=== PATIENT | male | born 1930 | race Caucasian/White ===

== ENCOUNTER 2016-10-23 09:09 | Emergency (ER) | payer MEDICARE, BC ==
[~2016-10-23] VITALS: Ht 180.3 cm; Wt 79.0 kg
[2016-10-23 09:13] VITALS: BP 137/80; PULSE 81; RESP 16; TEMP 97.9; O2SAT 90
[2016-10-23] MEDS ORDERED: ASPI325T PO (09:25)
[2016-10-23] MEDS ORDERED: CLON0.1T PO (09:25)
[2016-10-23] MEDS ORDERED: METO50TA11 PO (09:25)
[2016-10-23] MEDS ORDERED: DORZ2SOL LEFT EYE (09:25)
[2016-10-23] MEDS ORDERED: BRIM0.155 EACH EYE (09:25)
[2016-10-23] MEDS ORDERED: OMEP40CA2 PO (09:25)
[2016-10-23] MEDS ORDERED: DILT0.05 PO (09:25)
[2016-10-23] MEDS ORDERED: LUMI0.01 LEFT EYE (09:25)
[2016-10-23] MEDS ORDERED: SULF10SU3 LEFT EYE (09:25)
[2016-10-23] MEDS ORDERED: LOSA100T2 PO (09:25)
[2016-10-23] MEDS ORDERED: FEXO15TA PO (09:25)
[2016-10-23] MEDS ORDERED: ALFU10TA2 PO (09:25)
[2016-10-23] MEDS ORDERED: ZITHTAB PO (10:00)
[2016-10-23] MEDS ORDERED: CHERSYP2 PO ×2 (10:00→10:06)
--- NOTE | 2016-10-23 10:00 | PD ---
HPI Chief Complaint: ENT Complaint Time Seen by Provider: 09:54 Travel History International Travel<30 days: No Contact w/Intl Traveler<30days: No Traveled to known affect area: No History of Present Illness HPI Patient presents with complaints of sore throat since last night. Denies nausea vomiting diarrhea or fever. No new rashes. No sick contacts. No tobacco exposure. No history of lung disease. PFSH Past Medical History Atrial Fibrillation: Yes High Cholesterol: Yes GERD: Yes Glaucoma: Yes Hypertension: Yes Medical other: Yes (CATARACTS) Past Surgical History Cardiac Surgery: Yes (PACEMAKER, AV NODE ABLATION) Eye Surgery: Yes (CATARACT, GLAUCOMA) Neurologic Surgery: Yes (BRAIN) Other Surgery: Yes (TORN SPLEEN) Social History Alcohol Use: Yes (SOCIALLY) Tobacco Use: No Substance Use: No Allergies-Medications (Allergen,Severity, Reaction): Coded Allergies: No Known Allergies (Unverified , 10/23/16) Reported Meds & Prescriptions Reported Meds & Active Scripts Active Reported Pamela Allergy (Fexofenadine HCl) 180 Mg Tab 180 Mg PO DAILY Aspirin 325 Mg Tab 325 Mg PO DAILY Blephamide Opth Drops (Prednisolone/Sulfacetamide) 10-0.2 % Susp 2 Drop LEFT EYE Q4H [place] Opth Drops (Bimatoprost) 0.01% Soln 1 Drop LEFT EYE HS Brimonidine Opth Drops (Brimonidine Tartrate) 0.15% Soln 1 Drop EACH EYE TID Dorzolamide Opth Drops (Dorzolamide HCl) 2% Soln 1 Drop LEFT EYE TID Alfuzosin ER 24 HR 10 Mg Tab 10 Mg PO DAILY Omeprazole 40 Mg Cap 40 Mg PO DAILY Losartan-Hydrochlorothiazide 100-25 Mg Tab 1 Tab PO DAILY Clonidine (Clonidine HCl) 0.1 Mg Tab 0.1 Mg PO HS Metoprolol Succinate ER 24 HR (Metoprolol Succinate) 50 Mg Tab 50 Mg PO BID Diltiazem ER 24 HR 180 Mg Lorelei 180 Mg PO DAILY Review of Systems General / Constitutional: No: Fever Eyes: No: Visual changes HENT: Positive: Sore Throat, No: Headaches Cardiovascular: No: Chest Pain or Discomfort Respiratory: No: Shortness of Breath Gastrointestinal: No: Abdominal Pain Genitourinary: No: Dysuria Musculoskeletal: No: Pain Skin: No Rash Neurologic: No: Weakness Psychiatric: No: Depression Endocrine: No: Polydipsia Hematologic/Lymphatic: No: Easy Bruising Physical Exam Narrative GENERAL: Well-nourished, well-developed patient. SKIN: Warm and dry. HEAD: Normocephalic. EYES: No scleral icterus. No injection or drainage. NECK: Supple, trachea midline. No JVD or lymphadenopathy. Throat erythematous without adenopathy or exudate CARDIOVASCULAR: Regular rate and rhythm without murmurs, gallops, or rubs. RESPIRATORY: Breath sounds equal bilaterally. No accessory muscle use. GASTROINTESTINAL: Abdomen soft, non-tender, nondistended. MUSCULOSKELETAL: No cyanosis, or edema. BACK: Nontender without obvious deformity. No CVA tenderness. Data Data Last Documented VS Vital Signs Date Time Temp Pulse Resp B/P Pulse Ox O2 Delivery O2 Flow Rate FiO2 10/23/16 09:13 97.9 81 16 137/80 90 MDM Medical Decision Making Medical Screen Exam Complete: Yes Emergency Medical Condition: Yes Differential Diagnosis Pharyngitis, laryngitis, strep throat Narrative Course Assessment assessment and plan discussed with patient bedside Diagnosis Primary Impression: Pharyngitis Qualified Code: J02.9 - Pharyngitis, unspecified etiology Patient Instructions: General Instructions Additional Instructions: Encouraged rest fluids and Motrin, follow-up with PCP symptoms do not improve Med/Other Pt SpecificInfo: Prescription(s) given Scripts Guaifenesin-Codeine Liq (Cheratussin AC Liq)100-10 Mg/5 Ml Syrp5-10 Ml PO Q4H PRN (COUGH AND COLD SYMPTOMS) #120 ML Ref 0 Do not exceed 6 doses/24 hrs. Prov:Margarito Manning MD 10/23/16 Azithromycin (Zithromax Z-Mukund)250 Mg Ebnt454 Mg PO DIRECTED #1 DSPK Ref 0 500 MG (2 tabs) day 1, then 1 tab days 2-5. Prov:Margarito Manning MD 10/23/16 Disposition: 01 DISCHARGE HOME Condition: Good Margarito Manning MD Oct 23, 2016 10:00
== END 2016-10-23 10:27 | disposition home or self-care (01) ==
LOC: PHED 09:09
DX: J02.9 Acute pharyngitis, unspecified (principal); I48.91 Unspecified atrial fibrillation; E78.00 Pure hypercholesterolemia, unspecified; K21.9 Gastro-esophageal reflux disease without esophagitis; I10 Essential (primary) hypertension
CPT/HCPCS: 99282

== ENCOUNTER → 2017-10-12 | Outpatient (CLI) | payer MEDICARE, BC ==
[~2017-10-12] MED LIST: ALFU10TA2 PO; ASPI-183 PO; BRIM0.155 EACH EYE; CHERSYP2 PO; CLON0.1T PO; DILT0.05 PO; DORZ2SOL LEFT EYE; FEXO15TA PO; LOSA100T2 PO; LUMI0.01 LEFT EYE; METO1TAB9 PO; OMEP40CA2 PO; SULF10SU3 LEFT EYE; ZITHTAB PO
--- NOTE | 2017-10-12 15:32 | RADRPT ---
EXAM DATE/TIME: 10/12/2017 13:34 [place] COMPARISON: No previous studies available for comparison. INDICATIONS : Short of breath. RADIATION DOSE: 12.94 CTDIvol (mGy) MEDICAL HISTORY : Chronic obstructive pulmonary disease. SURGICAL HISTORY : Pacemaker. ENCOUNTER: Initial ACUITY: 2 months PAIN SCALE: 3/10 LOCATION: Bilateral chest TECHNIQUE: Volumetric scanning of the chest was performed. Using automated exposure control and adjustment of t he mA and/or kV according to patient size, radiation dose was kept as low as reasonably achievable to obtain optimal diagnostic quality images. DICOM format image data is available electronically for r eview and comparison. Follow-up recommendations for detected pulmonary nodules are based at a minimum on nodule size and pa tient risk factors according to Fleischner Society Guidelines. FINDINGS: LUNGS: Marked emphysematous changes are present with hyperinflation. There is other consolidation. Trace pleural effusions are evident MEDIASTINUM: Moderate coronary calcifications are noted. The heart is enlarged with trace pericardial effusion. Defibrillator is evident . AXILLAE: Within normal limits. No lymphadenopathy. MUSCULOSKELETAL: Changes thoracic spine MISCELLANEOUS: The visualized upper abdominal organs demonstrate no acute abnormality. CONCLUSION: Marked emphysematous changes without hyperinflation. Compensated cardiomegaly with moderate coronary calcifications. Trace pleural effusions. Kiel Govea MD FACR on October 12, 2017 at 15:22 Board Certified Radiologist. This report was verified electronically.
== END ==
LOC: HRSP 11:41
DX: J44.9 Chronic obstructive pulmonary disease, unspecified (principal); R06.00 Dyspnea, unspecified; I10 Essential (primary) hypertension
CPT/HCPCS: 71250; 94060; 94726; 94729

== ENCOUNTER 2017-11-17 12:33 | Emergency (ER) | payer MEDICARE, BC ==
[~2017-11-17] VITALS: Ht 180.3 cm; Wt 80.5 kg
[2017-11-17 12:40] VITALS: BP 125/62; PULSE 81; RESP 18; TEMP 97.6; O2SAT 93
[2017-11-17] MEDS ORDERED: SODIUM CHLOR 0.9% 1000 ML INJ 1,000 ML IV SCH (12:57)
--- NOTE | 2017-11-17 12:59 | PD ---
HPI Chief Complaint: GI Complaint Time Seen by Provider: 12:49 Travel History International Travel<30 days: No Contact w/Intl Traveler<30days: No Traveled to known affect area: No History of Present Illness HPI 87-year-old male complains of nausea and vomiting since yesterday evening about 9 PM. At least 15 episodes of vomiting occurred overnight. No blood. Positive flatus. Positive bowel movements. No diarrhea or fever. No similar prior episodes. Food yesterday was [place], eggs and hash browns. Pt reports hash browns may have been spoiled. PFSH Past Medical History Atrial Fibrillation: Yes Cardiovascular Problems: Yes (Pacer) High Cholesterol: Yes GERD: Yes Glaucoma: Yes Hypertension: Yes Respiratory: Yes (COPD) Influenza Vaccination: Yes ?: Not Past Surgical History Cardiac Surgery: Yes (PACEMAKER, AV NODE ABLATION) Eye Surgery: Yes (CATARACT, GLAUCOMA) Neurologic Surgery: Yes (BRAIN) Other Surgery: Yes (TORN SPLEEN) Social History Alcohol Use: Yes (2 DRINKS PER NIGHT) Tobacco Use: No Substance Use: No Allergies-Medications (Allergen,Severity, Reaction): Coded Allergies: No Known Allergies (Unverified Adverse Reaction, Unknown, 11/17/17) Reported Meds & Prescriptions Reported Meds & Active Scripts Active Reported Duoneb (Ipratropium-Albuterol Neb) 0.5-2.5 Mg/3 Ml Neb 1 Nebule INH DAILY Ipratropium Neb (Ipratropium [place]) 0.5 Mg/2.5 Ml Amp 0.5 Mg NEB TID Pamela Allergy (Fexofenadine HCl) 180 Mg Tab 180 Mg PO DAILY Latanoprost Opth Drops (Latanoprost) 0.005% Drops 1 Drop EACH EYE HS Refrigerate until opened. Verapamil ER 24 HR (Verapamil HCl) 240 Mg Tab 240 Mg PO DAILY Aspirin 325 Mg Tab 325 Mg PO DAILY Blephamide Opth Drops (Prednisolone/Sulfacetamide) 10-0.2 % Susp 2 Drop LEFT EYE Q4H Brimonidine Opth Drops (Brimonidine Tartrate) 0.15% Soln 1 Drop EACH EYE TID Dorzolamide Opth Drops (Dorzolamide HCl) 2% Soln 1 Drop LEFT EYE TID Alfuzosin ER 24 HR 10 Mg Tab 10 Mg PO DAILY Omeprazole 40 Mg Cap 40 Mg PO DAILY Losartan-Hydrochlorothiazide 100-25 Mg Tab 1 Tab PO DAILY Clonidine (Clonidine HCl) 0.1 Mg Tab 0.2 Mg PO HS Metoprolol Succinate ER 24 HR (Metoprolol Succinate) 50 Mg Tab 50 Mg PO BID Review of Systems Except as stated in HPI: all other systems reviewed are Neg General / Constitutional: No: Fever Eyes: No: Photophobia HENT: No: Vertigo Physical Exam Narrative GENERAL: 87 yo M, WNWD, NAD Vital Signs Date Time Temp Pulse Resp B/P (MAP) Pulse Ox O2 Delivery O2 Flow Rate FiO2 11/17/17 12:52 16 11/17/17 12:40 97.6 81 18 125/62 (83) 93 SKIN: Warm and dry. HEAD: Atraumatic. Normocephalic. EYES: Pupils equal and round. No scleral icterus. No injection or drainage. ENT: No nasal bleeding or discharge. Mucous membranes pink and moist. NECK: Trachea midline. No JVD. CARDIOVASCULAR: Regular rate and rhythm. RESPIRATORY: No accessory muscle use. Clear to auscultation. Breath sounds equal bilaterally. GASTROINTESTINAL: Abdomen soft, non-tender, nondistended. Hepatic and splenic margins not palpable. MUSCULOSKELETAL: Extremities without clubbing, cyanosis, or edema. No obvious deformities. NEUROLOGICAL: Awake and alert. No obvious cranial nerve deficits. Motor grossly within normal limits. Five out of 5 muscle strength in the arms and legs. Normal speech. PSYCHIATRIC: Appropriate mood and affect; insight and judgment normal. Data Data Last Documented VS Vital Signs Date Time Temp Pulse Resp B/P (MAP) Pulse Ox O2 Delivery O2 Flow Rate FiO2 11/17/17 13:52 11/17/17 13:45 70 16 91 11/17/17 12:40 97.6 Orders Orders Basic Metabolic Panel (Bmp) (11/17/17 12:57) Complete Blood Count With Diff (11/17/17 12:57) Iv Access Insert/Monitor (11/17/17 12:57) Ecg Monitoring (11/17/17 12:57) Oximetry (11/17/17 12:57) Ondansetron Inj (Zofran Inj) (11/17/17 13:00) Sodium Chlor 0.9% 1000 Ml Inj (Ns 1000 M (11/17/17 12:57) Sodium Chloride 0.9% Flush (Ns Flush) (11/17/17 13:00) Oral Rehydration (11/17/17 13:49) Ed Discharge Order (11/17/17 13:50) Labs Laboratory Tests Test 11/17/17 13:05 White Blood Count 6.5 TH/MM3 Red Blood Count 4.47 MIL/MM3 Hemoglobin 15.1 GM/DL Hematocrit 45.6 % Mean Corpuscular Volume 102.0 FL Mean Corpuscular Hemoglobin 33.7 PG Mean Corpuscular Hemoglobin Concent 33.1 % Red Cell Distribution Width 12.1 % Platelet Count 171 TH/MM3 Mean Platelet Volume 6.7 FL Neutrophils (%) (Auto) 91.6 % Lymphocytes (%) (Auto) 3.1 % Monocytes (%) (Auto) 4.3 % Eosinophils (%) (Auto) 0.7 % Basophils (%) (Auto) 0.3 % Neutrophils # (Auto) 6.0 TH/MM3 Lymphocytes # (Auto) 0.2 TH/MM3 Monocytes # (Auto) 0.3 TH/MM3 Eosinophils # (Auto) 0.0 TH/MM3 Basophils # (Auto) 0.0 TH/MM3 CBC Comment DIFF FINAL Differential Comment Blood Urea Nitrogen 22 MG/DL Creatinine 1.20 MG/DL Random Glucose 168 MG/DL Calcium Level 9.2 MG/DL Sodium Level 129 MEQ/L Potassium Level 3.9 MEQ/L Chloride Level 92 MEQ/L Carbon Dioxide Level 28.9 MEQ/L Anion Gap 8 MEQ/L Estimat Glomerular Filtration Rate 57 ML/MIN MDM Medical Decision Making Medical Screen Exam Complete: Yes Emergency Medical Condition: Yes Medical Record Reviewed: Yes Differential Diagnosis Constipation, Gastritis, Acute Cholecystitis, Biliary Colic, Pancreatitis, PANTOJA , Hepatitis, Bowel Obstruction, Cystitis, Mesenteric Ischemia, AAA, Appendicitis , Renal Stone/Hydronephrosis, GERD, perforated viscous Narrative Course CBC & BMP Diagram 11/17/17 13:05 Calcium Level 9.2 1L NS given along with zofran Time of reassessment: 1400 hrs.: Patient reports feeling much better. Patient tolerated about 10 ounces of Gatorade. He received Zofran and normal saline. The patient's ready for discharge. Diagnosis Primary Impression: Nausea & vomiting Qualified Codes: R11.2 - Nausea with vomiting, unspecified Additional Impressions: Hyponatremia Dehydration Referrals: Primary Care Physician Med/Other Pt SpecificInfo: Prescription(s) given Disposition: 01 DISCHARGE HOME Condition: Stable Bony Taylor MD Nov 17, 2017 12:59
[2017-11-17] MEDS ORDERED: SODIUM CHLORIDE 0.9% FLUSH 10 ML FLUSH IV FLUSH PRN (13:00)
[2017-11-17] MEDS ORDERED: ONDANSETRON HCL 4 MG/2 ML VIAL IVP ONE (13:00)
[2017-11-17 13:19] LABS: BASOPHIL % 0.3 % (0.0-2.0); EOSINOPHIL % 0.7 % (0.0-4.0); HEMATOCRIT 45.6 % (39.0-51.0); HEMOGLOBIN 15.1 GM/DL (13.0-17.0); LYMPH % 3.1 % (9.0-44.0); LYMPHOCYTE # 0.2 TH/MM3 (1.0-4.8); MEAN CORPUSCULAR HEMOGLOBIN 33.7 PG (27.0-34.0); MEAN CORPUSCULAR HGB CONC 33.1 % (32.0-36.0); MEAN PLATELET VOLUME 6.7 FL (7.0-11.0); MONO % 4.3 % (0.0-8.0); MONOCYTE # 0.3 TH/MM3 (0-0.9); NEUT % 91.6 % (16.0-70.0); PLATELET COUNT 171 TH/MM3 (150-450); RED BLOOD COUNT 4.47 MIL/MM3 (4.50-5.90); RED CELL DISTRIBUTION WIDTH 12.1 % (11.6-17.2); WHITE BLOOD COUNT 6.5 TH/MM3 (4.0-11.0)
[2017-11-17] MEDS ORDERED: VERA1TAB17 PO (13:28)
[2017-11-17] MEDS ORDERED: LATA0.002 EACH EYE (13:28)
[2017-11-17] MEDS ORDERED: FEXO15TA PO (13:28)
[2017-11-17] MEDS ORDERED: IPRA0.02 NEB (13:28)
[2017-11-17 13:29] LABS: CALCIUM 9.2 MG/DL (8.5-10.1)
[2017-11-17 13:30] LABS: BICARBONATE 28.9 MEQ/L (21.0-32.0)
[2017-11-17] MEDS ORDERED: IPRASOL INH (13:30)
[2017-11-17 13:33] LABS: CREATININE 1.2 MG/DL (0.60-1.30)
[2017-11-17 13:45] VITALS: BP 98/51; PULSE 70; RESP 16; O2SAT 91
[2017-11-17] MEDS ORDERED: ZOFR4TAB3 SL (14:07)
== END 2017-11-17 14:19 | disposition home or self-care (01) ==
LOC: PHED 12:33
DX: R11.2 Nausea with vomiting, unspecified (principal); E87.1 Hypo-osmolality and hyponatremia; E86.0 Dehydration; I48.91 Unspecified atrial fibrillation; E78.00 Pure hypercholesterolemia, unspecified; K21.9 Gastro-esophageal reflux disease without esophagitis; I10 Essential (primary) hypertension; J44.9 Chronic obstructive pulmonary disease, unspecified
CPT/HCPCS: 80048; 85025; 96361; 96374; 99284; J2405; J7030

== ENCOUNTER 2018-06-19 08:58 | Inpatient (IN) ==
[2018-06-19] MEDS ORDERED: MethylPREDNISolone Sod Succinate Inj 125 MG/2 ML Vial IV.PUSH ONE (09:02)
[2018-06-19 09:22] LABS: Baso % (Auto) 0.4 % (0.0-2.0); Eos % (Auto) 0.7 % (0.0-4.0); Hematocrit 41.1 % (39.0-51.0); Lymph # (Auto) 0.3 th/mm3 (1.0-4.8); Lymph % (Auto) 4.2 % (9.0-44.0); Mean Corpuscular Hemoglobin 35.8 pg (27.0-34.0); Mean Corpuscular Volume 105.2 fL (80.0-100.0); Mean Platelet Volume 7.3 fL (7.0-11.0); Mono # (Auto) 0.6 th/mm3 (0.0-0.9); Mono % (Auto) 9.3 % (0.0-8.0); Neut % (Auto) 85.4 % (16.0-70.0); Platelet Count 181 th/mm3 (150-450); Red Blood Count 3.91 mil/mm3 (4.50-5.90); Red Cell Distribution Width 12.1 % (11.6-17.2); White Blood Count 6.9 th/mm3 (4.0-11.0)
[2018-06-19] MEDS ORDERED: Azithromycin Inj 500 MG in Sodium Chlor 0.9% Inj 250 ML IV.SIG ONE (09:25)
--- NOTE | 2018-06-19 09:29 | ED ---
HPI General Chief Complaint: Respiratory Symptoms Stated Complaint: breathing problems Time Seen by Provider: 06/19/18 09:01 Source: patient Mode of arrival: EMS Limitations: no limitations History of Present Illness HPI Narrative: Patient is an 87-year-old male with history of COPD, presents the emergency room complaints of shortness of breath. Patient reports that he is not oxygen dependent and quit smoking about 40 years ago. Patient reports that about 3-4 days ago, he began to feel short of breath. Patient reports that along with his shortness of breath, he has had a nonproductive cough. Patient reports that shortness of breath is exacerbated by ambulation, nothing makes it better. Patient has also noticed increased wheezing, he did try taking a nebulizer treatment but has not noticed any difference or improvement with the symptoms. Patient reports that at baseline, he is very active and golfs every day, patient has not been able to golf for the past 3-4 days. Patient denies any fevers, reports that he has been getting night sweats. Denies any sick contacts at home. Patient did receive 3 nebulizer treatments prior to arrival to the ER. EMS noted that patient was hypoxic with a pulse ox of 87% on room air. Onset (ago): day(s) (3-4 days) Duration: constant Severity: severe Relieving factors: nothing Exacerbating factors: exertion Description of mucous: Reports clear and watery Able to tolerate fluids by mouth: Yes Associated symptoms: Reports myalgias, cough and shortness of breath Treatments prior to arrival: Reports other (nebulizer treatments) Related Data Home Medications Medication Instructions Recorded Confirmed acetaminophen [Tylenol] 500 mg PO BID 06/19/18 06/19/18 alfuzosin 10 mg PO HS 06/19/18 06/19/18 aspirin 325 mg PO DAILY 06/19/18 06/19/18 brimonidine 1 drp LEFT EYE BID 06/19/18 06/19/18 clonidine HCl 0.2 mg PO HS 06/19/18 06/19/18 dorzolamide 1 drp LEFT EYE BID 06/19/18 06/19/18 fexofenadine [Pamela Allergy] 180 mg PO DAILY 06/19/18 06/19/18 fluticasone 2 spray INTRANASAL DAILY PRN 06/19/18 06/19/18 ipratropium-albuterol 3 ml INHALATION Q8H 06/19/18 06/19/18 latanoprost 1 drp LEFT EYE QPM 06/19/18 06/19/18 losartan-hydrochlorothiazide 1 tab PO DAILY 06/19/18 06/19/18 metoprolol succinate 50 mg PO BID 06/19/18 06/19/18 omeprazole 40 mg PO HS 06/19/18 06/19/18 prednisolone acetate 1 drp RIGHT EYE BID 06/19/18 06/19/18 tiotropium-olodaterol [Stiolto 2 puff INHALATION DAILY 06/19/18 06/19/18 Respimat] verapamil 240 mg PO DAILY 06/19/18 06/19/18 Allergies Allergy/AdvReac Type Severity Reaction Status Date / Time No Known Allergies Allergy Verified 06/19/18 09:04 Review of Systems ROS: all other systems reviewed are negative [facility] Medical History Medical History Atrial fibrillation (Acute) BPH (benign prostatic hyperplasia) (Acute) COPD (chronic obstructive pulmonary disease) (Acute) High cholesterol (Acute) Hypertension (Acute) Intracranial hemorrhage (Acute) Vertigo (Acute) Social History Social History Substance History: Active Abuse Smoking Status: Former smoker How Often Do You Have a Drink Containing Alcohol: 4 or more times a week Recent Travel in [facility] within the Last 8 Weeks: No Recent Out of Country Travel within the Last 8 Weeks: No Substance Abuse Detail Alcohol: Substance Use Status: Active Route Used Substance Abuse: By Mouth Substance Frequency: 2 mixed drinks/day Immunization History Tetanus Immunization: <5 Years Exam Narrative Exam Narrative: GENERAL: Moderate distress SKIN: Focused skin assessment warm/dry. HEAD: Atraumatic. Normocephalic. EYES: Pupils equal and round. No scleral icterus. No injection or drainage. ENT: No nasal bleeding or discharge. Mucous membranes pink and moist. NECK: Trachea midline. No JVD. CARDIOVASCULAR: Tachycardic. No murmur appreciated. RESPIRATORY: Positive accessory muscle use - intercostal retractions evident. Scattered wheezing. Breath sounds equal bilaterally. GASTROINTESTINAL: Abdomen soft, non-tender, nondistended. Hepatic and splenic margins not palpable. MUSCULOSKELETAL: No obvious deformities. No clubbing. No cyanosis. No edema. NEUROLOGICAL: Awake and alert. No obvious cranial nerve deficits. Motor grossly within normal limits. Normal speech. PSYCHIATRIC: Appropriate mood and affect; insight and judgment normal. Course Initial Documented Vital Signs Temperature 99.3 F 06/19/18 09:00 Pulse Rate 75 06/19/18 09:00 Respiratory Rate 26 H 06/19/18 09:00 Blood Pressure 154/78 H 06/19/18 09:00 Pulse Oximetry 86 L 06/19/18 09:00 Last Documented Vital Signs Temperature 99.3 F 06/19/18 09:00 Pulse Rate 71 06/19/18 09:55 Respiratory Rate 22 06/19/18 09:55 Blood Pressure 107/44 L 06/19/18 09:55 Pulse Oximetry 89 L 06/19/18 09:55 Critical Care Time Critical Care Time: Yes Total Critical Care Time: 30 Attestation: Aggregate critical care time was 30 minutes. Time to perform other separately billable procedures was not included in the critical care time. My time did not include minutes spent treating any other patients simultaneously or on activities that did not directly contribute to the patient's treatment. The services I provided to this patient were to treat and/or prevent clinically significant deterioration that could result in: , decompensation, deterioration I provided critical care services requiring my management, as noted below: Chart data review, documentation time, medication orders and management, vital sign assessments/reviewing monitor data, ordering and reviewing lab tests, ordering and interpreting/reviewing x-rays and diagnostic studies, care of the patient and discussion of the patient with the admitting physicians. Medical Decision Making MDM Narrative Medical decision making narrative: During the course of the patients emergency department visit, the patients history, examination, and differential diagnosis were reviewed with the patient. The patient was placed on a radiation monitor with oximetry and frequent blood pressure monitoring. The patient had an IV access obtained and blood work sent for analysis. The patient was initially provided IV steroids as well as duonebs, oxygen was placed as patient was hypoxic with a pulse ox of 84-87% on room air. I did initiate a sepsis workup - patient has been pancultured The patients laboratory studies were reviewed and remarkable for: WBC 6.9, hemoglobin 14.0, hematocrit 41.1, platelets 181 Sodium 135, potassium 3.4, chloride 98, BUN 32, creatinine 1.60, lactic acid 2.9 Glucose 155 ABG on 4 L of oxygen shows that his oxygen sats are 89% X-ray of the lung shows patchy infiltrates throughout the right lung. Patient with pneumonia, he has been pancultured and been given azithromycin as well as Rocephin for treatment of community acquired pneumonia. Patient is hypoxic, he will require admission to the hospital. case reviewed with Dr. Russell who accepts pt to service Medical Screen Exam Complete: Yes Emergency Medical Condition: Yes Differential Diagnosis Differential Diagnosis: Sepsis, pneumonia, COPD exacerbation, PE Medical Records Medical records reviewed: Yes I reviewed the patient's medical records. Lab Data Result diagrams: 06/19/18 09:00 06/19/18 09:00 Lab Results 06/19/18 06/19/18 06/19/18 Range/Units 09:00 09:00 09:00 CBC w Diff Auto diff final WBC 6.9 (4.0-11.0) th/mm3 RBC 3.91 L (4.50-5.90) mil/mm3 Hgb 14.0 (13.0-17.0) gm/dL Hct 41.1 (39.0-51.0) % MCV 105.2 H (80.0-100.0) fL MCH 35.8 H (27.0-34.0) pg MCHC 34.0 (32.0-36.0) % RDW 12.1 (11.6-17.2) % Plt Count 181 (150-450) th/mm3 MPV 7.3 (7.0-11.0) fL Neut % (Auto) 85.4 H (16.0-70.0) % Lymph % (Auto) 4.2 L (9.0-44.0) % [place] % (Auto) 9.3 H (0.0-8.0) % Eos % (Auto) 0.7 (0.0-4.0) % Baso % (Auto) 0.4 (0.0-2.0) % Neut # (Auto) 6.0 (1.8-7.7) th/mm3 Lymph # (Auto) 0.3 L (1.0-4.8) th/mm3 [place] # (Auto) 0.6 (0.0-0.9) th/mm3 Eos # (Auto) 0.0 (0.0-0.4) th/mm3 Baso # (Auto) 0.0 (0.0-0.2) th/mm3 WBC Differential . Differential Comment . PT 12.3 H (9.8-11.6) sec INR 1.2 Ratio APTT 32.1 H (23.4-31.7) sec Puncture Site Patient Temperature O2 Saturation (90-100) % ABG pH (7.380-7.420) ABG pCO2 (38-42) mmHg ABG pO2 (61-120) mmHg ABG HCO3 (22-26) mmol/L ABG O2 Content (12.0-20.0) Vol % ABG Base Excess (-2-2) mmol/L ABG Methemoglobin (0-2) % Cl Test Hemoglobin (12.0-16.0) G/DL Carboxyhemoglobin (0-4) % O2 Delivery Device Liter Flow L/M Critical Value Sodium 135 L (136-145) meq/L Potassium 3.4 L (3.5-5.1) meq/L Chloride 98 (98-107) meq/L Carbon Dioxide 22.5 (21.0-32.0) meq/L Anion Gap 15 (5-15) meq/L BUN 32 H (7-18) mg/dL Creatinine 1.60 H (0.60-1.30) mg/dL Estimated GFR 41 L (>89) mL/min Random Glucose 155 H (74-106) mg/dL Lactic Acid (0.4-2.0) mmol/L Calcium 8.4 L (8.5-10.1) mg/dL Magnesium 1.8 (1.5-2.5) mg/dL Total Bilirubin 2.4 H (0.2-1.0) mg/dL AST 16 (15-37) U/L ALT 17 (12-78) U/L Alkaline Phosphatase 87 (45-117) U/L Total Creatine Kinase 69 (39-308) U/L Troponin I 0.02 (0.02-0.05) ng/mL Total Protein 6.9 (6.4-8.2) g/dL Albumin 3.1 L (3.4-5.0) g/dL 06/19/18 06/19/18 Range/Units 09:00 09:25 CBC w Diff WBC (4.0-11.0) th/mm3 RBC (4.50-5.90) mil/mm3 Hgb (13.0-17.0) gm/dL Hct (39.0-51.0) % MCV (80.0-100.0) fL MCH (27.0-34.0) pg MCHC (32.0-36.0) % RDW (11.6-17.2) % Plt Count (150-450) th/mm3 MPV (7.0-11.0) fL Neut % (Auto) (16.0-70.0) % Lymph % (Auto) (9.0-44.0) % [place] % (Auto) (0.0-8.0) % Eos % (Auto) (0.0-4.0) % Baso % (Auto) (0.0-2.0) % Neut # (Auto) (1.8-7.7) th/mm3 Lymph # (Auto) (1.0-4.8) th/mm3 [place] # (Auto) (0.0-0.9) th/mm3 Eos # (Auto) (0.0-0.4) th/mm3 Baso # (Auto) (0.0-0.2) th/mm3 WBC Differential Differential Comment PT (9.8-11.6) sec INR Ratio APTT (23.4-31.7) sec Puncture Site Right radial Patient Temperature 98.6 O2 Saturation 89 L* (90-100) % ABG pH 7.44 H (7.380-7.420) ABG pCO2 34 L (38-42) mmHg ABG pO2 67 (61-120) mmHg ABG HCO3 23 (22-26) mmol/L ABG O2 Content 16.5 (12.0-20.0) Vol % ABG Base Excess -1.1 (-2-2) mmol/L ABG Methemoglobin 1.5 (0-2) % Cl Test Present Hemoglobin 13.2 (12.0-16.0) G/DL Carboxyhemoglobin 2.7 (0-4) % O2 Delivery Device Nasal cannula Liter Flow 4.00 L/M Critical Value Yes Sodium (136-145) meq/L Potassium (3.5-5.1) meq/L Chloride (98-107) meq/L Carbon Dioxide (21.0-32.0) meq/L Anion Gap (5-15) meq/L BUN (7-18) mg/dL Creatinine (0.60-1.30) mg/dL Estimated GFR (>89) mL/min Random Glucose (74-106) mg/dL Lactic Acid 2.9 H (0.4-2.0) mmol/L Calcium (8.5-10.1) mg/dL Magnesium (1.5-2.5) mg/dL Total Bilirubin (0.2-1.0) mg/dL AST (15-37) U/L ALT (12-78) U/L Alkaline Phosphatase (45-117) U/L Total Creatine Kinase (39-308) U/L Troponin I (0.02-0.05) ng/mL Total Protein (6.4-8.2) g/dL Albumin (3.4-5.0) g/dL Imaging Data Radiologist's impression: Chest X-Ray 06/19/18 09:02 CONCLUSION: Patchy infiltrates throughout the right lung. Medical treatment and follow-up to resolution using serial radiographs. ECG Data EKG Prior to Arrival: No Attestation: I personally reviewed and interpreted this ECG as follows: Interpretation: EKG at 0918: Ventricular paced at 69bpm Discharge Plan Discharge Disposition Patient Disposition: 30 Still Patient Discharge Condition Condition: Serious Discharge Details Diagnosis: Hypoxia, Pneumonia, Hypokalemia, COPD exacerbation Physicians Team ED Provider: Dory Almendarez Primary Care Provider: Raffy Cooley Rxs /Orders / Referrals /Forms Prescriptions: No Action latanoprost 0.005 % Drops 1 drp LEFT EYE QPM RF: 0 ipratropium-albuterol 0.5 mg-3 mg(2.5 mg base)/3 mL Solution For Nebulization 3 ml INHALATION Q8H RF: 0 aspirin 325 mg Tablet 325 mg PO DAILY RF: 0 metoprolol succinate 50 mg Tablet Extended Release 24 Hr 50 mg PO BID RF: 0 fexofenadine [Pamela Allergy] 180 mg Tablet 180 mg PO DAILY RF: 0 omeprazole 40 mg Capsule,Delayed Release(Dr/Ec) 40 mg PO HS RF: 0 prednisolone acetate 0.12 % Drops,Suspension 1 drp RIGHT EYE BID RF: 0 losartan-hydrochlorothiazide 100-25 mg Tablet 1 tab PO DAILY RF: 0 clonidine HCl 0.2 mg Tablet 0.2 mg PO HS RF: 0 brimonidine 0.2 % Drops 1 drp LEFT EYE BID RF: 0 fluticasone 50 mcg/actuation [place],Suspension 2 spray INTRANASAL DAILY PRN (Reason: Allergic Symptoms) RF: 0 verapamil 240 mg Capsule,Ext Rel. Pellets 24 Hr 240 mg PO DAILY RF: 0 dorzolamide 2 % Drops 1 drp LEFT EYE BID RF: 0 alfuzosin 10 mg Tablet Extended Release 24 Hr 10 mg PO HS RF: 0 acetaminophen [Tylenol] 325 mg Capsule 500 mg PO BID RF: 0 tiotropium-olodaterol [Stiolto Respimat] 2.5-2.5 mcg/actuation Mist 2 puff INHALATION DAILY RF: 0 Status ED Status: With Doctor
[2018-06-19 09:32] LABS: ABG Base Excess -1.1 mmol/L (-2-2); ABG PCO2 34 mmHg (38-42); ABG PO2 67 mmHg (61-120)
[2018-06-19 09:33] LABS: Activated Partial Thrombo Time 32.1 sec (23.4-31.7); INR 1.2 Ratio; Prothrombin Time 12.3 sec (9.8-11.6)
--- NOTE | 2018-06-19 09:41 | XR ---
EXAM DATE: 06/19/2018 9:37 AM EST AGE/SEX: 87 years / Male INDICATIONS: Short of breath. CLINICAL DATA: This is the patient's initial encounter. Patient reports that signs and symptoms have been present for 4 - 6 days and indicates a pain score of 0/10. MEDICAL/SURGICAL HISTORY: Chronic obstructive pulmonary disease. Pacemaker. COMPARISON: No prior exams available for comparison. FINDINGS: A single AP view of the chest demonstrates patchy opacities throughout the right upper lobe, right mi ddle lobe and right lower lobe. Left lung relatively clear although there is some subsegmental atelec tasis left lung base. Heart enlarged. Left-sided pacemaker with 2 intact leads.. The cardiomediastin al contours are unremarkable. Osseous structures are intact. CONCLUSION: Patchy infiltrates throughout the right lung. Medical treatment and follow-up to resolution using ser ial radiographs. Electronically signed by: Eugene Valiente MD 06/19/2018 9:39 AM EST
[2018-06-19 09:54] LABS: Chloride 98 meq/L (98-107); Potassium 3.4 meq/L (3.5-5.1); Sodium 135 meq/L (136-145)
[2018-06-19 09:55] LABS: Albumin 3.1 g/dL (3.4-5.0); Anion Gap 15 meq/L (5-15); Blood Urea Nitrogen 32 mg/dL (7-18); Calcium 8.4 mg/dL (8.5-10.1); Carbon Dioxide 22.5 meq/L (21.0-32.0); Glucose,Random 155 mg/dL (74-106); Magnesium 1.8 mg/dL (1.5-2.5)
[2018-06-19 09:58] LABS: Alanine Aminotransferase 17 U/L (12-78); Aspartate Aminotransferase 16 U/L (15-37); Glomerular Filtration Rate 41 mL/min (>89)
[2018-06-19 09:59] LABS: Total Protein 6.9 g/dL (6.4-8.2)
[2018-06-19 10:01] LABS: Alkaline Phosphatase 87 U/L (45-117)
[2018-06-19 10:03] LABS: Creatine Kinase 69 U/L (39-308)
[2018-06-19 10:04] LABS: Troponin I 0.02 ng/mL (0.02-0.05)
[2018-06-19] MEDS: Sod Chloride 0.9% Inj 1,000 ML IV.SIG SCH ×2 (10:38→12:46)
[2018-06-19] MEDS ORDERED: Acetaminophen 325 MG Tablet PO PRN (10:50)
[2018-06-19] MEDS ORDERED: Bisacodyl 10 MG Supp RECTAL PRN (10:50)
[2018-06-19] MEDS ORDERED: Heparin - SQ 10,000 UNITS/ML Vial SQ SCH (11:00)
[2018-06-19] MEDS ORDERED: Haloperidol Inj 5 MG/ML Ampul IV.PUSH PRN (13:14)
[2018-06-19] MEDS ORDERED: LORazepam 1 MG Tablet PO PRN (13:14)
--- NOTE | 2018-06-19 13:15 | P.HP ---
History of Present Illness Primary Care Physician: Raffy Cooley MD Chief Complaint: Shortness of breath History of Present Illness: This is a 87-year-old male with history of COPD, atrial fibrillation, BPH, hyperlipidemia, hypertension, vertigo and remote intracranial hemorrhage. Patient presents to the emergency department complaining of shortness of breath associated with wheezing and nonproductive cough for 3-4 days. He has been using nebulization treatments without improvement of symptoms. Patient also complains of decreased exercise tolerance states he is very active and golfs every day which he has had been able to for the past 4 days. No fever but has been diaphoretic. Chest x-ray independently reviewed by me showed right lung pneumonia with patchy infiltrates. He received IV Rocephin and Zithromax in the emergency department. Patient seen on the floor states he is better thought he would not make it this morning. All other systems reviewed negative Inpatient Certification: I certify that the inpatient services were ordered in accordance with Medicare regulations governing the order. This includes certification that hospital inpatient services are reasonable and necessary and in the case of services not specified as inpatient-only under 42 CFR 419.22(n), that they are appropriately provided as inpatient services in accordance to with the 2-midnight benchmark under 43 CFR 412.3(e) Estimated Total Length of Stay (Days): 2 Plans for Post Hospital Care: Not yet determined Review of Systems All other systems reviewed negative except as stated in HPI PMFSH - History History Provided By: Patient - Medical History Medical History: Medical History (Last Updated 06/19/18 @ 13:50 by Ganesh Russell MD) Pacemaker (Acute) Atrial fibrillation BPH (benign prostatic hyperplasia) COPD (chronic obstructive pulmonary disease) High cholesterol Hypertension Intracranial hemorrhage Vertigo - Family History Family History: Family History (Last Updated 06/19/18 @ 13:51 by Ganesh Russell MD) Other No pertinent family history - Social History I have reviewed the patient's Social History: Yes - Tobacco History Second Hand Smoke Exposure: No Smoking Status: Former smoker - Alcohol History How Often Do You Have a Drink Containing Alcohol: 4 or more times a week - Substance Use History Substance History: No History of Abuse - Substance Use Type Alcohol Status: Active Route Used: By Mouth Frequency: 2 mixed drinks/day - Travel History Recent Travel in the [place] Within the Last 8 Weeks: No Recent Travel Out of the Country Within the Last 8 Weeks: No - Immunization History Tetanus Immunization: <5 Years Medications and Allergies Active Medications: Active Medications Acetaminophen (Tylenol) 650 mg PO Q4H PRN PRN Reason: Temp > 100.4 Albuterol (Duoneb Neb (Sosa)) 1 ampul NEB QID NEB [facility] Last Admin: 06/19/18 12:23 Dose: 1 ampul Albuterol (Albuterol Neb (Prn)) 2.5 mg NEB Q2HR NEB PRN PRN Reason: SHORTNESS OF BREATH Aspirin (Aspirin) 325 mg PO DAILY [facility] Bisacodyl (Dulcolax Supp) 10 mg RECTAL DAILY PRN PRN Reason: SEVERE CONSITIPATION Brimonidine Tartrate (Alphagan 0.2% Opth Drops) 1 drops LEFT EYE BID [facility] Clonidine HCl (Catapres) 0.2 mg PO HS [facility] Dorzolamide HCl (Trusopt 2% Opth Drops) 1 drop LEFT EYE BID [facility] Fluticasone Propionate (Flonase Nasal Eloy) 2 spray EACH NARE DAILY PRN PRN Reason: ALLERGIES Sodium Chloride (Ns Inj) 1,000 mls @ 50 mls/hr IV.CONT .Q20H [facility] Azithromycin 500 mg/ Sodium (Chloride) 250 mls @ 250 mls/hr IV.SIG Q24H [facility] Ceftriaxone Sodium 1,000 mg/ (Sodium Chloride) 100 mls @ 200 mls/hr IV.SIG Q24H [facility] Lactulose (Lactulose Liq) 30 ml PO DAILY PRN PRN Reason: SEVERE CONSITIPATION Latanoprost (Xalatan 0.005% Opth Drops) 1 drop LEFT EYE HS [facility] Loratadine (Claritin) 10 mg PO DAILY [facility] Methylprednisolone Sodium Succinate (Solumedrol Inj) 60 mg IV.PUSH Q6H [facility] Metoprolol Succinate (Toprol Xl) 50 mg PO BID [facility] Ondansetron HCl (Zofran Inj) 4 mg IV.PUSH Q6H PRN PRN Reason: NAUSEA OR VOMITING Pantoprazole Sodium (Protonix) 40 mg PO HS [facility] Patient Own Medication Prednisolone Acetate 0.12% Opth Susp 5 Ml Bottle 1 each RIGHT EYE BID [facility] Senna/Docusate Sodium (Chanelle-Colace) 1 tab PO BID [facility] Sennosides (Senokot) 17.2 mg PO Q12H PRN PRN Reason: Moderate Constipation Sodium Chloride (Ns Flush) 2 ml IV.FLUSH BID [facility] Tamsulosin HCl (Flomax) 0.4 mg PO DAILY [facility] Verapamil HCl (Isoptin Sr) 240 mg PO DAILY [facility] Allergies Allergy/AdvReac Type Severity Reaction Status Date / Time No Known Allergies Allergy Verified 06/19/18 09:04 Home Medications Medication Instructions Recorded Confirmed Type acetaminophen [Tylenol] 500 mg PO BID 06/19/18 06/19/18 History alfuzosin 10 mg PO HS 06/19/18 06/19/18 History aspirin 325 mg PO DAILY 06/19/18 06/19/18 History brimonidine 1 drp LEFT EYE BID 06/19/18 06/19/18 History clonidine HCl 0.2 mg PO HS 06/19/18 06/19/18 History dorzolamide 1 drp LEFT EYE BID 06/19/18 06/19/18 History fexofenadine [Pamela Allergy] 180 mg PO DAILY 06/19/18 06/19/18 History fluticasone 2 spray INTRANASAL DAILY PRN 06/19/18 06/19/18 History ipratropium-albuterol 3 ml INHALATION Q8H 06/19/18 06/19/18 History latanoprost 1 drp LEFT EYE QPM 06/19/18 06/19/18 History losartan-hydrochlorothiazide 1 tab PO DAILY 06/19/18 06/19/18 History metoprolol succinate 50 mg PO BID 06/19/18 06/19/18 History omeprazole 40 mg PO HS 06/19/18 06/19/18 History prednisolone acetate 1 drp RIGHT EYE BID 06/19/18 06/19/18 History tiotropium-olodaterol [Stiolto 2 puff INHALATION DAILY 06/19/18 06/19/18 History Respimat] verapamil 240 mg PO DAILY 06/19/18 06/19/18 History Exam Vital signs: Vital Signs 06/19/18 09:00 06/19/18 09:25 06/19/18 09:36 Temperature 99.3 F Pulse Rate 75 71 76 Respiratory Rate 26 H 22 22 Blood Pressure 154/78 H Pulse Oximetry 92 L 06/19/18 09:55 06/19/18 10:00 06/19/18 11:25 Temperature Pulse Rate 71 75 Respiratory Rate 22 22 Blood Pressure 107/44 L 98/54 L Pulse Oximetry 89 L 93 L 92 L Intake & Output 06/18/18 06/19/18 06/19/18 18:59 06:59 18:59 Intake Total 1350 / 1350 Balance 1350 / 1350 Weight 80.4 kg Intake: IV 1350 / 1350 Azithromycin Inj 500 MG In NS 250 / 250 Inj 250 ML @ 250 mls/hr IV.SIG ONCE ONE Rx#:[id number] NS Inj 1,000 ML @ 2000 mls/hr 1000 / 1000 IV.SIG Q30M [facility] Rx#:[id number] Rocephin Inj 1,000 MG In NS Inj 100 / 100 100 ML @ 200 mls/hr IV.SIG ONCE ONE Rx#:[id number] Other: Date of Last Bowel Movement 06/18/18 Weight On Admission 80.4 kg Narrative: GENERAL: Well-developed, well-nourished on nasal cannula SKIN: Warm and dry. HEAD: Atraumatic. Normocephalic. EYES: Pupils equal and round. No scleral icterus. No injection or drainage. ENT: No nasal bleeding or discharge. Mucous membranes pink and moist. NECK: Trachea midline. No JVD. CARDIOVASCULAR: Regular rate and rhythm. RESPIRATORY: No accessory muscle use. Decreased breath sounds right lung with mild expiratory wheezes GASTROINTESTINAL: Abdomen soft, non-tender, nondistended. MUSCULOSKELETAL: Extremities without clubbing, cyanosis, or edema. No obvious deformities. NEUROLOGICAL: Awake and alert. No obvious cranial nerve deficits. Motor grossly within normal limits. Five out of 5 muscle strength in the arms and legs. Normal speech. PSYCHIATRIC: Appropriate mood and affect; insight and judgment normal. Results - Labs CBC & Chem 7: 06/19/18 09:00 06/19/18 09:00 Labs: Laboratory Results - last 24 hr 06/19/18 06/19/18 06/19/18 09:00 09:00 09:00 CBC w Diff Auto diff final WBC 6.9 RBC 3.91 L Hgb 14.0 Hct 41.1 MCV 105.2 H MCH 35.8 H MCHC 34.0 RDW 12.1 Plt Count 181 MPV 7.3 Neut % (Auto) 85.4 H Lymph % (Auto) 4.2 L [place] % (Auto) 9.3 H Eos % (Auto) 0.7 Baso % (Auto) 0.4 Neut # (Auto) 6.0 Lymph # (Auto) 0.3 L [place] # (Auto) 0.6 Eos # (Auto) 0.0 Baso # (Auto) 0.0 WBC Differential . Differential Comment . PT 12.3 H INR 1.2 APTT 32.1 H Puncture Site Patient Temperature O2 Saturation ABG pH ABG pCO2 ABG pO2 ABG HCO3 ABG O2 Content ABG Base Excess ABG Methemoglobin Cl Test Hemoglobin Carboxyhemoglobin O2 Delivery Device Liter Flow Critical Value Sodium 135 L Potassium 3.4 L Chloride 98 Carbon Dioxide 22.5 Anion Gap 15 BUN 32 H Creatinine 1.60 H Estimated GFR 41 L Random Glucose 155 H Lactic Acid Calcium 8.4 L Magnesium 1.8 Total Bilirubin 2.4 H AST 16 ALT 17 Alkaline Phosphatase 87 Total Creatine Kinase 69 Troponin I 0.02 Total Protein 6.9 Albumin 3.1 L 06/19/18 06/19/18 06/19/18 09:00 09:25 12:19 CBC w Diff WBC RBC Hgb Hct MCV MCH MCHC RDW Plt Count MPV Neut % (Auto) Lymph % (Auto) [place] % (Auto) Eos % (Auto) Baso % (Auto) Neut # (Auto) Lymph # (Auto) [place] # (Auto) Eos # (Auto) Baso # (Auto) WBC Differential Differential Comment PT INR APTT Puncture Site Right radial Patient Temperature 98.6 O2 Saturation 89 L* ABG pH 7.44 H ABG pCO2 34 L ABG pO2 67 ABG HCO3 23 ABG O2 Content 16.5 ABG Base Excess -1.1 ABG Methemoglobin 1.5 Cl Test Present Hemoglobin 13.2 Carboxyhemoglobin 2.7 O2 Delivery Device Nasal cannula Liter Flow 4.00 Critical Value Yes Sodium Potassium Chloride Carbon Dioxide Anion Gap BUN Creatinine Estimated GFR Random Glucose Lactic Acid 2.9 H 1.4 Calcium Magnesium Total Bilirubin AST ALT Alkaline Phosphatase Total Creatine Kinase Troponin I Total Protein Albumin - Imaging Impressions Chest X-Ray 06/19/18 09:02 CONCLUSION: Patchy infiltrates throughout the right lung. Medical treatment and follow-up to resolution using serial radiographs. Caprini VTE Risk Assessment Caprini VTE Risk Assessment: Moderate/High Risk (score >= 2) Caprini Risk Assessment Model: Point Value = 1 Point Value = 2 Point Value = 3 Point Value = 5 Age 41-60 Minor surgery BMI > 25 kg/m2 Swollen legs Varicose veins or History of unexplained or recurrent spontaneous Oral contraceptives or hormone replacement Sepsis (< 1 month) Serious lung disease, including pneumonia (< 1 month) Abnormal pulmonary function Acute myocardial infarction Congestive heart failure (< 1 month) History of inflammatory bowel disease Medical patient at bed rest Age 61-74 Arthroscopic surgery Major open surgery (> 45 min) Laparoscopic surgery (> 45 min) Malignancy Confined to bed (> 72 hours) Immobilizing plaster cast Central venous access Age >= 75 History of VTE Family history of VTE Factor V Leiden Prothrombin [id number] Lupus anticoagulant Anticardiolipin antibodies Elevated serum homocysteine Heparin-induced thrombocytopenia Other congenital or acquired thrombophilia Stroke (< 1 month) Elective arthroplasty Hip, pelvis, or leg fracture Acute spinal cord injury (< 1 month) Prophylaxis Regimen: Total Risk Factor Score Risk Level Prophylaxis Regimen 0-1 Low Early ambulation 2 Moderate Order ONE of the following: *Sequential Compression Device (SCD) *Heparin 5000 units SQ BID 3-4 Higher Order ONE of the following medications: *Heparin 5000 units SQ TID *Enoxaparin/Lovenox 40 mg SQ daily (WT < 150 kg, CrCl > 30 mL/min) *Enoxaparin/Lovenox 30 mg SQ daily (WT < 150 kg, CrCl > 10-29 mL/min) *Enoxaparin/Lovenox 30 mg SQ BID (WT < 150 kg, CrCl > 30 mL/min) AND/OR *Sequential Compression Device (SCD) 5 or more Highest Order ONE of the following medications: *Heparin 5000 units SQ TID (Preferred with Epidurals) *Enoxaparin/Lovenox 40 mg SQ daily (WT < 150 kg, CrCl > 30 mL/min) *Enoxaparin/Lovenox 30 mg SQ daily (WT < 150 kg, CrCl > 10-29 mL/min) *Enoxaparin/Lovenox 30 mg SQ BID (WT < 150 kg, CrCl > 30 mL/min) AND *Sequential Compression Device (SCD) Assessment and Plan - Plan This is a 87-year-old male with history of COPD, atrial fibrillation, BPH, hyperlipidemia, hypertension, vertigo and remote intracranial hemorrhage. Patient presents with shortness of breath associated with wheezing and nonproductive cough for 3-4 days. Chest x-ray showed right lung pneumonia with patchy infiltrates. He received IV Rocephin and Zithromax in the emergency department. COPD exacerbation with hypoxia secondary to community-acquired pneumonia. Sepsis suspect. Continue nebulization, IV steroids, oxygen keep saturation at least 92%, Rocephin and Zithromax. Follow-up blood cultures and obtain sputum studies, Legionella and pneumococcal urinary antigens Acute kidney injury with hypokalemia. Nonoliguric. Patient received 2 L IV fluid in the ED. Check CPK and urinalysis and repeat BMP and magnesium in the morning. Avoid nephrotoxins Elevated bilirubin. Repeat LFTs in the morning Alcohol abuse. Monitor for withdrawal symptoms, cessation counseling provided and start rally pack and ativan prn for anxiety . [facility] protocol DVT prophylaxis with SCD and subcu heparin Discharge Planning: Discharge when clinically improved
[2018-06-19 14:53] LABS: Clarity,Urine Clear (Clear); Color,Urine Yellow (Yellw/Straw); Glucose,Urine (UA) 100 mg/dL (Negative); Leukocyte Esterase,Urine Negative (Negative); Nitrite,Urine Negative (Negative); Specific Gravity,Urine 1.025 (1.002-1.035)
[2018-06-19 14:58] LABS: Bilirubin,Urine Negative (Negative); Ictotest,Urine Negative (Negative)
[2018-06-19] MEDS: Sod Chloride 0.9% Inj 1,000 ML IV.CONT SCH (16:18)
[2018-06-19] MEDS ORDERED: MethylPREDNISolone Sod Succinate Inj 40 MG/ML Vial IV.PUSH SCH (17:00)
--- NOTE | 2018-06-19 20:17 | MB ---
cc: Jewels Gan MD DATE: 06/19/2018 REASON FOR CONSULTATION: Pneumonia, respiratory distress. HISTORY OF PRESENT ILLNESS: This is an 87-year-old white male with a history of COPD and chronic atrial fibrillation, hypertension and hyperlipidemia, who was admitted with shortness of breath that started last night. The patient, however, has been having some cough, chest congestion and wheezing for at least 4-5 days and was using his nebulizer with albuterol solution without much relief. He had coughed up a little bloody sputum yesterday and he called 911 since he was unable to catch his breath early this morning and thus was brought to the emergency room. The patient had a chest x-ray, which showed pneumonia in the right lung field. He was started on IV Rocephin and Zithromax and now on O2 at 3 liters. He is feeling better already, but still coughing up some mucus, but denies any fevers or chills. About 3 days ago, he was feeling sweaty and had some chest tightness. PAST MEDICAL HISTORY: 1. History of COPD with exacerbations. 2. History of permanent pacemaker placement. 3. History of chronic atrial fibrillation. 4. History of prostatic hypertrophy. 5. History of hypertension and hyperlipidemia. PAST SURGICAL HISTORY: Intracranial hemorrhage and dizziness. HABITS: The patient was a prior smoker, 1 pack per day for over 30 years. Alcohol use, moderate. FAMILY HISTORY: Essentially noncontributory. MEDICATIONS: 1. Nebulized albuterol solution q.i.d. 2. Clonidine 0.2 mg at bedtime. 3. Aspirin 1 daily. 4. Protonix 40 mg a day. 5. Tamsulosin 0.4 mg at bedtime. 6. Verapamil 240 mg daily. 7. Metoprolol 50 mg b.i.d. REVIEW OF SYSTEMS: The patient has dizziness, has cough and wheezing. Denies urinary symptoms. Has some joint pains to the extremities and skin lesions. No depression or anxiety and the rest of the system review is negative. PHYSICAL EXAMINATION: GENERAL: This is an averagely built, elderly man who is pale and mildly dyspneic at rest. VITAL SIGNS: Blood pressure 110/60, pulse 72, respirations 20, temperature 97.8. HEENT: Head is normocephalic. Pupils were reactive and equal. Tongue is moist. Throat is clear. Nasal mucosa is injected. NECK: Supple, no bruits. There was mild venous distention. Trachea midline. No thyroid enlargement. CHEST: Distant breath sounds with expiratory wheezes bilaterally, prolonged expirations. There are a few crackles at the right base. CARDIOVASCULAR: Heart sounds are regular, S1 and S2. Heart sounds are irregular. S1 and S2 normal. No murmur. ABDOMEN: Soft, scaphoid, without masses. No organomegaly or tenderness. Bowel sounds are active. EXTREMITIES: Revealed no edema. Peripheral pulses are diminished. Reflexes 1+ with no gross motor deficits. Cranial nerves grossly intact. RECTAL: Deferred. SKIN: No lesions. ASSESSMENT AND PLAN: 1. Right lung pneumonia with hypoxemia. 2. 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 3. Atrial fibrillation. 4. Hypertension. PLAN: The patient has been placed on O2 at 2 liters and nebulized DuoNeb solution q.i.d. and p.r.n. We will continue with antibiotics including Rocephin 1 gram IV daily and Zithromax 500 mg daily. He will be placed on Symbicort 160/4.5 mcg 2 puffs twice a day and we will get a CT chest without contrast. Continue with subcutaneous heparin 5000 units b.i.d. Solu-Medrol taper down to 40 mg IV every 6 hours. I will follow the case with you, . Thank you for this consultation. Jewels Gan MD VJD/devang/kristen , 06:33 PM , 06:47 PM
--- NOTE | 2018-06-19 20:56 | ECG ---
Date Performed: 06/19/2018 Time Performed: 09:18:51 PTAGE: 87 years EKG: ELECTRONIC VENTRICULAR PACEMAKER ABNORMAL RHYTHM ECG NO PREVIOUS TRACING DOCTOR: Phuc Márquez Interpretating Date/Time 06/19/2018 20:54:06
[2018-06-19] MEDS ORDERED: PREDNISOLONE ACETATE 0.12% RIGHT EYE SCH (21:00)
[2018-06-19] MEDS: Brimonidine 0.2% Opth Drops 5 ML Bottle LEFT EYE SCH (21:24)
[2018-06-19] MEDS: Heparin - SQ 10,000 UNITS/ML Vial SQ SCH (21:24)
[2018-06-19] MEDS: Dorzolamide 2% Opth Drops 10 ML Bottle LEFT EYE SCH (21:24)
[2018-06-19] MEDS: Senna/Docusate Sodium 8.6/50 MG Tablet PO SCH (21:24)
[2018-06-19] MEDS: Latanoprost 0.005% Opth Drops 2.5 ML Bottle LEFT EYE SCH (21:24)
--- NOTE | 2018-06-19 22:06 | CT ---
EXAM DATE: 06/19/2018 9:58 PM EST AGE/SEX: 87 years / Male INDICATIONS: Hemoptysis. Cough. Wheezing. Right infiltrates. CLINICAL DATA: This is the patient's initial encounter. Patient reports that signs and symptoms have been present for 1 day and indicates a pain score of 0/10. MEDICAL/SURGICAL HISTORY: Chronic obstructive pulmonary disease. Hypertension. Pacemaker. RADIATION DOSE: 18.55 CTDI (mGy) COMPARISON: [facility], CT THORAX W/O CONTRAST, 10/12/2017. [facility], CHEST 1V SINGLE AP, 06/19/2018. . TECHNIQUE: Multiple contiguous axial images were obtained through the chest without contrast. Image s were obtained in suspended respiration using multiple row detector helical technique. Using automa janet exposure control and adjustment of the mA and/or kV according to patient size, radiation dose was kept as low as reasonably achievable to obtain optimal diagnostic quality images. DICOM format imag e data is available electronically for review and comparison. FINDINGS: Severe centrilobular emphysema again noted within upper lobe predominance. Patchy parenchymal consoli dation present in both lower lobes and also in the right upper lobe. There is a small right pleural e ffusion, slightly larger than before. Previously seen left pleural effusion has resolved. No mediastinal, hilar or axillary lymphadenopathy demonstrated. There is panchamber enlargement of the heart. Coronary artery calcification present. There is a cardi ac pacer. Upper abdomen only partly included on the study. Marked gallbladder wall thickening apparent. CONCLUSION: 1. Mild bibasilar consolidation has developed. There is also acute pneumonia in the right upper lobe , mostly the anterior segment. 2. Small right pleural effusion. 3. Severe emphysema. 4. Panchamber enlargement of the heart. 5. Marked gallbladder wall thickening seen on the lower most axial image, nonspecific. Electronically signed by: Titus Gutierrez MD 06/19/2018 10:04 PM EST
[2018-06-20 05:17] LABS: Baso % (Auto) 0.2 % (0.0-2.0); Eos % (Auto) 0.1 % (0.0-4.0); Hemoglobin 12.9 gm/dL (13.0-17.0); Lymph # (Auto) 0.3 th/mm3 (1.0-4.8); Lymph % (Auto) 4.1 % (9.0-44.0); Mean Corpuscular HGB Conc 33.8 % (32.0-36.0); Mean Corpuscular Hemoglobin 35.7 pg (27.0-34.0); Mean Corpuscular Volume 105.5 fL (80.0-100.0); Mean Platelet Volume 7.2 fL (7.0-11.0); Mono # (Auto) 0.3 th/mm3 (0.0-0.9); Mono % (Auto) 4.9 % (0.0-8.0); Neut # (Auto) 5.8 th/mm3 (1.8-7.7); Neut % (Auto) 90.7 % (16.0-70.0); Platelet Count 173 th/mm3 (150-450); Red Cell Distribution Width 12.2 % (11.6-17.2); White Blood Count 6.4 th/mm3 (4.0-11.0)
[2018-06-20 05:30] LABS: Chloride 103 meq/L (98-107); Potassium 3.9 meq/L (3.5-5.1); Sodium 137 meq/L (136-145)
[2018-06-20 05:36] LABS: Albumin 2.8 g/dL (3.4-5.0); Anion Gap 10 meq/L (5-15); Blood Urea Nitrogen 37 mg/dL (7-18); Calcium 7.8 mg/dL (8.5-10.1); Carbon Dioxide 23.8 meq/L (21.0-32.0); Glucose,Random 209 mg/dL (74-106)
[2018-06-20 05:39] LABS: Alanine Aminotransferase 20 U/L (12-78); Aspartate Aminotransferase 14 U/L (15-37); Glomerular Filtration Rate 48 mL/min (>89)
[2018-06-20 05:41] LABS: Total Protein 6.4 g/dL (6.4-8.2)
[2018-06-20 05:42] LABS: Alkaline Phosphatase 76 U/L (45-117)
[2018-06-20] MEDS: MethylPREDNISolone Sod Succinate Inj 40 MG/ML Vial IV.PUSH SCH ×4 (06:23→20:29)
[2018-06-20] MEDS ORDERED: Verapamil SR 240 MG Tablet PO SCH (09:00)
[2018-06-20] MEDS: Dorzolamide 2% Opth Drops 10 ML Bottle LEFT EYE SCH ×2 (09:02→20:42)
[2018-06-20] MEDS: Brimonidine 0.2% Opth Drops 5 ML Bottle LEFT EYE SCH ×2 (09:02→20:42)
[2018-06-20] MEDS: Senna/Docusate Sodium 8.6/50 MG Tablet PO SCH ×2 (09:03→20:36)
[2018-06-20] MEDS: Loratadine 10 MG Tablet PO SCH (09:03)
[2018-06-20] MEDS: Multivitamin/Minerals Therapeutic Tablet PO SCH (09:03)
[2018-06-20] MEDS: Heparin - SQ 10,000 UNITS/ML Vial SQ SCH ×2 (09:03→20:32)
[2018-06-20] MEDS: Folic Acid 1 MG Tablet PO SCH (09:03)
[2018-06-20] MEDS: Aspirin 325 MG Tablet PO SCH (09:03)
[2018-06-20] MEDS: Sod Chloride 0.9% Inj 1,000 ML IV.CONT SCH (09:04)
[2018-06-20] MEDS: Verapamil SR 240 MG Tablet PO SCH (09:05)
--- NOTE | 2018-06-20 11:22 | P.PN ---
Subjective Interval history: Feels better. has some cough and wheezing. Sputum is clearing. CT chest noted Physical Exam Vital signs: Vital Signs 06/19/18 11:25 06/19/18 12:40 06/19/18 12:41 Temperature 97.9 F Pulse Rate 75 74 Respiratory Rate 22 23 Blood Pressure 98/54 L 113/59 L Pulse Oximetry 92 L 95 06/19/18 13:00 06/19/18 13:16 06/19/18 14:00 Temperature Pulse Rate 70 70 68 Respiratory Rate 24 23 32 H Blood Pressure 104/55 L Pulse Oximetry 95 95 06/19/18 15:00 06/19/18 16:00 06/19/18 16:26 Temperature Pulse Rate 68 72 72 Respiratory Rate 28 H 24 16 Blood Pressure Pulse Oximetry 95 96 06/19/18 20:00 06/19/18 20:50 06/20/18 00:00 Temperature 97.7 F 97.6 F Pulse Rate 70 74 68 Respiratory Rate 34 H 24 23 Blood Pressure 114/63 115/63 Pulse Oximetry 90 L 97 93 L 06/20/18 04:00 06/20/18 05:00 06/20/18 05:02 Temperature 97.5 F L Pulse Rate 68 68 68 Respiratory Rate 31 H 15 25 H Blood Pressure 118/58 L 118/58 L Pulse Oximetry 94 L 91 L 91 L 06/20/18 06:00 06/20/18 07:00 06/20/18 07:19 Temperature Pulse Rate 80 72 72 Respiratory Rate 24 20 22 Blood Pressure Pulse Oximetry 93 L 96 97 06/20/18 08:00 06/20/18 09:00 06/20/18 10:56 Temperature Pulse Rate 68 68 70 Respiratory Rate 34 H 25 H 18 Blood Pressure Pulse Oximetry 96 92 L 94 L Intake & Output 06/19/18 06/20/18 06/20/18 18:59 06:59 18:59 Intake Total 2810 / 2810 1000 / 1000 Output Total 200 / 200 750 / 750 Balance 2610 / 2610 -750 / -750 1000 / 1000 Weight 80.4 kg 85.1 kg Intake: IV 2350 / 2350 1000 / 1000 NS Inj 1,000 ML @ 50 mls/hr IV. 1000 / 1000 CONT .Q20H SHARI Rx#:[id number] Azithromycin Inj 500 MG In NS 250 / 250 Inj 250 ML @ 250 mls/hr IV.SIG ONCE ONE Rx#:[id number] NS Inj 1,000 ML @ 2000 mls/hr 1999 / 1999 IV.SIG Q30M SHARI Rx#:[id number] Rocephin Inj 1,000 MG In NS Inj 100 / 100 100 ML @ 200 mls/hr IV.SIG ONCE ONE Rx#:[id number] Oral 360 / 360 Other 100 / 100 Output: Urine 200 / 200 750 / 750 Other: Date of Last Bowel Movement 06/18/18 06/18/18 Weight On Admission 80.4 kg Narrative: GENERAL: Well-developed, well-nourished elderly W/m in NAD.on nasal cannula SKIN: Warm and dry. HEAD: Atraumatic. Normocephalic. EYES: Pupils equal and round. No scleral icterus. No injection or drainage. ENT: No nasal bleeding or discharge. Mucous membranes pink and moist. NECK: Trachea midline. No JVD. CARDIOVASCULAR: Regular rate and rhythm. RESPIRATORY: No accessory muscle use. Decreased breath sounds right lung with mild expiratory wheezes GASTROINTESTINAL: Abdomen soft, non-tender, nondistended. MUSCULOSKELETAL: Extremities without clubbing, cyanosis, or edema. No obvious deformities. NEUROLOGICAL: Awake and alert. No obvious cranial nerve deficits. Motor grossly within normal limits. Normal speech. PSYCHIATRIC: Appropriate mood and affect. Results - Labs CBC & Chem 7: 06/20/18 04:51 06/20/18 04:51 Laboratory Results - last 24 hr 06/19/18 06/19/18 06/20/18 12:19 13:59 04:51 CBC w Diff Auto diff final WBC 6.4 RBC 3.60 L Hgb 12.9 L Hct 38.0 L MCV 105.5 H MCH 35.7 H MCHC 33.8 RDW 12.2 Plt Count 173 MPV 7.2 Neut % (Auto) 90.7 H Lymph % (Auto) 4.1 L [place] % (Auto) 4.9 Eos % (Auto) 0.1 Baso % (Auto) 0.2 Neut # (Auto) 5.8 Lymph # (Auto) 0.3 L [place] # (Auto) 0.3 Eos # (Auto) 0.0 Baso # (Auto) 0.0 WBC Differential . Differential Comment . Sodium Potassium Chloride Carbon Dioxide Anion Gap BUN Creatinine Estimated GFR Random Glucose Lactic Acid 1.4 Calcium Total Bilirubin AST ALT Alkaline Phosphatase Total Protein Albumin Ur Collection Type Clean catch Urine Color Yellow Urine Clarity Clear Urine pH 6.0 Ur Specific [place] 1.025 Urine Protein 30 H Urine Glucose (UA) 100 H Urine Ketones Trace H Urine Occult Blood Negative Urine Nitrate Negative Urine Bilirubin Negative Urine Ictotest Negative Urine Urobilinogen 4.0 H Ur Leukocyte Esterase Negative Ur Microscopic Review Microscopic reviewed Urine Culture Comments Culture not ind Urine Collection Time 1353 06/20/18 04:51 CBC w Diff WBC RBC Hgb Hct MCV MCH MCHC RDW Plt Count MPV Neut % (Auto) Lymph % (Auto) [place] % (Auto) Eos % (Auto) Baso % (Auto) Neut # (Auto) Lymph # (Auto) [place] # (Auto) Eos # (Auto) Baso # (Auto) WBC Differential Differential Comment Sodium 137 Potassium 3.9 Chloride 103 Carbon Dioxide 23.8 Anion Gap 10 BUN 37 H Creatinine 1.40 H Estimated GFR 48 L Random Glucose 209 H Lactic Acid Calcium 7.8 L Total Bilirubin 0.9 AST 14 L ALT 20 Alkaline Phosphatase 76 Total Protein 6.4 Albumin 2.8 L Ur Collection Type Urine Color Urine Clarity Urine pH Ur Specific [place] Urine Protein Urine Glucose (UA) Urine Ketones Urine Occult Blood Urine Nitrate Urine Bilirubin Urine Ictotest Urine Urobilinogen Ur Leukocyte Esterase Ur Microscopic Review Urine Culture Comments Urine Collection Time Microbiology 06/19/18 09:00 Blood - Peripheral Aerobic Blood Culture - Preliminary No growth in 1 day 06/19/18 09:00 Blood - Peripheral Anaerobic Blood Culture - Preliminary No growth in 1 day 06/19/18 09:10 Blood - Peripheral Aerobic Blood Culture - Preliminary No growth in 1 day 06/19/18 09:10 Blood - Peripheral Anaerobic Blood Culture - Preliminary No growth in 1 day 06/19/18 13:59 Urine - Clean Catch Urine Streptococcus pneumoniae Antigen ( M - Final Presumptive negative for streptococcus pneumoniae antigen, suggesting no current or recent infection. Infection due to Streptococcus pneumoniae cannot be ruled out since the antigen present in the sample may be below the detection limit of the test. 06/19/18 13:59 Urine - Clean Catch Urine Legionella Antigen - Final Presumptive negative for Legionella pneumophila serogroup 1 antigen in urine, suggesting no recent or recurrent infection. Infection due to Legionella cannot be ruled out since other serogroups and species may cause disease, antigen may not be present in urine in early infection, and the level of antigen present in the urine may be below the detection limit of the test. 06/19/18 09:20 Nasal Wash Influenza Types A,B Antigen - Final Negative for FLU A and B antigen Infection due to influenza A or B cannot be ruled out since the antigen present in the sample may be below the detection limit of the test. - Imaging Impressions Chest CT 06/19/18 00:00 CONCLUSION: 1. Mild bibasilar consolidation has developed. There is also acute pneumonia in the right upper lobe, mostly the anterior segment. 2. Small right pleural effusion. 3. Severe emphysema. 4. Panchamber enlargement of the heart. 5. Marked gallbladder wall thickening seen on the lower most axial image, nonspecific. Assessment and Plan - Assessment (1) Hypoxia Code(s): R09.02 - Hypoxemia Status: Acute (2) Pneumonia Code(s): J18.9 - Pneumonia, unspecified organism Status: Acute (3) Hypokalemia Code(s): E87.6 - Hypokalemia Status: Acute (4) COPD exacerbation Code(s): J44.1 - Chronic obstructive pulmonary disease with (acute) exacerbation Status: Acute (5) Pacemaker Code(s): Z95.0 - Presence of cardiac pacemaker Status: Acute (6) History of cardiac pacemaker Code(s): Z95.0 - Presence of cardiac pacemaker Status: Acute - Plan 1. Cont antibiotic Rocephin 1 G IV daily 2. O2 2 L N/C 3. Duoneb nebs qid. 4. Symbicort 160/4.5 mcg , 2 puffs BID 5. Cont Solumedrol 40 mg IV Q6H 6. CBC and BMP.Sputum culture. (2) Pneumonia Qualifiers: Pneumonia type: due to unspecified organism Laterality: right Lung location : middle lobe of lung Qualified Code(s): J18.1 - Lobar pneumonia, unspecified organism
[2018-06-20] MEDS: Azithromycin Inj 500 MG in Sodium Chlor 0.9% Inj 250 ML IV.SIG SCH (12:00)
--- NOTE | 2018-06-20 16:33 | P.PNIM ---
Subjective Interval history: 87-year-old male who is seen and examined today for COPD, pneumonia. Patient laying in bed comfortable. Still requiring oxygen to maintain O2 saturations. Patient states that still having significant shortness of breath. Vital signs are stable. Patient remains afebrile. Physical Exam Vital signs: Vital Signs 06/19/18 16:26 06/19/18 20:00 06/19/18 20:50 Temperature 97.7 F Pulse Rate 72 70 74 Respiratory Rate 16 34 H 24 Blood Pressure 114/63 Pulse Oximetry 90 L 97 06/20/18 00:00 06/20/18 04:00 06/20/18 05:00 Temperature 97.6 F 97.5 F L Pulse Rate 68 68 68 Respiratory Rate 23 31 H 15 Blood Pressure 115/63 118/58 L Pulse Oximetry 93 L 94 L 91 L 06/20/18 05:02 06/20/18 06:00 06/20/18 07:00 Temperature Pulse Rate 68 80 72 Respiratory Rate 25 H 24 20 Blood Pressure 118/58 L Pulse Oximetry 91 L 93 L 96 06/20/18 07:19 06/20/18 08:00 06/20/18 09:00 Temperature Pulse Rate 72 68 68 Respiratory Rate 22 34 H 25 H Blood Pressure Pulse Oximetry 97 96 92 L 06/20/18 10:00 06/20/18 10:56 06/20/18 11:00 Temperature Pulse Rate 68 70 68 Respiratory Rate 22 18 18 Blood Pressure Pulse Oximetry 92 L 94 L 94 L 06/20/18 12:00 06/20/18 13:00 06/20/18 14:00 Temperature Pulse Rate 72 70 68 Respiratory Rate 19 21 21 Blood Pressure Pulse Oximetry 95 91 L 93 L 06/20/18 15:27 Temperature Pulse Rate 84 Respiratory Rate 22 Blood Pressure Pulse Oximetry Intake & Output 06/19/18 06/20/18 06/20/18 18:59 06:59 18:59 Intake Total 2810 / 2810 1000 / 1000 Output Total 200 / 200 750 / 750 Balance 2610 / 2610 -750 / -750 1000 / 1000 Weight 80.4 kg 85.1 kg Intake: IV 2350 / 2350 1000 / 1000 NS Inj 1,000 ML @ 50 mls/hr IV. 1000 / 1000 CONT .Q20H SHARI Rx#:[id number] Azithromycin Inj 500 MG In NS 250 / 250 Inj 250 ML @ 250 mls/hr IV.SIG ONCE ONE Rx#:[id number] NS Inj 1,000 ML @ 2000 mls/hr 1999 / 1999 IV.SIG Q30M SHARI Rx#:[id number] Rocephin Inj 1,000 MG In NS Inj 100 / 100 100 ML @ 200 mls/hr IV.SIG ONCE ONE Rx#:[id number] Oral 360 / 360 Other 100 / 100 Output: Urine 200 / 200 750 / 750 Other: Date of Last Bowel Movement 06/18/18 06/18/18 Weight On Admission 80.4 kg Narrative: GENERAL: Well-developed, well-nourished, in no acute distress. alert and orientated HEENT: Head is normocephalic without any lesions or masses noted. Facial features are symmetric. Eyes: Extraocular muscles are intact. Conjunctivae were clear. NECK: Supple without any masses. Trachea midline no deviation. No JVD, CARDIAC: Regular rhythm, regular rate. S1/S2 are heard. No murmurs gallops or rubs. LUNGS: Diminished breath sounds noted bilaterally. No wheeze, rhonchi or rales. No use of accessory muscles on inspiration or expiration. ABDOMEN: Soft, nontender. Nondistended. Bowel sounds heard in all 4 quadrants. No organomegaly or masses. Negative rebound, negative guarding EXTREMITIES: No edema, pulses are equal bilaterally. No cyanosis or clubbing NEUROLOGY: Mood and affect appear appropriate. Cranial nerves II through XII grossly intact. Moving all extremities, speech is clear Results - Labs CBC & Chem 7: 06/20/18 04:51 06/20/18 04:51 Laboratory Results - last 24 hr 06/20/18 06/20/18 04:51 04:51 CBC w Diff Auto diff final WBC 6.4 RBC 3.60 L Hgb 12.9 L Hct 38.0 L MCV 105.5 H MCH 35.7 H MCHC 33.8 RDW 12.2 Plt Count 173 MPV 7.2 Neut % (Auto) 90.7 H Lymph % (Auto) 4.1 L [place] % (Auto) 4.9 Eos % (Auto) 0.1 Baso % (Auto) 0.2 Neut # (Auto) 5.8 Lymph # (Auto) 0.3 L [place] # (Auto) 0.3 Eos # (Auto) 0.0 Baso # (Auto) 0.0 WBC Differential . Differential Comment . Sodium 137 Potassium 3.9 Chloride 103 Carbon Dioxide 23.8 Anion Gap 10 BUN 37 H Creatinine 1.40 H Estimated GFR 48 L Random Glucose 209 H Calcium 7.8 L Total Bilirubin 0.9 AST 14 L ALT 20 Alkaline Phosphatase 76 Total Protein 6.4 Albumin 2.8 L Microbiology 06/19/18 09:00 Blood - Peripheral Aerobic Blood Culture - Preliminary No growth in 1 day 06/19/18 09:00 Blood - Peripheral Anaerobic Blood Culture - Preliminary No growth in 1 day 06/19/18 09:10 Blood - Peripheral Aerobic Blood Culture - Preliminary No growth in 1 day 06/19/18 09:10 Blood - Peripheral Anaerobic Blood Culture - Preliminary No growth in 1 day 06/19/18 13:59 Urine - Clean Catch Urine Streptococcus pneumoniae Antigen ( M - Final Presumptive negative for streptococcus pneumoniae antigen, suggesting no current or recent infection. Infection due to Streptococcus pneumoniae cannot be ruled out since the antigen present in the sample may be below the detection limit of the test. 06/19/18 13:59 Urine - Clean Catch Urine Legionella Antigen - Final Presumptive negative for Legionella pneumophila serogroup 1 antigen in urine, suggesting no recent or recurrent infection. Infection due to Legionella cannot be ruled out since other serogroups and species may cause disease, antigen may not be present in urine in early infection, and the level of antigen present in the urine may be below the detection limit of the test. - Imaging Impressions Chest CT 06/19/18 00:00 CONCLUSION: 1. Mild bibasilar consolidation has developed. There is also acute pneumonia in the right upper lobe, mostly the anterior segment. 2. Small right pleural effusion. 3. Severe emphysema. 4. Panchamber enlargement of the heart. 5. Marked gallbladder wall thickening seen on the lower most axial image, nonspecific. Assessment and Plan - Plan Acute hypoxic respiratory failure -Multifactorial with patient having possible COPD exacerbation and community acquired pneumonia -Patient continued on antibiotics for community acquired pneumonia to include Rocephin, Zithromax -Continue O2 sat mentation maintain O2 sat greater than 92% -Continue duo nebs every 6 hours while awake and every 2 hours as needed -Continue Solu-Medrol 40 mg IV every 6 hours -Continue monitor sputum culture -Influenza testing was negative, streptococcal testing and Legionella testing was negative -Regional Wildlife Agent is following the patient Acute renal failure superimposed on chronic kidney disease stage III -Renal functions are improving on a daily basis -Continue monitor renal function -Avoid nephrotoxins Hyperbilirubinemia, resolved -Follow-up labs shows resolution Alcohol abuse -CIWA scores have all remained 0 -CIWA protocol -Cessation counseling was provided DVT prevention -Subcutaneous heparin -Sequential compression devices
[2018-06-20] MEDS: Latanoprost 0.005% Opth Drops 2.5 ML Bottle LEFT EYE SCH (20:36)
[2018-06-21] MEDS: MethylPREDNISolone Sod Succinate Inj 40 MG/ML Vial IV.PUSH SCH ×4 (00:21→18:07)
[2018-06-21 04:53] LABS: Baso % (Auto) 0.1 % (0.0-2.0); Hematocrit 36.9 % (39.0-51.0); Hemoglobin 12.7 gm/dL (13.0-17.0); Lymph # (Auto) 0.3 th/mm3 (1.0-4.8); Lymph % (Auto) 4.5 % (9.0-44.0); Mean Corpuscular HGB Conc 34.5 % (32.0-36.0); Mean Corpuscular Hemoglobin 36.1 pg (27.0-34.0); Mean Corpuscular Volume 104.6 fL (80.0-100.0); Mean Platelet Volume 7.6 fL (7.0-11.0); Mono # (Auto) 0.3 th/mm3 (0.0-0.9); Mono % (Auto) 4.6 % (0.0-8.0); Neut # (Auto) 5.5 th/mm3 (1.8-7.7); Neut % (Auto) 90.8 % (16.0-70.0); Platelet Count 183 th/mm3 (150-450); Red Blood Count 3.52 mil/mm3 (4.50-5.90); Red Cell Distribution Width 12.5 % (11.6-17.2); White Blood Count 6.1 th/mm3 (4.0-11.0)
[2018-06-21 05:04] LABS: Potassium 4.1 meq/L (3.5-5.1)
[2018-06-21 05:08] LABS: Calcium 7.7 mg/dL (8.5-10.1)
[2018-06-21 05:29] LABS: Bilirubin,Urine Negative (Negative); Clarity,Urine Clear (Clear); Glucose,Urine (UA) Negative (Negative); Leukocyte Esterase,Urine Negative (Negative); Nitrite,Urine Negative (Negative)
[2018-06-21 05:37] LABS: Color,Urine Amber (Yellw/Straw)
[2018-06-21 05:39] LABS: WBC,Urine 0-5 /hpf (0-5)
[2018-06-21 05:40] LABS: Squamous Epithelial Cell,Urine 0-5 /hpf (0-5)
[2018-06-21] MEDS: Sod Chloride 0.9% Inj 1,000 ML IV.CONT SCH ×2 (06:21→22:43)
[2018-06-21] MEDS: Heparin - SQ 10,000 UNITS/ML Vial SQ SCH ×2 (09:48→20:19)
[2018-06-21] MEDS: Aspirin 325 MG Tablet PO SCH (09:48)
[2018-06-21] MEDS: Brimonidine 0.2% Opth Drops 5 ML Bottle LEFT EYE SCH ×2 (09:49→20:19)
[2018-06-21] MEDS: Multivitamin/Minerals Therapeutic Tablet PO SCH (09:49)
[2018-06-21] MEDS: Loratadine 10 MG Tablet PO SCH (09:49)
[2018-06-21] MEDS: Folic Acid 1 MG Tablet PO SCH (09:49)
[2018-06-21] MEDS: Dorzolamide 2% Opth Drops 10 ML Bottle LEFT EYE SCH ×2 (09:49→20:19)
[2018-06-21] MEDS: Senna/Docusate Sodium 8.6/50 MG Tablet PO SCH ×2 (09:50→20:18)
[2018-06-21] MEDS: Verapamil SR 240 MG Tablet PO SCH (09:50)
[2018-06-21] MEDS: Azithromycin Inj 500 MG in Sodium Chlor 0.9% Inj 250 ML IV.SIG SCH (13:42)
--- NOTE | 2018-06-21 14:29 | P.PNIM ---
Subjective Interval history: 87-year-old male who is seen and examined in follow-up for COPD, pneumonia. Patient still requiring oxygen at 2 L to maintain O2 saturations. Vital signs are stable, patient remains afebrile. Physical Exam Vital signs: Vital Signs 06/20/18 15:00 06/20/18 15:27 06/20/18 16:00 Temperature Pulse Rate 70 84 72 Respiratory Rate 20 22 22 Blood Pressure Pulse Oximetry 92 L 94 L 06/20/18 17:00 06/20/18 18:00 06/20/18 19:30 Temperature Pulse Rate 68 72 72 Respiratory Rate 22 23 23 Blood Pressure Pulse Oximetry 92 L 91 L 93 L 06/20/18 19:32 06/20/18 20:00 06/20/18 23:29 Temperature 97.5 F L 97.8 F Pulse Rate 73 69 77 Respiratory Rate 16 16 Blood Pressure 125/74 133/79 Pulse Oximetry 93 L 92 L 93 L 06/21/18 00:00 06/21/18 01:59 06/21/18 03:27 Temperature 97.8 F 97.7 F Pulse Rate 77 74 69 Respiratory Rate 18 23 16 Blood Pressure 133/79 131/69 Pulse Oximetry 93 L 93 L 06/21/18 04:00 06/21/18 08:00 06/21/18 12:00 Temperature 97.7 F 97.4 F L 97.4 F L Pulse Rate 69 72 71 Respiratory Rate 18 26 H 22 Blood Pressure 131/69 144/76 H 140/74 Pulse Oximetry 93 L 93 L 92 L Intake & Output 06/20/18 06/21/18 06/21/18 18:59 06:59 18:59 Intake Total 1900 / 1900 950 / 950 Output Total 450 / 450 900 / 900 100 / 100 Balance 1450 / 1450 50 / 50 -100 / -100 Weight 87 kg Intake: IV 1350 / 1350 950 / 950 NS Inj 1,000 ML @ 50 mls/hr IV. 1000 / 1000 950 / 950 CONT .Q20H SHARI Rx#:[id number] Azithromycin Inj 500 MG In NS 250 / 250 Inj 250 ML @ 250 mls/hr IV.SIG Q24H SHARI Rx#:[id number] Rocephin Inj 1,000 MG In NS Inj 100 / 100 100 ML @ 200 mls/hr IV.SIG Q24H SHARI Rx#:[id number] Oral 550 / 550 Output: Urine 450 / 450 900 / 900 100 / 100 Other: Date of Last Bowel Movement 06/18/18 Narrative: GENERAL: Well-developed, well-nourished, in no acute distress. alert and orientated HEENT: Head is normocephalic without any lesions or masses noted. Facial features are symmetric. Eyes: Extraocular muscles are intact. Conjunctivae were clear. NECK: Supple without any masses. Trachea midline no deviation. No JVD, CARDIAC: Regular rhythm, regular rate. S1/S2 are heard. No murmurs gallops or rubs. LUNGS: Diminished breath sounds noted bilaterally. No wheeze, rhonchi or rales. No use of accessory muscles on inspiration or expiration. ABDOMEN: Soft, nontender. Nondistended. Bowel sounds heard in all 4 quadrants. No organomegaly or masses. Negative rebound, negative guarding EXTREMITIES: No edema, pulses are equal bilaterally. No cyanosis or clubbing NEUROLOGY: Mood and affect appear appropriate. Cranial nerves II through XII grossly intact. Moving all extremities, speech is clear Results - Labs CBC & Chem 7: 06/21/18 04:27 06/21/18 04:27 Laboratory Results - last 24 hr 06/21/18 06/21/18 06/21/18 04:27 04:27 05:22 CBC w Diff Auto diff final WBC 6.1 RBC 3.52 L Hgb 12.7 L Hct 36.9 L MCV 104.6 H MCH 36.1 H MCHC 34.5 RDW 12.5 Plt Count 183 MPV 7.6 Neut % (Auto) 90.8 H Lymph % (Auto) 4.5 L [place] % (Auto) 4.6 Eos % (Auto) 0.0 Baso % (Auto) 0.1 Neut # (Auto) 5.5 Lymph # (Auto) 0.3 L [place] # (Auto) 0.3 Eos # (Auto) 0.0 Baso # (Auto) 0.0 WBC Differential . Differential Comment . Sodium 136 Potassium 4.1 Chloride 103 Carbon Dioxide 22.0 Anion Gap 11 BUN 44 H Creatinine 1.40 H Estimated GFR 48 L Random Glucose 199 H Calcium 7.7 L Urine Color [place] H Urine Clarity Clear Urine pH 6.0 Ur Specific [place] 1.020 Urine Protein Trace Urine Glucose (UA) Negative Urine Ketones Negative Urine Occult Blood Large H Urine Nitrate Negative Urine Bilirubin Negative Urine Urobilinogen 1.0 Ur Leukocyte Esterase Negative Urine RBC 15-50 H Urine WBC 0-5 Ur Squamous Epith Cells 0-5 Micro UA Comment Culture not ind Ur Microscopic Review Microscopic reviewed Urine Culture Comments Culture not ind Microbiology 06/20/18 10:00 Sputum - Expectorated Sputum Gram Stain - Final 06/20/18 10:00 Sputum - Expectorated Sputum Sputum Culture - Preliminary Heavy growth normal respiratory brent at 24 hours 06/19/18 09:00 Blood - Peripheral Aerobic Blood Culture - Preliminary No growth in 2 days 06/19/18 09:00 Blood - Peripheral Anaerobic Blood Culture - Preliminary No growth in 2 days 06/19/18 09:10 Blood - Peripheral Aerobic Blood Culture - Preliminary No growth in 2 days 06/19/18 09:10 Blood - Peripheral Anaerobic Blood Culture - Preliminary No growth in 2 days Assessment and Plan - Plan Acute hypoxic respiratory failure -Multifactorial with patient having possible COPD exacerbation and community acquired pneumonia -Patient continued on antibiotics for community acquired pneumonia to include Rocephin, Zithromax -Continue O2 sat mentation maintain O2 sat greater than 92% -Continue duo nebs every 6 hours while awake and every 2 hours as needed -Continue Solu-Medrol 40 mg IV every 6 hours -Continue monitor sputum culture -Influenza testing was negative, streptococcal testing and Legionella testing was negative -Complex Care Nurse is following the patient Acute renal failure superimposed on chronic kidney disease stage III -Renal functions did improve to baseline -Continue monitor renal function -Avoid nephrotoxins Hyperbilirubinemia, resolved -Follow-up labs shows resolution Alcohol abuse -CIWA scores have all remained 0 -Discontinue CIWA protocol -Cessation counseling was provided DVT prevention -Subcutaneous heparin -Sequential compression devices
--- NOTE | 2018-06-21 18:37 | P.PN ---
Subjective Interval history: Had some hemoptysis . No fever. Sputum was showing normal brent. Has some wheezing still Physical Exam Vital signs: Vital Signs 06/20/18 19:30 06/20/18 19:32 06/20/18 20:00 Temperature 97.5 F L Pulse Rate 72 73 69 Respiratory Rate 23 16 Blood Pressure 125/74 Pulse Oximetry 93 L 93 L 92 L 06/20/18 23:29 06/21/18 00:00 06/21/18 01:59 Temperature 97.8 F 97.8 F Pulse Rate 77 77 74 Respiratory Rate 16 18 23 Blood Pressure 133/79 133/79 Pulse Oximetry 93 L 93 L 06/21/18 03:27 06/21/18 04:00 06/21/18 08:00 Temperature 97.7 F 97.7 F 97.4 F L Pulse Rate 69 69 72 Respiratory Rate 16 18 26 H Blood Pressure 131/69 131/69 144/76 H Pulse Oximetry 93 L 93 L 93 L 06/21/18 12:00 06/21/18 15:04 06/21/18 15:06 Temperature 97.4 F L Pulse Rate 71 71 Respiratory Rate 22 26 H Blood Pressure 140/74 Pulse Oximetry 92 L 94 L 06/21/18 16:00 06/21/18 17:06 Temperature 97.3 F L Pulse Rate 69 77 Respiratory Rate 20 26 H Blood Pressure 107/60 Pulse Oximetry 90 L Intake & Output 06/20/18 06/21/18 06/21/18 18:59 06:59 18:59 Intake Total 1900 / 1900 950 / 950 350 / 350 Output Total 450 / 450 900 / 900 380 / 380 Balance 1450 / 1450 50 / 50 -30 / -30 Weight 87 kg Intake: IV 1350 / 1350 950 / 950 350 / 350 NS Inj 1,000 ML @ 50 mls/hr IV. 1000 / 1000 950 / 950 CONT .Q20H SHARI Rx#:[id number] Azithromycin Inj 500 MG In NS 250 / 250 250 / 250 Inj 250 ML @ 250 mls/hr IV.SIG Q24H SHARI Rx#:[id number] Rocephin Inj 1,000 MG In NS Inj 100 / 100 100 / 100 100 ML @ 200 mls/hr IV.SIG Q24H SHARI Rx#:[id number] Oral 550 / 550 Output: Urine 450 / 450 900 / 900 380 / 380 Other: Date of Last Bowel Movement 06/18/18 06/17/18 Narrative: GENERAL: Well-developed, well-nourished, in no acute distress. alert. HEENT: Head is normocephalic without any lesions or masses noted. Facial features are symmetric. Eyes: Extraocular muscles are intact. Conjunctivae were clear. NECK: Supple without any masses. Trachea midline no deviation. No JVD, CARDIAC: Regular rhythm, regular rate. S1/S2 are heard. No murmurs gallops or rubs. LUNGS: Diminished breath sounds noted bilaterally. Occ wheeze, no rhonchi or rales. ABDOMEN: Soft, nontender. Nondistended. Bowel sounds heard in all 4 quadrants. No organomegaly or masses. Negative rebound, negative guarding EXTREMITIES: No edema, pulses are equal bilaterally. No cyanosis or clubbing NEUROLOGY: Mood and affect appear appropriate. Cranial nerves II through XII grossly intact. Moving all extremities, speech is clear Results - Labs CBC & Chem 7: 06/21/18 04:27 06/21/18 04:27 Laboratory Results - last 24 hr 06/21/18 06/21/18 06/21/18 04:27 04:27 05:22 CBC w Diff Auto diff final WBC 6.1 RBC 3.52 L Hgb 12.7 L Hct 36.9 L MCV 104.6 H MCH 36.1 H MCHC 34.5 RDW 12.5 Plt Count 183 MPV 7.6 Neut % (Auto) 90.8 H Lymph % (Auto) 4.5 L [place] % (Auto) 4.6 Eos % (Auto) 0.0 Baso % (Auto) 0.1 Neut # (Auto) 5.5 Lymph # (Auto) 0.3 L [place] # (Auto) 0.3 Eos # (Auto) 0.0 Baso # (Auto) 0.0 WBC Differential . Differential Comment . Sodium 136 Potassium 4.1 Chloride 103 Carbon Dioxide 22.0 Anion Gap 11 BUN 44 H Creatinine 1.40 H Estimated GFR 48 L Random Glucose 199 H Calcium 7.7 L Urine Color Ana H Urine Clarity Clear Urine pH 6.0 Ur Specific [place] 1.020 Urine Protein Trace Urine Glucose (UA) Negative Urine Ketones Negative Urine Occult Blood Large H Urine Nitrate Negative Urine Bilirubin Negative Urine Urobilinogen 1.0 Ur Leukocyte Esterase Negative Urine RBC 15-50 H Urine WBC 0-5 Ur Squamous Epith Cells 0-5 Micro UA Comment Culture not ind Ur Microscopic Review Microscopic reviewed Urine Culture Comments Culture not ind Microbiology 06/20/18 10:00 Sputum - Expectorated Sputum Gram Stain - Final 06/20/18 10:00 Sputum - Expectorated Sputum Sputum Culture - Preliminary Heavy growth normal respiratory brent at 24 hours 06/19/18 09:00 Blood - Peripheral Aerobic Blood Culture - Preliminary No growth in 2 days 06/19/18 09:00 Blood - Peripheral Anaerobic Blood Culture - Preliminary No growth in 2 days 06/19/18 09:10 Blood - Peripheral Aerobic Blood Culture - Preliminary No growth in 2 days 06/19/18 09:10 Blood - Peripheral Anaerobic Blood Culture - Preliminary No growth in 2 days Assessment and Plan - Assessment (1) Hypoxia Code(s): R09.02 - Hypoxemia Status: Acute (2) Pneumonia Code(s): J18.9 - Pneumonia, unspecified organism Status: Acute (3) Hypokalemia Code(s): E87.6 - Hypokalemia Status: Acute (4) COPD exacerbation Code(s): J44.1 - Chronic obstructive pulmonary disease with (acute) exacerbation Status: Acute (5) Pacemaker Code(s): Z95.0 - Presence of cardiac pacemaker Status: Acute (6) History of cardiac pacemaker Code(s): Z95.0 - Presence of cardiac pacemaker Status: Acute (7) Hemoptysis Code(s): R04.2 - Hemoptysis Status: Acute - Plan 1. Cont antibiotic Rocephin, Zithromax 2. O2 2 L N/C 3. Duoneb nebs qid. 4. Symbicort 160/4.5 mcg , 2 puffs BID 5. Solumedrol 40 mg IV Q6H 6. CBC and BMP.Sputum Cytology 7. will consider Bronchoscopy if hemoptysis persists (2) Pneumonia Qualifiers: Pneumonia type: due to unspecified organism Laterality: right Lung location : middle lobe of lung Qualified Code(s): J18.1 - Lobar pneumonia, unspecified organism
[2018-06-21] MEDS: Latanoprost 0.005% Opth Drops 2.5 ML Bottle LEFT EYE SCH (20:19)
[2018-06-22] MEDS: MethylPREDNISolone Sod Succinate Inj 40 MG/ML Vial IV.PUSH SCH ×5 (00:03→22:26)
[2018-06-22] MEDS ORDERED: Dextrose 50% in Water 50 ML Vial IV.PUSH PRN (09:24)
[2018-06-22] MEDS: Brimonidine 0.2% Opth Drops 5 ML Bottle LEFT EYE SCH ×2 (09:31→20:14)
[2018-06-22] MEDS: Aspirin 325 MG Tablet PO SCH (09:32)
[2018-06-22] MEDS: Folic Acid 1 MG Tablet PO SCH (09:32)
[2018-06-22] MEDS: Heparin - SQ 10,000 UNITS/ML Vial SQ SCH (09:32)
[2018-06-22] MEDS: Loratadine 10 MG Tablet PO SCH (09:32)
[2018-06-22] MEDS: Senna/Docusate Sodium 8.6/50 MG Tablet PO SCH ×2 (09:33→20:14)
[2018-06-22] MEDS: Multivitamin/Minerals Therapeutic Tablet PO SCH (09:33)
[2018-06-22] MEDS: Dorzolamide 2% Opth Drops 10 ML Bottle LEFT EYE SCH ×2 (09:33→20:14)
[2018-06-22] MEDS: Verapamil SR 240 MG Tablet PO SCH (09:33)
--- NOTE | 2018-06-22 10:08 | P.PNIM ---
Subjective Interval history: 87-year-old male who is seen and examined today for follow-up on acute hypoxic respiratory failure, pneumonia, COPD. Patient still requiring oxygen now at 3 L. Patient still having hemoptysis. Physical Exam Vital signs: Vital Signs 06/21/18 12:00 06/21/18 15:04 06/21/18 15:06 Temperature 97.4 F L Pulse Rate 68 71 Respiratory Rate 22 26 H Blood Pressure 140/74 Pulse Oximetry 92 L 94 L 06/21/18 16:00 06/21/18 17:06 06/21/18 20:00 Temperature 97.3 F L 98 F Pulse Rate 70 77 76 Respiratory Rate 20 26 H 16 Blood Pressure 107/60 119/67 Pulse Oximetry 90 L 92 L 06/21/18 21:25 06/22/18 00:00 06/22/18 04:00 Temperature 97.9 F 97.8 F Pulse Rate 78 76 68 Respiratory Rate 18 14 Blood Pressure 130/70 144/80 H Pulse Oximetry 92 L 95 06/22/18 04:49 06/22/18 07:45 Temperature Pulse Rate 75 73 Respiratory Rate 16 24 Blood Pressure Pulse Oximetry 93 L Intake & Output 06/21/18 06/22/18 06/22/18 18:59 06:59 18:59 Intake Total 1310 / 1310 690 / 690 Output Total 580 / 580 400 / 400 Balance 730 / 730 290 / 290 Weight 88.3 kg Intake: IV 350 / 350 450 / 450 NS Inj 1,000 ML @ 50 mls/hr IV. 450 / 450 CONT .Q20H SHARI Rx#:[id number] Azithromycin Inj 500 MG In NS 250 / 250 Inj 250 ML @ 250 mls/hr IV.SIG Q24H SHARI Rx#:[id number] Rocephin Inj 1,000 MG In NS Inj 100 / 100 100 ML @ 200 mls/hr IV.SIG Q24H SHARI Rx#:[id number] Oral 960 / 960 240 / 240 Output: Urine 580 / 580 400 / 400 Other: Date of Last Bowel Movement 06/17/18 Narrative: GENERAL: Well-developed, well-nourished, in no acute distress. alert and orientated HEENT: Head is normocephalic without any lesions or masses noted. Facial features are symmetric. Eyes: Extraocular muscles are intact. Conjunctivae were clear. NECK: Supple without any masses. Trachea midline no deviation. No JVD, CARDIAC: Regular rhythm, regular rate. S1/S2 are heard. No murmurs gallops or rubs. LUNGS: Diminished breath sounds noted bilaterally. No wheeze, rhonchi or rales. No use of accessory muscles on inspiration or expiration. ABDOMEN: Soft, nontender. Nondistended. Bowel sounds heard in all 4 quadrants. No organomegaly or masses. Negative rebound, negative guarding EXTREMITIES: No edema, pulses are equal bilaterally. No cyanosis or clubbing NEUROLOGY: Mood and affect appear appropriate. Cranial nerves II through XII grossly intact. Moving all extremities, speech is clear Results - Labs CBC & Chem 7: 06/21/18 04:27 06/21/18 04:27 Microbiology 06/20/18 10:00 Sputum - Expectorated Sputum Gram Stain - Final 06/20/18 10:00 Sputum - Expectorated Sputum Sputum Culture - Preliminary Heavy growth normal respiratory brent at 24 hours 06/19/18 09:00 Blood - Peripheral Aerobic Blood Culture - Preliminary No growth in 2 days 06/19/18 09:00 Blood - Peripheral Anaerobic Blood Culture - Preliminary No growth in 2 days 06/19/18 09:10 Blood - Peripheral Aerobic Blood Culture - Preliminary No growth in 2 days 06/19/18 09:10 Blood - Peripheral Anaerobic Blood Culture - Preliminary No growth in 2 days Assessment and Plan - Plan Acute hypoxic respiratory failure -Multifactorial with patient having possible COPD exacerbation and community acquired pneumonia, hemoptysis -CT of the chest showed mild bibasilar consolidation, acute pneumonia in the right upper lobe, severe emphysema. -Patient continued on antibiotics for community acquired pneumonia to include Rocephin, Zithromax -Continue O2 supplementation to maintain O2 sat greater than 92% -Continue duo nebs every 6 hours while awake and every 2 hours as needed -Continue Solu-Medrol 40 mg IV every 6 hours -Add EZ Pap -Influenza testing was negative, streptococcal testing and Legionella testing was negative, sputum cultures showed heavy growth normal respiratory brent -[employer] is following the patient -Obtain VQ scan Acute renal failure superimposed on chronic kidney disease stage III -Renal functions did improve to baseline -Continue monitor renal function -Avoid nephrotoxins Hyperbilirubinemia, resolved -Follow-up labs shows resolution -CT scan indicated marked gallbladder wall thickening, -Obtain gallbladder ultrasound Alcohol abuse -CIWA scores have all remained 0 -Discontinued CIWA protocol -Cessation counseling was provided DVT prevention -Subcutaneous heparin -Sequential compression devices
[2018-06-22] MEDS: Azithromycin Inj 500 MG in Sodium Chlor 0.9% Inj 250 ML IV.SIG SCH (11:26)
[2018-06-22] MEDS: Insulin NovoLOG Aspart Correctional Sugar Inj SQ SCH ×3 (12:21→20:29)
--- NOTE | 2018-06-22 15:23 | NM ---
EXAM DATE: 06/22/2018 2:57 PM EST AGE/SEX: 87 years / Male INDICATIONS: Short of breath. CLINICAL DATA: This is the patient's initial encounter. Patient reports that signs and symptoms have been present for 1 day and indicates a pain score of 3/10. MEDICAL/SURGICAL HISTORY: Chronic obstructive pulmonary disease. Hypertension. Pacemaker. COMPARISON: [facility], CHEST 1V SINGLE AP, 06/19/2018. . DOSE: 1.7 mCi Tc99m DTPA aerosol 8.1 mCi Tc99m MAA IV TECHNIQUE: Following five minutes of tidal breathing of DTPA aerosol, planar images of the lungs wer e performed in eight projections. The patient was then injected with MAA, and eight-view perfusion s can was performed. FINDINGS: There is a diffusely heterogeneous pattern of aerosol delivery to the lungs bilaterally in a diffusel y heterogeneous pattern of perfusion in the lungs bilaterally. Multiple moderate-sized to large match ed ventilation and perfusion defects are seen bilaterally. Correlating findings of emphysema are note d on chest x-ray. CONCLUSION: Low probability for pulmonary embolus. Electronically signed by: Monty Hernandez MD 06/22/2018 3:21 PM EST
--- NOTE | 2018-06-22 15:55 | US ---
EXAM DATE: 06/22/2018 3:43 PM EST AGE/SEX: 87 years / Male INDICATIONS: Abnormal CT with gallbladder wall thickening. CLINICAL DATA: This is the patient's initial encounter. Patient reports that signs and symptoms have been present for 1 day and indicates a pain score of 0/10. MEDICAL/SURGICAL HISTORY: Chronic obstructive pulmonary disease. Hypertension. Afib. Benign pr ostatic hyperplasia. Hyperlipidemia. Intracranial hemorrhage. Pacemaker. Pneumonia. Pacemaker. COMPARISON: [facility], CT CHEST W/O CONTRAST, 06/19/2018. . MEASUREMENTS: Liver:__ 16.6 cm. Common Bile Duct:__ 6mm. FINDINGS: Liver: Normal echotexture without focal lesion or ductal dilatation. Portal Vein: Hepatopedal flow seen in portal vein. Common Duct: No intraluminal mass or stone visualized. Gallbladder: Gallbladder wall measures almost 7 mm. There are no stones inside the gallbladder. Ther e is slight fluid in the pericholecystic space and adjacent peritoneal cavity. Pancreas: The visualized portions are within normal limits Right Kidney: Increased echotexture. No mass or hydronephrosis. Other: None. CONCLUSION: 1. Nonspecific gallbladder wall thickening with slight pericholecystic fluid without gallstones. The appearance is nonspecific. Electronically signed by: Keren Cunningham MD 06/22/2018 3:54 PM EST
--- NOTE | 2018-06-22 17:49 | P.PN ---
Subjective Interval history: he is coughing up bloody sputum.No chest pains. V/Q Scan was low Probability. Less wheezing now. Physical Exam Vital signs: Vital Signs 06/21/18 20:00 06/21/18 21:25 06/22/18 00:00 Temperature 98 F 97.9 F Pulse Rate 76 78 76 Respiratory Rate 16 18 14 Blood Pressure 119/67 130/70 Pulse Oximetry 92 L 92 L 06/22/18 04:00 06/22/18 04:49 06/22/18 07:45 Temperature 97.8 F Pulse Rate 68 75 73 Respiratory Rate 16 24 Blood Pressure 144/80 H Pulse Oximetry 95 93 L 06/22/18 08:00 06/22/18 12:00 Temperature 97.8 F 97.4 F L Pulse Rate 68 70 Respiratory Rate 21 24 Blood Pressure 153/80 H 136/70 Pulse Oximetry 92 L 92 L Intake & Output 06/21/18 06/22/18 06/22/18 18:59 06:59 18:59 Intake Total 1310 / 1310 690 / 690 450 / 450 Output Total 580 / 580 400 / 400 Balance 730 / 730 290 / 290 450 / 450 Weight 88.3 kg Intake: IV 350 / 350 450 / 450 450 / 450 NS Inj 1,000 ML @ 50 mls/hr IV. 450 / 450 100 / 100 CONT .Q20H SHARI Rx#:[id number] Azithromycin Inj 500 MG In NS 250 / 250 250 / 250 Inj 250 ML @ 250 mls/hr IV.SIG Q24H SHARI Rx#:[id number] Rocephin Inj 1,000 MG In NS Inj 100 / 100 100 / 100 100 ML @ 200 mls/hr IV.SIG Q24H SHARI Rx#:[id number] Oral 960 / 960 240 / 240 Output: Urine 580 / 580 400 / 400 Other: Date of Last Bowel Movement 06/17/18 06/17/18 Narrative: GENERAL: Well-developed, well-nourished, in no acute distress. alert and oriented HEENT: Head is normocephalic without any lesions or masses noted. Facial features are symmetric. Eyes: Extraocular muscles are intact. Conjunctivae were clear. NECK: Supple without any masses. Trachea midline no deviation. No JVD, CARDIAC: Regular rhythm, regular rate. S1/S2 are heard. No murmurs gallops or rubs. LUNGS: Diminished breath sounds noted bilaterally. Occ wheeze. No use of accessory muscles on inspiration or expiration. ABDOMEN: Soft, nontender. Nondistended. Bowel sounds heard in all 4 quadrants. No organomegaly or masses. Negative rebound, negative guarding EXTREMITIES: No edema, pulses are equal bilaterally. No cyanosis or clubbing NEUROLOGY: Mood and affect appear appropriate. Cranial nerves II through XII grossly intact. Moving all extremities, speech is clear Results - Labs CBC & Chem 7: 06/21/18 04:27 06/21/18 04:27 Laboratory Results - last 24 hr 06/22/18 06/22/18 11:30 17:06 POC Glucose 210 H 197 H Microbiology 06/22/18 05:30 Sputum - Expectorated Sputum Gram Stain - Final 06/20/18 10:00 Sputum - Expectorated Sputum Gram Stain - Final 06/20/18 10:00 Sputum - Expectorated Sputum Sputum Culture - Final Heavy growth normal respiratory brent 06/19/18 09:00 Blood - Peripheral Aerobic Blood Culture - Preliminary No growth in 3 days 06/19/18 09:00 Blood - Peripheral Anaerobic Blood Culture - Preliminary No growth in 3 days 06/19/18 09:10 Blood - Peripheral Aerobic Blood Culture - Preliminary No growth in 3 days 06/19/18 09:10 Blood - Peripheral Anaerobic Blood Culture - Preliminary No growth in 3 days - Imaging Impressions Gallbladder Ultrasound 06/22/18 00:00 CONCLUSION: 1. Nonspecific gallbladder wall thickening with slight pericholecystic fluid without gallstones. The appearance is nonspecific. Pulmonary Perfusion Imaging 06/22/18 00:00 CONCLUSION: Low probability for pulmonary embolus. Assessment and Plan - Assessment (1) Hypoxia Code(s): R09.02 - Hypoxemia Status: Acute (2) Pneumonia Code(s): J18.9 - Pneumonia, unspecified organism Status: Acute (3) Hypokalemia Code(s): E87.6 - Hypokalemia Status: Acute (4) COPD exacerbation Code(s): J44.1 - Chronic obstructive pulmonary disease with (acute) exacerbation Status: Acute (5) Pacemaker Code(s): Z95.0 - Presence of cardiac pacemaker Status: Acute (6) History of cardiac pacemaker Code(s): Z95.0 - Presence of cardiac pacemaker Status: Acute (7) Hemoptysis Code(s): R04.2 - Hemoptysis Status: Acute - Plan 1. Cont antibiotic Rocephin, Zithromax 2. O2 2 L N/C 3. Duoneb nebs qid. 4. Symbicort 160/4.5 mcg , 2 puffs BID 5. Taper Solumedrol 40 mg IV Q8H 6. CBC and BMP.CXR in am 7. will consider Bronchoscopy if hemoptysis persists. Pt will think about it. (2) Pneumonia Qualifiers: Pneumonia type: due to unspecified organism Laterality: right Lung location : middle lobe of lung Qualified Code(s): J18.1 - Lobar pneumonia, unspecified organism
[2018-06-22] MEDS: Latanoprost 0.005% Opth Drops 2.5 ML Bottle LEFT EYE SCH (20:14)
[2018-06-22] MEDS: prednisoLONE Acetate 1% Opth Susp 5 ML Bottle RIGHT EYE SCH (20:14)
[2018-06-22 21:53] LABS: Hemoglobin A1c 6.2 % (4.3-6.0)
[2018-06-23 05:28] LABS: Potassium 4.6 meq/L (3.5-5.1)
[2018-06-23 05:28] LABS: Baso % (Auto) 0.1 % (0.0-2.0); Eos % (Auto) 0.1 % (0.0-4.0); Hematocrit 37.2 % (39.0-51.0); Hemoglobin 12.9 gm/dL (13.0-17.0); Lymph # (Auto) 0.2 th/mm3 (1.0-4.8); Lymph % (Auto) 4.3 % (9.0-44.0); Mean Corpuscular HGB Conc 34.6 % (32.0-36.0); Mean Corpuscular Hemoglobin 35.8 pg (27.0-34.0); Mean Corpuscular Volume 103.5 fL (80.0-100.0); Mean Platelet Volume 7.7 fL (7.0-11.0); Mono # (Auto) 0.3 th/mm3 (0.0-0.9); Mono % (Auto) 5.6 % (0.0-8.0); Neut # (Auto) 4.6 th/mm3 (1.8-7.7); Neut % (Auto) 89.9 % (16.0-70.0); Platelet Count 211 th/mm3 (150-450); Red Cell Distribution Width 12.1 % (11.6-17.2); White Blood Count 5.1 th/mm3 (4.0-11.0)
[2018-06-23 05:30] LABS: Calcium 8.1 mg/dL (8.5-10.1)
[2018-06-23 05:31] LABS: Carbon Dioxide 23.8 meq/L (21.0-32.0)
--- NOTE | 2018-06-23 05:54 | XR ---
EXAM DATE: 06/23/2018 5:16 AM EST AGE/SEX: 87 years / Male INDICATIONS: Shortness of breath CLINICAL DATA: This is the patient's subsequent encounter. Patient reports that signs and symptoms h ave been present for 4 - 6 days and indicates a pain score of 0/10. MEDICAL/SURGICAL HISTORY: Chronic obstructive pulmonary disease. Pacemaker. COMPARISON: [facility], CHEST 1V SINGLE AP, 06/19/2018. . FINDINGS: A single AP view of the chest demonstrates no interval change. Again seen are patchy areas of scatter ed consolidation throughout the right lung. A small right effusion. Left lung is clear. Both lungs ar e hyper aerated. Heart is mildly enlarged but stable. Pacing device overlies the left chest. CONCLUSION: No interval change in the patchy areas of consolidation involving the right lung. Small right effusio n. Hyperinflation suggests underlying COPD. Mild cardiomegaly. Electronically signed by: Edgar Colon MD 06/23/2018 5:53 AM EST
[2018-06-23] MEDS: MethylPREDNISolone Sod Succinate Inj 40 MG/ML Vial IV.PUSH SCH ×3 (07:37→20:51)
[2018-06-23] MEDS: Folic Acid 1 MG Tablet PO SCH (08:31)
[2018-06-23] MEDS: Multivitamin/Minerals Therapeutic Tablet PO SCH (08:31)
[2018-06-23] MEDS: Loratadine 10 MG Tablet PO SCH (08:31)
[2018-06-23] MEDS: Senna/Docusate Sodium 8.6/50 MG Tablet PO SCH ×2 (08:31→20:21)
[2018-06-23] MEDS: Brimonidine 0.2% Opth Drops 5 ML Bottle LEFT EYE SCH ×2 (08:31→20:21)
[2018-06-23] MEDS: Dorzolamide 2% Opth Drops 10 ML Bottle LEFT EYE SCH ×2 (08:31→20:21)
[2018-06-23] MEDS: prednisoLONE Acetate 1% Opth Susp 5 ML Bottle RIGHT EYE SCH ×2 (08:31→20:21)
[2018-06-23] MEDS: Insulin NovoLOG Aspart Correctional Sugar Inj SQ SCH ×4 (08:31→20:21)
[2018-06-23] MEDS: Verapamil SR 240 MG Tablet PO SCH (08:32)
[2018-06-23] MEDS: Azithromycin Inj 500 MG in Sodium Chlor 0.9% Inj 250 ML IV.SIG SCH (11:26)
--- NOTE | 2018-06-23 13:46 | P.PNIM ---
Subjective Interval history: 87-year-old male who is seen and examined today for follow-up on acute hypoxic respiratory failure, pneumonia, hemoptysis. Patient without any significant improvement. Still on 3.5 L nasal cannula. Patient still with hemoptysis. Discussed with patient that director [facility] recommending bronchoscopy if he does not improve or hemoptysis continues. Patient does understand and is in agreement with procedure. Vital signs are stable. Patient remains afebrile Physical Exam Vital signs: Vital Signs 06/22/18 16:00 06/22/18 19:14 06/22/18 20:00 Temperature 97.6 F 98.3 F Pulse Rate 68 71 69 Respiratory Rate 20 18 22 Blood Pressure 143/73 H 145/76 H Pulse Oximetry 92 L 96 92 L 06/23/18 00:00 06/23/18 04:00 06/23/18 08:24 Temperature 97.7 F 97.4 F L Pulse Rate 71 73 73 Respiratory Rate 16 18 Blood Pressure 120/63 132/74 Pulse Oximetry 93 L 96 94 L 06/23/18 13:28 Temperature Pulse Rate 71 Respiratory Rate 20 Blood Pressure Pulse Oximetry 97 Intake & Output 06/22/18 06/23/18 06/23/18 18:59 06:59 18:59 Intake Total 1410 / 1410 320 / 320 Output Total 350 / 350 600 / 600 Balance 1060 / 1060 -280 / -280 Weight 80.4 kg Intake: IV 450 / 450 NS Inj 1,000 ML @ 50 mls/hr IV. 100 / 100 CONT .Q20H SHARI Rx#:[id number] Azithromycin Inj 500 MG In NS 250 / 250 Inj 250 ML @ 250 mls/hr IV.SIG Q24H SHARI Rx#:[id number] Rocephin Inj 1,000 MG In NS Inj 100 / 100 100 ML @ 200 mls/hr IV.SIG Q24H SHARI Rx#:[id number] Oral 960 / 960 320 / 320 Output: Urine 350 / 350 600 / 600 Other: Date of Last Bowel Movement 06/17/18 06/17/18 # Bowel Movements 0 Narrative: GENERAL: Well-developed, well-nourished, in no acute distress. alert and orientated HEENT: Head is normocephalic without any lesions or masses noted. Facial features are symmetric. Eyes: Extraocular muscles are intact. Conjunctivae were clear. NECK: Supple without any masses. Trachea midline no deviation. No JVD, CARDIAC: Regular rhythm, regular rate. S1/S2 are heard. No murmurs gallops or rubs. LUNGS: Diminished breath sounds noted bilaterally. No wheeze, rhonchi or rales. No use of accessory muscles on inspiration or expiration. ABDOMEN: Soft, nontender. Nondistended. Bowel sounds heard in all 4 quadrants. No organomegaly or masses. Negative rebound, negative guarding EXTREMITIES: No edema, pulses are equal bilaterally. No cyanosis or clubbing NEUROLOGY: Mood and affect appear appropriate. Cranial nerves II through XII grossly intact. Moving all extremities, speech is clear Results - Labs CBC & Chem 7: 06/23/18 04:30 06/23/18 05:06 Laboratory Results - last 24 hr 06/21/18 06/22/18 06/22/18 09:46 17:06 20:16 CBC w Diff WBC RBC Hgb Hct MCV MCH MCHC RDW Plt Count MPV Neut % (Auto) Lymph % (Auto) [place] % (Auto) Eos % (Auto) Baso % (Auto) Neut # (Auto) Lymph # (Auto) [place] # (Auto) Eos # (Auto) Baso # (Auto) WBC Differential Diff Scan Differential Comment Sodium Potassium Chloride Carbon Dioxide Anion Gap BUN Creatinine Estimated GFR POC Glucose 197 H 163 H Random Glucose Hemoglobin A1c 6.2 H Calcium 06/23/18 06/23/18 06/23/18 04:30 05:06 07:34 CBC w Diff Slide review pending WBC 5.1 RBC 3.60 L Hgb 12.9 L Hct 37.2 L MCV 103.5 H MCH 35.8 H MCHC 34.6 RDW 12.1 Plt Count 211 MPV 7.7 Neut % (Auto) 89.9 H Lymph % (Auto) 4.3 L [place] % (Auto) 5.6 Eos % (Auto) 0.1 Baso % (Auto) 0.1 Neut # (Auto) 4.6 Lymph # (Auto) 0.2 L [place] # (Auto) 0.3 Eos # (Auto) 0.0 Baso # (Auto) 0.0 WBC Differential . Diff Scan Auto diff confirmed Differential Comment . Sodium 137 Potassium 4.6 Chloride 105 Carbon Dioxide 23.8 Anion Gap 8 BUN 51 H Creatinine 1.30 Estimated GFR 52 L POC Glucose 154 H Random Glucose 168 H Hemoglobin A1c Calcium 8.1 L 06/23/18 11:58 CBC w Diff WBC RBC Hgb Hct MCV MCH MCHC RDW Plt Count MPV Neut % (Auto) Lymph % (Auto) [place] % (Auto) Eos % (Auto) Baso % (Auto) Neut # (Auto) Lymph # (Auto) [place] # (Auto) Eos # (Auto) Baso # (Auto) WBC Differential Diff Scan Differential Comment Sodium Potassium Chloride Carbon Dioxide Anion Gap BUN Creatinine Estimated GFR POC Glucose 221 H Random Glucose Hemoglobin A1c Calcium Microbiology 06/22/18 05:30 Sputum - Expectorated Sputum Gram Stain - Final 06/22/18 05:30 Sputum - Expectorated Sputum Sputum Culture - Preliminary Moderate growth normal respiratory brent at 24 hours 06/19/18 09:00 Blood - Peripheral Aerobic Blood Culture - Preliminary No growth in 4 days 06/19/18 09:00 Blood - Peripheral Anaerobic Blood Culture - Preliminary No growth in 4 days 06/19/18 09:10 Blood - Peripheral Aerobic Blood Culture - Preliminary No growth in 4 days 06/19/18 09:10 Blood - Peripheral Anaerobic Blood Culture - Preliminary No growth in 4 days 06/20/18 10:00 Sputum - Expectorated Sputum Gram Stain - Final 06/20/18 10:00 Sputum - Expectorated Sputum Sputum Culture - Final Heavy growth normal respiratory brent - Imaging Impressions Gallbladder Ultrasound 06/22/18 00:00 CONCLUSION: 1. Nonspecific gallbladder wall thickening with slight pericholecystic fluid without gallstones. The appearance is nonspecific. Pulmonary Perfusion Imaging 06/22/18 00:00 CONCLUSION: Low probability for pulmonary embolus. Chest X-Ray 06/23/18 00:00 CONCLUSION: No interval change in the patchy areas of consolidation involving the right lung. Small right effusion. Hyperinflation suggests underlying COPD. Mild cardiomegaly. Assessment and Plan - Plan Acute hypoxic respiratory failure -Multifactorial with patient having possible COPD exacerbation and community acquired pneumonia, hemoptysis -CT of the chest showed mild bibasilar consolidation, acute pneumonia in the right upper lobe, severe emphysema. -Patient continued on antibiotics for community acquired pneumonia to include Rocephin, Zithromax -Continue O2 supplementation to maintain O2 sat greater than 92% -Continue duo nebs every 6 hours while awake and every 2 hours as needed -Continue Solu-Medrol 40 mg IV every 6 hours -Continue easy Pap -Influenza testing was negative, streptococcal testing and Legionella testing was negative, sputum cultures showed heavy growth normal respiratory brent -Director Of Creative Services is following the patient -VQ scan indicated low probability for embolic event -Patient will likely require bronchoscopy for further evaluation and treatment recommendations Acute renal failure superimposed on chronic kidney disease stage III -Renal functions continue to improve -Continue monitor renal function -Avoid nephrotoxins Hyperbilirubinemia, resolved -Follow-up labs shows resolution -CT scan indicated marked gallbladder wall thickening, -Gallbladder ultrasound showed nonspecific gallbladder wall thickening with slight pericholecystic fluid without gallstones the appearance is nonspecific Hyperglycemia -Likely secondary to steroid use -Hemoglobin A1c 6.2 -Accu-Cheks with sliding scale insulin Alcohol abuse -CIWA scores have all remained 0 -Discontinued CIWA protocol -Cessation counseling was provided DVT prevention -Subcutaneous heparin -Sequential compression devices
[2018-06-23] MEDS: Latanoprost 0.005% Opth Drops 2.5 ML Bottle LEFT EYE SCH (20:21)
--- NOTE | 2018-06-23 20:22 | P.PN ---
Subjective Interval history: Has some hemoptysis .Off heparin now. No fever. O2 sats 90 on RA. Needs Home O2 . Suggested Bronchoscopy and he now has agreed. Physical Exam Vital signs: Vital Signs 06/23/18 00:00 06/23/18 04:00 06/23/18 08:00 Temperature 97.7 F 97.4 F L 97.8 F Pulse Rate 71 73 68 Respiratory Rate 16 31 H Blood Pressure 120/63 132/74 139/66 Pulse Oximetry 93 L 96 93 L 06/23/18 08:24 06/23/18 12:00 06/23/18 13:28 Temperature 97.5 F L Pulse Rate 73 68 71 Respiratory Rate 18 24 20 Blood Pressure 128/70 Pulse Oximetry 94 L 96 97 06/23/18 16:00 Temperature 97.4 F L Pulse Rate 70 Respiratory Rate 29 H Blood Pressure 154/76 H Pulse Oximetry 97 Intake & Output 06/23/18 06/23/18 06/24/18 06:59 18:59 06:59 Intake Total 320 / 320 1310 / 1310 Output Total 600 / 600 350 / 350 Balance -280 / -280 960 / 960 Weight 80.4 kg Intake: IV 350 / 350 Azithromycin Inj 500 MG In NS 250 / 250 Inj 250 ML @ 250 mls/hr IV.SIG Q24H SHARI Rx#:[id number] Rocephin Inj 1,000 MG In NS Inj 100 / 100 100 ML @ 200 mls/hr IV.SIG Q24H SHARI Rx#:[id number] Oral 320 / 320 960 / 960 Output: Urine 600 / 600 350 / 350 Other: Date of Last Bowel Movement 06/23/18 # Bowel Movements 0 2 Narrative: GENERAL: Well-developed, well-nourished, in no acute distress. alert and orientated HEENT: Head is normocephalic without any lesions or masses noted. Facial features are symmetric. Eyes: Extraocular muscles are intact. Conjunctivae were clear. NECK: Supple without any masses. Trachea midline no deviation. No JVD, CARDIAC: Regular rhythm, regular rate. S1/S2 are heard. No murmurs gallops or rubs. LUNGS: Diminished breath sounds noted bilaterally.Has wheeze bilaterally .No use of accessory muscles . ABDOMEN: Soft, nontender. Nondistended. Bowel sounds heard in all 4 quadrants. No organomegaly or masses. Negative rebound, negative guarding EXTREMITIES: No edema, pulses are equal bilaterally. No cyanosis or clubbing NEUROLOGY: Mood and affect appear appropriate. Cranial nerves II through XII grossly intact. Moving all extremities, speech is clear Results - Labs CBC & Chem 7: 06/23/18 04:30 06/23/18 05:06 Laboratory Results - last 24 hr 06/21/18 06/23/18 06/23/18 09:46 04:30 05:06 CBC w Diff Slide review pending WBC 5.1 RBC 3.60 L Hgb 12.9 L Hct 37.2 L MCV 103.5 H MCH 35.8 H MCHC 34.6 RDW 12.1 Plt Count 211 MPV 7.7 Neut % (Auto) 89.9 H Lymph % (Auto) 4.3 L [place] % (Auto) 5.6 Eos % (Auto) 0.1 Baso % (Auto) 0.1 Neut # (Auto) 4.6 Lymph # (Auto) 0.2 L [place] # (Auto) 0.3 Eos # (Auto) 0.0 Baso # (Auto) 0.0 WBC Differential . Diff Scan Auto diff confirmed Differential Comment . Sodium 137 Potassium 4.6 Chloride 105 Carbon Dioxide 23.8 Anion Gap 8 BUN 51 H Creatinine 1.30 Estimated GFR 52 L POC Glucose Random Glucose 168 H Hemoglobin A1c 6.2 H Calcium 8.1 L 06/23/18 06/23/18 06/23/18 07:34 11:58 16:49 CBC w Diff WBC RBC Hgb Hct MCV MCH MCHC RDW Plt Count MPV Neut % (Auto) Lymph % (Auto) [place] % (Auto) Eos % (Auto) Baso % (Auto) Neut # (Auto) Lymph # (Auto) [place] # (Auto) Eos # (Auto) Baso # (Auto) WBC Differential Diff Scan Differential Comment Sodium Potassium Chloride Carbon Dioxide Anion Gap BUN Creatinine Estimated GFR POC Glucose 154 H 221 H 246 H Random Glucose Hemoglobin A1c Calcium 06/23/18 19:40 CBC w Diff WBC RBC Hgb Hct MCV MCH MCHC RDW Plt Count MPV Neut % (Auto) Lymph % (Auto) [place] % (Auto) Eos % (Auto) Baso % (Auto) Neut # (Auto) Lymph # (Auto) [place] # (Auto) Eos # (Auto) Baso # (Auto) WBC Differential Diff Scan Differential Comment Sodium Potassium Chloride Carbon Dioxide Anion Gap BUN Creatinine Estimated GFR POC Glucose 178 H Random Glucose Hemoglobin A1c Calcium Microbiology 06/22/18 05:30 Sputum - Expectorated Sputum Gram Stain - Final 06/22/18 05:30 Sputum - Expectorated Sputum Sputum Culture - Preliminary Moderate growth normal respiratory brent at 24 hours 06/19/18 09:00 Blood - Peripheral Aerobic Blood Culture - Preliminary No growth in 4 days 06/19/18 09:00 Blood - Peripheral Anaerobic Blood Culture - Preliminary No growth in 4 days 06/19/18 09:10 Blood - Peripheral Aerobic Blood Culture - Preliminary No growth in 4 days 06/19/18 09:10 Blood - Peripheral Anaerobic Blood Culture - Preliminary No growth in 4 days - Imaging Impressions Chest X-Ray 06/23/18 00:00 CONCLUSION: No interval change in the patchy areas of consolidation involving the right lung. Small right effusion. Hyperinflation suggests underlying COPD. Mild cardiomegaly. Assessment and Plan - Assessment (1) Hypoxia Code(s): R09.02 - Hypoxemia Status: Acute (2) Pneumonia Code(s): J18.9 - Pneumonia, unspecified organism Status: Acute (3) Hypokalemia Code(s): E87.6 - Hypokalemia Status: Acute (4) COPD exacerbation Code(s): J44.1 - Chronic obstructive pulmonary disease with (acute) exacerbation Status: Acute (5) Pacemaker Code(s): Z95.0 - Presence of cardiac pacemaker Status: Acute (6) History of cardiac pacemaker Code(s): Z95.0 - Presence of cardiac pacemaker Status: Acute (7) Hemoptysis Code(s): R04.2 - Hemoptysis Status: Acute - Plan 1. Cont antibiotic Rocephin, D/C Zithromax 2. O2 2 L N/C 3. Duoneb nebs qid. 4. Symbicort 160/4.5 mcg , 2 puffs BID 5. Taper Solumedrol 40 mg IV Q12H and stop in 2 days 6. Add Prednisone 20 mg BID from tuesday 7. will schedule Bronchoscopy early next week, but he can go home if stable over weekend and come as OP for the Bronchoscopy (2) Pneumonia Qualifiers: Pneumonia type: due to unspecified organism Laterality: right Lung location : middle lobe of lung Qualified Code(s): J18.1 - Lobar pneumonia, unspecified organism
--- NOTE | 2018-06-24 08:13 | P.PNIM ---
Subjective Interval history: 87-year-old male who is seen and examined today for follow-up on pneumonia, respiratory failure, hemoptysis. Patient states that he appears pretty good today. He has not had any hemoptysis this morning. Patient is not requiring as much oxygen at this time. Patient remains afebrile. Physical Exam Vital signs: Vital Signs 06/23/18 08:24 06/23/18 12:00 06/23/18 13:28 Temperature 97.5 F L Pulse Rate 73 68 71 Respiratory Rate 18 24 20 Blood Pressure 128/70 Pulse Oximetry 94 L 96 97 06/23/18 16:00 06/23/18 19:55 06/23/18 20:00 Temperature 97.4 F L 97.4 F L Pulse Rate 70 75 71 Respiratory Rate 29 H 20 24 Blood Pressure 154/76 H 151/70 H Pulse Oximetry 97 96 97 06/24/18 00:00 06/24/18 04:00 06/24/18 07:24 Temperature 98.6 F 97.5 F L Pulse Rate 80 80 Respiratory Rate 24 30 H Blood Pressure 135/69 159/88 H Pulse Oximetry 93 L 93 L 95 Intake & Output 06/23/18 06/24/18 06/24/18 18:59 06:59 18:59 Intake Total 1310 / 1310 480 / 480 Output Total 350 / 350 400 / 400 Balance 960 / 960 80 / 80 Weight 88.5 kg Intake: IV 350 / 350 Azithromycin Inj 500 MG In NS 250 / 250 Inj 250 ML @ 250 mls/hr IV.SIG Q24H SHARI Rx#:[id number] Rocephin Inj 1,000 MG In NS Inj 100 / 100 100 ML @ 200 mls/hr IV.SIG Q24H SHARI Rx#:[id number] Oral 960 / 960 480 / 480 Output: Urine 350 / 350 400 / 400 Other: Date of Last Bowel Movement 06/23/18 06/23/18 # Bowel Movements 2 0 Narrative: GENERAL: Well-developed, well-nourished, in no acute distress. alert and orientated HEENT: Head is normocephalic without any lesions or masses noted. Facial features are symmetric. Eyes: Extraocular muscles are intact. Conjunctivae were clear. NECK: Supple without any masses. Trachea midline no deviation. No JVD, CARDIAC: Regular rhythm, regular rate. S1/S2 are heard. No murmurs gallops or rubs. LUNGS: Diminished breath sounds noted bilaterally. No wheeze, rhonchi or rales. No use of accessory muscles on inspiration or expiration. ABDOMEN: Soft, nontender. Nondistended. Bowel sounds heard in all 4 quadrants. No organomegaly or masses. Negative rebound, negative guarding EXTREMITIES: No edema, pulses are equal bilaterally. No cyanosis or clubbing NEUROLOGY: Mood and affect appear appropriate. Cranial nerves II through XII grossly intact. Moving all extremities, speech is clear Results - Labs CBC & Chem 7: 06/23/18 04:30 06/23/18 05:06 Laboratory Results - last 24 hr 06/23/18 06/23/18 06/23/18 11:58 16:49 19:40 POC Glucose 221 H 246 H 178 H Microbiology 06/22/18 05:30 Sputum - Expectorated Sputum Gram Stain - Final 06/22/18 05:30 Sputum - Expectorated Sputum Sputum Culture - Preliminary Moderate growth normal respiratory brent at 24 hours 06/19/18 09:00 Blood - Peripheral Aerobic Blood Culture - Preliminary No growth in 4 days 06/19/18 09:00 Blood - Peripheral Anaerobic Blood Culture - Preliminary No growth in 4 days 06/19/18 09:10 Blood - Peripheral Aerobic Blood Culture - Preliminary No growth in 4 days 06/19/18 09:10 Blood - Peripheral Anaerobic Blood Culture - Preliminary No growth in 4 days Assessment and Plan - Plan Acute hypoxic respiratory failure -Multifactorial with patient having possible COPD exacerbation and community acquired pneumonia, hemoptysis -CT of the chest showed mild bibasilar consolidation, acute pneumonia in the right upper lobe, severe emphysema. -Patient continued on antibiotics for community acquired pneumonia to include Rocephin, completed Zithromax -Continue O2 supplementation to maintain O2 sat greater than 92% -Continue duo nebs every 6 hours while awake and every 2 hours as needed -Continue Solu-Medrol 40 mg IV every 6 hours -Continue easy Pap -Influenza testing was negative, streptococcal testing and Legionella testing was negative, sputum cultures showed heavy growth normal respiratory brent -Manufacturing Supervisor [employer] Shift is following the patient -VQ scan indicated low probability for embolic event -Patient will likely require bronchoscopy for further evaluation and treatment recommendations. He was recommended by automobile mechanic assistant that patient may be discharged if approved for the weekend, however if not discharged and anticipate doing bronchoscopy next week. Acute renal failure superimposed on chronic kidney disease stage III, improving -Renal functions continue to improve -Continue monitor renal function -Avoid nephrotoxins Hyperbilirubinemia, resolved -Follow-up labs shows resolution -CT scan indicated marked gallbladder wall thickening, -Gallbladder ultrasound showed nonspecific gallbladder wall thickening with slight pericholecystic fluid without gallstones the appearance is nonspecific Hyperglycemia -Likely secondary to steroid use -Hemoglobin A1c 6.2 -Accu-Cheks with sliding scale insulin Alcohol abuse -CIWA scores have all remained 0 -Discontinued CIWA protocol -Cessation counseling was provided DVT prevention -Subcutaneous heparin, on hold due to hemoptysis -Sequential compression devices
[2018-06-24] MEDS: Brimonidine 0.2% Opth Drops 5 ML Bottle LEFT EYE SCH ×2 (08:57→20:20)
[2018-06-24] MEDS: prednisoLONE Acetate 1% Opth Susp 5 ML Bottle RIGHT EYE SCH ×2 (08:57→20:23)
[2018-06-24] MEDS: Dorzolamide 2% Opth Drops 10 ML Bottle LEFT EYE SCH ×2 (08:57→20:22)
[2018-06-24] MEDS: Folic Acid 1 MG Tablet PO SCH (08:59)
[2018-06-24] MEDS: Senna/Docusate Sodium 8.6/50 MG Tablet PO SCH ×2 (08:59→20:18)
[2018-06-24] MEDS: Loratadine 10 MG Tablet PO SCH (08:59)
[2018-06-24] MEDS: Verapamil SR 240 MG Tablet PO SCH (09:00)
[2018-06-24] MEDS: MethylPREDNISolone Sod Succinate Inj 40 MG/ML Vial IV.PUSH SCH ×2 (09:00→20:18)
[2018-06-24] MEDS: Multivitamin/Minerals Therapeutic Tablet PO SCH (09:00)
[2018-06-24] MEDS: Insulin NovoLOG Aspart Correctional Sugar Inj SQ SCH ×4 (09:24→20:22)
[2018-06-24] MEDS: clonazePAM 0.5 MG Tablet PO PRN (18:13)
--- NOTE | 2018-06-24 18:38 | P.PN ---
Subjective Interval history: still sob but less sitting in chair Physical Exam Vital signs: Vital Signs 06/23/18 19:00 06/23/18 19:27 06/23/18 19:55 Temperature Pulse Rate 76 68 75 Respiratory Rate 26 H 20 20 Blood Pressure 151/70 H Pulse Oximetry 96 97 96 06/23/18 20:00 06/23/18 21:00 06/23/18 22:00 Temperature 97.4 F L Pulse Rate 74 68 68 Respiratory Rate 29 H 25 H 28 H Blood Pressure 151/70 H Pulse Oximetry 96 96 94 L 06/23/18 23:00 06/23/18 23:17 06/24/18 00:00 Temperature 98.6 F Pulse Rate 68 78 82 Respiratory Rate 19 23 30 H Blood Pressure 135/69 135/69 Pulse Oximetry 96 95 94 L 06/24/18 01:00 06/24/18 02:00 06/24/18 03:00 Temperature Pulse Rate 68 68 72 Respiratory Rate 27 H 21 19 Blood Pressure Pulse Oximetry 97 97 94 L 06/24/18 03:49 06/24/18 04:00 06/24/18 05:00 Temperature 97.5 F L Pulse Rate 70 68 68 Respiratory Rate 20 24 27 H Blood Pressure 159/88 H 159/88 H Pulse Oximetry 94 L 96 95 06/24/18 06:00 06/24/18 07:00 06/24/18 07:24 Temperature Pulse Rate 82 72 Respiratory Rate 27 H 11 L Blood Pressure Pulse Oximetry 96 93 L 95 06/24/18 08:00 06/24/18 09:00 06/24/18 10:13 Temperature Pulse Rate 68 70 Respiratory Rate 22 22 Blood Pressure Pulse Oximetry 95 92 L 95 06/24/18 11:00 06/24/18 11:55 06/24/18 12:00 Temperature Pulse Rate 68 70 68 Respiratory Rate 27 H 31 H 31 H Blood Pressure 168/78 H Pulse Oximetry 93 L 91 L 94 L 06/24/18 12:14 06/24/18 13:00 06/24/18 14:00 Temperature Pulse Rate 70 68 70 Respiratory Rate 30 H 25 H 20 Blood Pressure 149/68 H Pulse Oximetry 93 L 94 L 95 06/24/18 14:57 06/24/18 15:00 06/24/18 16:00 Temperature Pulse Rate 74 70 Respiratory Rate 26 H 23 Blood Pressure 165/78 H Pulse Oximetry 96 93 L 06/24/18 16:34 Temperature 98.0 F Pulse Rate 70 Respiratory Rate 22 Blood Pressure 160/88 H Pulse Oximetry 95 Intake & Output 06/23/18 06/24/18 06/24/18 18:59 06:59 18:59 Intake Total 1310 / 1310 480 / 480 Output Total 350 / 350 400 / 400 Balance 960 / 960 80 / 80 Weight 88.5 kg Intake: IV 350 / 350 Azithromycin Inj 500 MG In NS 250 / 250 Inj 250 ML @ 250 mls/hr IV.SIG Q24H SHARI Rx#:[id number] Rocephin Inj 1,000 MG In NS Inj 100 / 100 100 ML @ 200 mls/hr IV.SIG Q24H SHARI Rx#:[id number] Oral 960 / 960 480 / 480 Output: Urine 350 / 350 400 / 400 Other: Date of Last Bowel Movement 06/23/18 06/23/18 # Bowel Movements 2 0 Narrative: GENERAL: Well-developed, well-nourished, in no acute distress. alert and orientated HEENT: Head is normocephalic without any lesions or masses noted. Facial features are symmetric. Eyes: Extraocular muscles are intact. Conjunctivae were clear. NECK: Supple without any masses. Trachea midline no deviation. No JVD, CARDIAC: Regular rhythm, regular rate. S1/S2 are heard. No murmurs gallops or rubs. LUNGS: Diminished breath sounds noted bilaterally. No wheeze, rhonchi or rales. No use of accessory muscles on inspiration or expiration. ABDOMEN: Soft, nontender. Nondistended. Bowel sounds heard in all 4 quadrants. No organomegaly or masses. Negative rebound, negative guarding EXTREMITIES: No edema, pulses are equal bilaterally. No cyanosis or clubbing NEUROLOGY: Mood and affect appear appropriate. Cranial nerves II through XII grossly intact. Moving all extremities, speech is clear Results - Labs CBC & Chem 7: 06/23/18 04:30 06/23/18 05:06 Laboratory Results - last 24 hr 06/23/18 06/24/18 19:40 17:00 POC Glucose 178 H 202 H Microbiology 06/22/18 05:30 Sputum - Expectorated Sputum Gram Stain - Final 06/22/18 05:30 Sputum - Expectorated Sputum Sputum Culture - Final Moderate growth normal respiratory brent 06/19/18 09:00 Blood - Peripheral Aerobic Blood Culture - Final No growth in 5 days 06/19/18 09:00 Blood - Peripheral Anaerobic Blood Culture - Final No growth in 5 days 06/19/18 09:10 Blood - Peripheral Aerobic Blood Culture - Final No growth in 5 days 06/19/18 09:10 Blood - Peripheral Anaerobic Blood Culture - Final No growth in 5 days Assessment and Plan - Plan respiraory failure copd pna plan o2 as needed antibx bronchodilator therapy
[2018-06-24] MEDS: Latanoprost 0.005% Opth Drops 2.5 ML Bottle LEFT EYE SCH (20:20)
[2018-06-25] MEDS: Loratadine 10 MG Tablet PO SCH (08:19)
[2018-06-25] MEDS: MethylPREDNISolone Sod Succinate Inj 40 MG/ML Vial IV.PUSH SCH (08:19)
[2018-06-25] MEDS: Insulin NovoLOG Aspart Correctional Sugar Inj SQ SCH ×4 (08:20→20:54)
[2018-06-25] MEDS: Brimonidine 0.2% Opth Drops 5 ML Bottle LEFT EYE SCH ×2 (08:29→20:49)
[2018-06-25] MEDS: Dorzolamide 2% Opth Drops 10 ML Bottle LEFT EYE SCH ×2 (08:30→20:49)
[2018-06-25] MEDS: prednisoLONE Acetate 1% Opth Susp 5 ML Bottle RIGHT EYE SCH ×2 (08:31→20:49)
[2018-06-25] MEDS: Senna/Docusate Sodium 8.6/50 MG Tablet PO SCH ×2 (08:31→20:44)
[2018-06-25] MEDS: Verapamil SR 240 MG Tablet PO SCH (08:33)
--- NOTE | 2018-06-25 08:35 | P.PNIM ---
Subjective Interval history: 35-year-old male here for follow-up on pneumonia, respiratory failure , hemoptysis. Patient is improving. He is down to 1 L nasal cannula. Patient still having hemoptysis. Vital signs are stable. Patient remains afebrile. Physical Exam Vital signs: Vital Signs 06/24/18 09:00 06/24/18 10:13 06/24/18 11:00 Temperature Pulse Rate 70 68 Respiratory Rate 22 27 H Blood Pressure Pulse Oximetry 92 L 95 93 L 06/24/18 11:55 06/24/18 12:00 06/24/18 12:14 Temperature Pulse Rate 70 68 70 Respiratory Rate 31 H 31 H 30 H Blood Pressure 168/78 H 149/68 H Pulse Oximetry 91 L 94 L 93 L 06/24/18 13:00 06/24/18 14:00 06/24/18 14:57 Temperature Pulse Rate 68 70 Respiratory Rate 25 H 20 Blood Pressure 165/78 H Pulse Oximetry 94 L 95 06/24/18 15:00 06/24/18 16:00 06/24/18 16:34 Temperature 98.0 F Pulse Rate 74 70 70 Respiratory Rate 26 H 23 22 Blood Pressure 160/88 H Pulse Oximetry 96 93 L 95 06/24/18 19:15 06/24/18 20:00 06/25/18 00:00 Temperature 97.7 F 96.0 F L Pulse Rate 73 69 71 Respiratory Rate 22 20 20 Blood Pressure 141/67 H 146/63 H Pulse Oximetry 94 L 93 L 95 06/25/18 08:13 Temperature Pulse Rate 76 Respiratory Rate 20 Blood Pressure Pulse Oximetry 96 Intake & Output 06/24/18 06/25/18 06/25/18 18:59 06:59 18:59 Intake Total 100 / 100 Output Total 200 / 200 Balance -100 / -100 Weight 80.2 kg Intake: IV 100 / 100 Rocephin Inj 1,000 MG In NS Inj 100 / 100 100 ML @ 200 mls/hr IV.SIG Q24H SHARI Rx#:[id number] Output: Urine 200 / 200 Other: # Voids 1 Date of Last Bowel Movement 06/23/18 Narrative: GENERAL: Well-developed, well-nourished, in no acute distress. alert and orientated HEENT: Head is normocephalic without any lesions or masses noted. Facial features are symmetric. Eyes: Extraocular muscles are intact. Conjunctivae were clear. NECK: Supple without any masses. Trachea midline no deviation. No JVD, CARDIAC: Regular rhythm, regular rate. S1/S2 are heard. No murmurs gallops or rubs. LUNGS: Diminished breath sounds noted bilaterally. No wheeze, rhonchi or rales. No use of accessory muscles on inspiration or expiration. ABDOMEN: Soft, nontender. Nondistended. Bowel sounds heard in all 4 quadrants. No organomegaly or masses. Negative rebound, negative guarding EXTREMITIES: No edema, pulses are equal bilaterally. No cyanosis or clubbing NEUROLOGY: Mood and affect appear appropriate. Cranial nerves II through XII grossly intact. Moving all extremities, speech is clear Results - Labs CBC & Chem 7: 06/23/18 04:30 06/23/18 05:06 Laboratory Results - last 24 hr 06/24/18 06/24/18 06/25/18 17:00 20:16 07:35 POC Glucose 202 H 181 H 166 H Microbiology 06/22/18 05:30 Sputum - Expectorated Sputum Gram Stain - Final 06/22/18 05:30 Sputum - Expectorated Sputum Sputum Culture - Final Moderate growth normal respiratory brent 06/19/18 09:00 Blood - Peripheral Aerobic Blood Culture - Final No growth in 5 days 06/19/18 09:00 Blood - Peripheral Anaerobic Blood Culture - Final No growth in 5 days 06/19/18 09:10 Blood - Peripheral Aerobic Blood Culture - Final No growth in 5 days 06/19/18 09:10 Blood - Peripheral Anaerobic Blood Culture - Final No growth in 5 days Assessment and Plan - Plan Acute hypoxic respiratory failure -Multifactorial with patient having possible COPD exacerbation and community acquired pneumonia, hemoptysis -CT of the chest showed mild bibasilar consolidation, acute pneumonia in the right upper lobe, severe emphysema. -Patient continued on antibiotics for community acquired pneumonia to include Rocephin, completed Zithromax -Continue O2 supplementation to maintain O2 sat greater than 92% -Continue duo nebs every 6 hours while awake and every 2 hours as needed -Discontinue Solu-Medrol 40 mg IV every 6 hours, start prednisone 40 mg twice daily -Sputum cultures only show on normal respiratory brent -Continue easy Pap -Influenza testing was negative, streptococcal testing and Legionella testing was negative, sputum cultures showed heavy growth normal respiratory brent -Repairer [employer] is following the patient -VQ scan indicated low probability for embolic event -Patient will likely require bronchoscopy for further evaluation and treatment recommendations. It was recommended by company doctor that patient may be discharged if patient condition improves over the weekend, however if not discharged and anticipate doing bronchoscopy this week. Acute renal failure superimposed on chronic kidney disease stage III, improving -Renal functions continue to improve -Continue monitor renal function -Avoid nephrotoxins Hyperbilirubinemia, resolved -Follow-up labs shows resolution -CT scan indicated marked gallbladder wall thickening, -Gallbladder ultrasound showed nonspecific gallbladder wall thickening with slight pericholecystic fluid without gallstones the appearance is nonspecific Hyperglycemia -Likely secondary to steroid use -Hemoglobin A1c 6.2 -Accu-Cheks with sliding scale insulin Alcohol abuse -CIWA scores have all remained 0 -Discontinued CIWA protocol -Cessation counseling was provided DVT prevention -Subcutaneous heparin, on hold due to hemoptysis -Sequential compression devices
--- NOTE | 2018-06-25 15:36 | P.PN ---
Subjective Interval history: alert less sob Physical Exam Vital signs: Vital Signs 06/24/18 16:00 06/24/18 16:34 06/24/18 19:15 Temperature 98.0 F Pulse Rate 70 70 73 Respiratory Rate 23 22 22 Blood Pressure 160/88 H Pulse Oximetry 93 L 95 94 L 06/24/18 20:00 06/25/18 00:00 06/25/18 08:00 Temperature 97.7 F 96.0 F L 98.1 F Pulse Rate 69 71 71 Respiratory Rate 20 20 22 Blood Pressure 141/67 H 146/63 H 153/75 H Pulse Oximetry 93 L 95 95 06/25/18 08:13 06/25/18 12:00 Temperature 97.5 F L Pulse Rate 76 72 Respiratory Rate 20 20 Blood Pressure 165/80 H Pulse Oximetry 96 96 Intake & Output 06/24/18 06/25/18 06/25/18 18:59 06:59 18:59 Intake Total 100 / 100 580 / 580 Output Total 200 / 200 650 / 650 Balance -100 / -100 -70 / -70 Weight 80.2 kg Intake: IV 100 / 100 100 / 100 Rocephin Inj 1,000 MG In NS Inj 100 / 100 100 / 100 100 ML @ 200 mls/hr IV.SIG Q24H SHARI Rx#:[id number] Oral 480 / 480 Output: Urine 200 / 200 650 / 650 Other: # Voids 1 1 Date of Last Bowel Movement 06/23/18 Narrative: GENERAL: Well-developed, well-nourished, in no acute distress. alert and orientated HEENT: Head is normocephalic without any lesions or masses noted. Facial features are symmetric. Eyes: Extraocular muscles are intact. Conjunctivae were clear. NECK: Supple without any masses. Trachea midline no deviation. No JVD, CARDIAC: Regular rhythm, regular rate. S1/S2 are heard. No murmurs gallops or rubs. LUNGS: Diminished breath sounds noted bilaterally. No wheeze, rhonchi or rales. No use of accessory muscles on inspiration or expiration. ABDOMEN: Soft, nontender. Nondistended. Bowel sounds heard in all 4 quadrants. No organomegaly or masses. Negative rebound, negative guarding EXTREMITIES: No edema, pulses are equal bilaterally. No cyanosis or clubbing NEUROLOGY: Mood and affect appear appropriate. Cranial nerves II through XII grossly intact. Moving all extremities, speech is clear Results - Labs CBC & Chem 7: 06/23/18 04:30 06/23/18 05:06 Laboratory Results - last 24 hr 06/24/18 06/24/18 06/25/18 17:00 20:16 07:35 POC Glucose 202 H 181 H 166 H 06/25/18 11:01 POC Glucose 142 H Microbiology 06/22/18 05:30 Sputum - Expectorated Sputum Gram Stain - Final 06/22/18 05:30 Sputum - Expectorated Sputum Sputum Culture - Final Moderate growth normal respiratory brent 06/19/18 09:00 Blood - Peripheral Aerobic Blood Culture - Final No growth in 5 days 06/19/18 09:00 Blood - Peripheral Anaerobic Blood Culture - Final No growth in 5 days 06/19/18 09:10 Blood - Peripheral Aerobic Blood Culture - Final No growth in 5 days 06/19/18 09:10 Blood - Peripheral Anaerobic Blood Culture - Final No growth in 5 days Assessment and Plan - Plan respiraory failure copd pna plan o2 as needed antibx bronchodilator therapy increase activity
[2018-06-25] MEDS: clonazePAM 0.5 MG Tablet PO PRN (19:23)
[2018-06-25] MEDS: predniSONE 20 MG Tablet PO SCH (20:44)
[2018-06-25] MEDS: Latanoprost 0.005% Opth Drops 2.5 ML Bottle LEFT EYE SCH (20:49)
[2018-06-26] MEDS: clonazePAM 0.5 MG Tablet PO PRN ×2 (05:14→21:39)
--- NOTE | 2018-06-26 08:26 | P.PNIM ---
Subjective Interval history: 87-year-old male who is seen and examined today for follow-up on respiratory failure, pneumonia, hemoptysis. Patient still coughing up blood. Plans for bronchoscopy today. Vital signs are stable. Patient remains afebrile. Physical Exam Vital signs: Vital Signs 06/25/18 12:00 06/25/18 19:42 06/25/18 20:00 Temperature 97.5 F L 97.0 F L Pulse Rate 72 73 71 Respiratory Rate 20 20 18 Blood Pressure 165/80 H 137/65 Pulse Oximetry 96 94 L 90 L 06/26/18 00:00 06/26/18 07:21 Temperature 97.1 F L Pulse Rate 70 75 Respiratory Rate 18 22 Blood Pressure 148/66 H Pulse Oximetry 94 L 92 L Intake & Output 06/25/18 06/26/18 06/26/18 18:59 06:59 18:59 Intake Total 580 / 580 Output Total 1150 / 1150 400 / 400 Balance -570 / -570 -400 / -400 Weight 87.8 kg Intake: IV 100 / 100 Rocephin Inj 1,000 MG In NS Inj 100 / 100 100 ML @ 200 mls/hr IV.SIG Q24H SHARI Rx#:[id number] Oral 480 / 480 Output: Urine 1150 / 1150 400 / 400 Other: # Voids 2 Date of Last Bowel Movement 06/23/18 Narrative: GENERAL: Well-developed, well-nourished, in no acute distress. alert and orientated HEENT: Head is normocephalic without any lesions or masses noted. Facial features are symmetric. Eyes: Extraocular muscles are intact. Conjunctivae were clear. NECK: Supple without any masses. Trachea midline no deviation. No JVD, CARDIAC: Regular rhythm, regular rate. S1/S2 are heard. No murmurs gallops or rubs. LUNGS: Diminished breath sounds noted bilaterally. No wheeze, rhonchi or rales. No use of accessory muscles on inspiration or expiration. ABDOMEN: Soft, nontender. Nondistended. Bowel sounds heard in all 4 quadrants. No organomegaly or masses. Negative rebound, negative guarding EXTREMITIES: No edema, pulses are equal bilaterally. No cyanosis or clubbing NEUROLOGY: Mood and affect appear appropriate. Cranial nerves II through XII grossly intact. Moving all extremities, speech is clear Results - Labs CBC & Chem 7: 06/23/18 04:30 06/23/18 05:06 Laboratory Results - last 24 hr 06/25/18 06/25/18 06/25/18 11:01 16:30 20:42 POC Glucose 142 H 165 H 219 H 06/26/18 07:46 POC Glucose 157 H Assessment and Plan - Plan Acute hypoxic respiratory failure -Multifactorial with patient having possible COPD exacerbation and community acquired pneumonia, hemoptysis -CT of the chest showed mild bibasilar consolidation, acute pneumonia in the right upper lobe, severe emphysema. -Patient continued on antibiotics for community acquired pneumonia to include Rocephin, completed Zithromax -Continue O2 supplementation to maintain O2 sat greater than 92% -Continue duo nebs every 6 hours while awake and every 2 hours as needed -Continue prednisone 40 mg twice daily -Sputum cultures only show on normal respiratory brent -Continue easy Pap -Influenza testing was negative, streptococcal testing and Legionella testing was negative, sputum cultures showed heavy growth normal respiratory brent -Event Sales Representative is following the patient -VQ scan indicated low probability for embolic event -Plans for bronchoscopy today Acute renal failure superimposed on chronic kidney disease stage III, improving -Renal functions continue to improve -Continue monitor renal function -Avoid nephrotoxins Hyperbilirubinemia, resolved -Follow-up labs shows resolution -CT scan indicated marked gallbladder wall thickening, -Gallbladder ultrasound showed nonspecific gallbladder wall thickening with slight pericholecystic fluid without gallstones the appearance is nonspecific Hyperglycemia -Likely secondary to steroid use -Hemoglobin A1c 6.2 -Accu-Cheks with sliding scale insulin Alcohol abuse -CIWA scores have all remained 0 -Discontinued CIWA protocol -Cessation counseling was provided DVT prevention -Subcutaneous heparin, on hold due to hemoptysis -Sequential compression devices
[2018-06-26] MEDS: Verapamil SR 240 MG Tablet PO SCH (08:41)
[2018-06-26] MEDS: Insulin NovoLOG Aspart Correctional Sugar Inj SQ SCH ×4 (08:42→21:40)
[2018-06-26] MEDS: Loratadine 10 MG Tablet PO SCH (08:43)
[2018-06-26] MEDS: predniSONE 20 MG Tablet PO SCH ×2 (08:43→21:39)
[2018-06-26] MEDS: Brimonidine 0.2% Opth Drops 5 ML Bottle LEFT EYE SCH ×2 (08:45→21:37)
[2018-06-26] MEDS: Senna/Docusate Sodium 8.6/50 MG Tablet PO SCH ×2 (08:46→21:39)
[2018-06-26] MEDS: prednisoLONE Acetate 1% Opth Susp 5 ML Bottle RIGHT EYE SCH ×2 (08:47→21:37)
[2018-06-26] MEDS: Dorzolamide 2% Opth Drops 10 ML Bottle LEFT EYE SCH ×2 (08:48→21:36)
[2018-06-26] MEDS ORDERED: fentaNYL Citrate Inj 100 MCG/2 ML Ampul ONE (09:12)
[2018-06-26] MEDS ORDERED: Lidocaine 2% Jelly 5 ML Syringe ONE (10:22)
[2018-06-26] MEDS ORDERED: EPINEPHrine PF/SF Inj 1 MG/ML Ampul I-OCULAR ONE (10:22)
[2018-06-26] MEDS ORDERED: Lidocaine 2% Inj 50 ML Vial ONE (10:22)
[2018-06-26] MEDS ORDERED: Chlorhexidine Gluconate 2% 1 Pack (2 Cloths) TOPICAL ONE (10:58)
[2018-06-26] MEDS ORDERED: Sodium Chlor 0.9% Inj 500 ML IV.SIG SCH (11:00)
[2018-06-26] MEDS ORDERED: Lidocaine PF 1% Inj 5 ML Syringe INFILTRATN ONE (11:29)
--- NOTE | 2018-06-26 12:08 | XR ---
EXAM DATE: 06/26/2018 12:06 PM EST AGE/SEX: 87 years / Male INDICATIONS: Post bronchoscopy. CLINICAL DATA: This is the patient's subsequent encounter. Patient reports that signs and symptoms h ave been present for 1 day and indicates a pain score of 0/10. MEDICAL/SURGICAL HISTORY: Chronic obstructive pulmonary disease. Pacemaker. COMPARISON: [facility], CHEST 1V SINGLE AP, 06/23/2018. . FINDINGS: The heart is enlarged. There is a transvenous pacer in good position. There are small bilateral effus ions. There is chronic interstitial changes throughout the pulmonary parenchyma. This is more signifi cant on the right. Of note compared to exam of 06/23/2018 there is more infiltrate seen within the rig ht mid lung field and underlying pneumonia cannot be definitively excluded. There is no pneumothorax. CONCLUSION: Chronic interstitial changes within the parenchyma. There is increasing parenchymal opacification on the right right-sided pneumonia is not excluded. No pneumothorax identified. Electronically signed by: Bony Govea MD 06/26/2018 12:07 PM EST
--- NOTE | 2018-06-26 14:13 | MP ---
cc: Jewels Gan MD DATE OF OPERATION: 06/26/2018 PROCEDURE: Fiberoptic bronchoscopy with brushing, washings and lavage. PREOPERATIVE DIAGNOSES: Right lung infiltrate persistent and hemoptysis. POSTOPERATIVE DIAGNOSES: Right lung infiltrate persistent and hemoptysis. SURGEON: Jewels Gan MD ANESTHESIA: General with intubation. PROCEDURE AND FINDINGS: The patient was intubated under general anesthesia. Following this, the Olympus IT 180 bronchoscope was used to visualize the bronchi. The scope was advanced through the endotracheal tube into the trachea. The trachea and mihir appeared normal. The scope was then advanced into the right mainstem and right upper lobe segmental bronchi. There was a streaky area with mucus mixed in the right upper lobe bronchus and this was suctioned out and there was moderate endobronchitis observed in the right upper lobe bronchi. Saline washings were done and there was no endobronchial mass seen here. The scope was then advanced towards the right middle lobe segmental bronchi. There were some mucoid secretions with bloody secretions mixed in in the right middle lobe area, which was suctioned out. Saline washings and lavage were done. No endobronchial mass was seen. The scope was then advanced towards the right lower lobe segmental bronchi. These bronchi demonstrated bloody mucoid secretions, which were suctioned out, and saline washings were done. No endobronchial mass was seen, but there was mucosal ridging and moderate endobronchitis noted. Brushings were done from here for micro and cytology. Saline washings and lavage were carried out. The scope was then advanced into the left mainstem and left upper lobe segmental bronchi. These bronchi demonstrated few mucoid secretions, but no endobronchial lesions were seen. Next, the left lower lobe segmental bronchi were visualized, which demonstrated mucoid secretions and mild endobronchitis but no endobronchial lesions were seen. Saline washings were done and the procedure was then terminated. The patient tolerated the procedure well. Jewels Gan MD VJD/es , 11:46 AM , 11:54 AM
[2018-06-26] MEDS: Latanoprost 0.005% Opth Drops 2.5 ML Bottle LEFT EYE SCH (21:38)
[2018-06-27] MEDS: Insulin NovoLOG Aspart Correctional Sugar Inj SQ SCH ×4 (08:24→22:04)
[2018-06-27] MEDS: Dorzolamide 2% Opth Drops 10 ML Bottle LEFT EYE SCH ×2 (08:25→21:52)
[2018-06-27] MEDS: predniSONE 20 MG Tablet PO SCH ×2 (08:26→21:52)
[2018-06-27] MEDS: Loratadine 10 MG Tablet PO SCH (08:27)
[2018-06-27] MEDS: prednisoLONE Acetate 1% Opth Susp 5 ML Bottle RIGHT EYE SCH ×2 (08:28→21:52)
[2018-06-27] MEDS: Brimonidine 0.2% Opth Drops 5 ML Bottle LEFT EYE SCH ×2 (08:28→21:51)
[2018-06-27] MEDS: Verapamil SR 240 MG Tablet PO SCH (08:29)
[2018-06-27] MEDS: Senna/Docusate Sodium 8.6/50 MG Tablet PO SCH ×2 (08:30→21:52)
--- NOTE | 2018-06-27 16:58 | P.PNIM ---
Subjective Interval history: Patient is sitting upright in a chair. He continues to have a cough with hemoptysis. Physical Exam Vital signs: Vital Signs 06/26/18 20:00 06/27/18 00:00 06/27/18 08:00 Temperature 96.3 F L 98.4 F 97.9 F Pulse Rate 70 87 72 Respiratory Rate 18 18 20 Blood Pressure 152/68 H 110/70 175/79 H Pulse Oximetry 94 L 98 96 06/27/18 08:41 06/27/18 12:00 06/27/18 12:54 Temperature 98.2 F Pulse Rate 75 84 70 Respiratory Rate 22 20 24 Blood Pressure 119/56 L Pulse Oximetry 95 95 96 Intake & Output 06/26/18 06/27/18 06/27/18 18:59 06:59 18:59 Intake Total 550 / 550 1000 / 1000 580 / 580 Output Total 1500 / 1500 500 / 500 Balance 550 / 550 -500 / -500 80 / 80 Weight 88.1 kg Intake: IV 300 / 300 100 / 100 LR 1000 mL Inj 1,000 ML @ 30 200 / 200 mls/hr IV.SIG .Q24H SHARI Rx#: [id number] Rocephin Inj 1,000 MG In NS Inj 100 / 100 100 / 100 100 ML @ 200 mls/hr IV.SIG Q24H SHARI Rx#:[id number] Oral 1000 / 1000 480 / 480 Anesthesia Amount 250 / 250 Output: Urine 1500 / 1500 500 / 500 Other: # Voids 5 Date of Last Bowel Movement 06/23/18 # Bowel Movements 0 Narrative: General patient complains of hemoptysis HEENT extraocular movements are intact, nasal cannula in place Cardiovascular S1-S2 audible Respiratory coarseness on the right Abdomen soft, nontender, nondistended, normal bowel sounds Extremities no edema 2+ distal pulses in bilateral upper and lower extremities Neuro patient moves all 4 extremities, sensation is intact bilaterally Results - Labs CBC & Chem 7: 06/23/18 04:30 06/23/18 05:06 Laboratory Results - last 24 hr 06/26/18 06/26/18 06/27/18 17:18 20:14 07:42 POC Glucose 276 H 256 H 191 H 06/27/18 12:04 POC Glucose 218 H Microbiology 06/26/18 11:36 Bronchial - Bronchial Gram Stain - Final 11/12/18 11:36 Bronchial - Bronchial Bronchial Culture - Preliminary Rare growth normal respiratory brent at 24 hours 06/26/18 11:32 Bronchial Brushings - Right Lower Lobe Bronchial [place] Culture - Preliminary No growth in 24 hours Assessment and Plan - Plan This patient is an 87-year-old male with a diagnosis of COPD, atrial fibrillation, BPH, dyslipidemia, hypertension, vertigo, and history of intracranial hemorrhage. Patient was initially brought into the emergency department with complaints of shortness of breath as well as a cough for 4 days prior to admission. 1. Acute hypoxic respiratory failure secondary to COPD exacerbation with community-acquired pneumonia 2. Hemoptysis Imaging of the chest shows bibasilar consolidation as well as an infiltrate in the right upper lobe. Findings are also consistent with COPD. Patient is currently on IV antibiotics as well as supplemental oxygen. Keep O2 saturations above 92%. Continue DuoNeb treatments Continue p.o. steroids. Pulmonary following, will continue to follow the recommendations. Bronchoscopy was performed yesterday which showed some bloody secretions, otherwise no masses were identified. Cytology specimens are pending 3. USAMA on CKD possibly prerenal Serum creatinine was downtrending to 1.3 a few days ago. We will follow-up a.m. labs. Avoid nephrotoxic agents. 4. Hyperglycemia Likely secondary to steroids. Continue to monitor Accu-Cheks, continue sliding scale 5. Alcohol abuse No signs of withdrawal. Continue to monitor for signs of withdrawal. SCDs for DVT prophylaxis, patient is having hemoptysis.
[2018-06-27] MEDS: clonazePAM 0.5 MG Tablet PO PRN (17:30)
--- NOTE | 2018-06-27 19:18 | P.PN ---
Subjective Interval history: Has some hemoptysis. No chest pain or fever. Bronchial wash culture pending. Physical Exam Vital signs: Vital Signs 06/26/18 20:00 06/27/18 00:00 06/27/18 08:00 Temperature 96.3 F L 98.4 F 97.9 F Pulse Rate 70 87 72 Respiratory Rate 18 18 20 Blood Pressure 152/68 H 110/70 175/79 H Pulse Oximetry 94 L 98 96 06/27/18 08:41 06/27/18 12:00 06/27/18 12:54 Temperature 98.2 F Pulse Rate 75 84 70 Respiratory Rate 22 20 24 Blood Pressure 119/56 L Pulse Oximetry 95 95 96 Intake & Output 06/27/18 06/27/18 06/28/18 06:59 18:59 06:59 Intake Total 1000 / 1000 1420 / 1420 Output Total 1500 / 1500 1200 / 1200 Balance -500 / -500 220 / 220 Weight 88.1 kg Intake: IV 100 / 100 Rocephin Inj 1,000 MG In NS Inj 100 / 100 100 ML @ 200 mls/hr IV.SIG Q24H SHARI Rx#:[id number] Oral 1000 / 1000 1320 / 1320 Output: Urine 1500 / 1500 1200 / 1200 Other: Date of Last Bowel Movement 06/23/18 Narrative: GENERAL: Elderly W/M alert SKIN: Warm and dry. HEAD: Atraumatic. Normocephalic. EYES: Pupils equal and round. No scleral icterus. No injection or drainage. ENT: No nasal bleeding or discharge. Mucous membranes pink and moist. NECK: Trachea midline. No JVD. CARDIOVASCULAR: Regular rate and rhythm. RESPIRATORY: No accessory muscle use. Bilateral wheeze and crackles Right chest . Breath sounds equal bilaterally. GASTROINTESTINAL: Abdomen soft, non-tender, nondistended. Hepatic and splenic margins not palpable. MUSCULOSKELETAL: Extremities without clubbing, cyanosis, or edema. No obvious deformities. NEUROLOGICAL: Awake and alert. No obvious cranial nerve deficits. Motor grossly within normal limits. Normal speech. PSYCHIATRIC: Appropriate mood and affect; insight and judgment normal. Results - Labs CBC & Chem 7: 06/23/18 04:30 06/23/18 05:06 Laboratory Results - last 24 hr 06/26/18 06/27/18 06/27/18 20:14 07:42 12:04 POC Glucose 256 H 191 H 218 H 06/27/18 16:59 POC Glucose 238 H Microbiology 06/26/18 11:36 Bronchial - Bronchial Gram Stain - Final 06/26/18 11:36 Bronchial - Bronchial Bronchial Culture - Preliminary Rare growth normal respiratory brent at 24 hours 06/26/18 11:32 Bronchial Brushings - Right Lower Lobe Bronchial [place] Culture - Preliminary No growth in 24 hours Assessment and Plan - Assessment (1) Hypoxia Code(s): R09.02 - Hypoxemia Status: Acute (2) Pneumonia Code(s): J18.9 - Pneumonia, unspecified organism Status: Acute (3) Hypokalemia Code(s): E87.6 - Hypokalemia Status: Acute (4) COPD exacerbation Code(s): J44.1 - Chronic obstructive pulmonary disease with (acute) exacerbation Status: Acute (5) Pacemaker Code(s): Z95.0 - Presence of cardiac pacemaker Status: Acute (6) History of cardiac pacemaker Code(s): Z95.0 - Presence of cardiac pacemaker Status: Acute (7) Hemoptysis Code(s): R04.2 - Hemoptysis Status: Acute - Plan 1. Cont antibiotic Rocephin and switch to ceftin 500 mg BID 2. O2 2 L N/C 3. Duoneb nebs qid. 4. Symbicort 160/4.5 mcg , 2 puffs BID 5. Labs in am 6. Add Prednisone 20 mg BID and taper 7. Home if stable in am.F/U as OP in 2 weeks 7. (2) Pneumonia Qualifiers: Pneumonia type: due to unspecified organism Laterality: right Lung location : middle lobe of lung Qualified Code(s): J18.1 - Lobar pneumonia, unspecified organism
[2018-06-27] MEDS: Latanoprost 0.005% Opth Drops 2.5 ML Bottle LEFT EYE SCH (21:52)
[2018-06-28 06:21] LABS: Baso # (Auto) 0.4 th/mm3 (0.0-0.2); Baso % (Auto) 3.3 % (0.0-2.0); Eos # (Auto) 0.1 th/mm3 (0.0-0.4); Eos % (Auto) 0.8 % (0.0-4.0); Hemoglobin 13.6 gm/dL (13.0-17.0); Lymph # (Auto) 0.3 th/mm3 (1.0-4.8); Lymph % (Auto) 2.7 % (9.0-44.0); Mean Corpuscular HGB Conc 33.2 % (32.0-36.0); Mean Corpuscular Hemoglobin 35.3 pg (27.0-34.0); Mean Corpuscular Volume 106.2 fL (80.0-100.0); Mean Platelet Volume 7.3 fL (7.0-11.0); Mono # (Auto) 0.5 th/mm3 (0.0-0.9); Mono % (Auto) 4.7 % (0.0-8.0); Neut # (Auto) 10.1 th/mm3 (1.8-7.7); Neut % (Auto) 88.5 % (16.0-70.0); Platelet Count 277 th/mm3 (150-450); Red Blood Count 3.86 mil/mm3 (4.50-5.90); Red Cell Distribution Width 12.1 % (11.6-17.2); White Blood Count 11.4 th/mm3 (4.0-11.0)
[2018-06-28 06:25] LABS: Potassium 5.1 meq/L (3.5-5.1)
[2018-06-28 06:30] LABS: Calcium 8.5 mg/dL (8.5-10.1)
[2018-06-28 06:31] LABS: Carbon Dioxide 30.4 meq/L (21.0-32.0); Magnesium 2.2 mg/dL (1.5-2.5)
[2018-06-28] MEDS: Insulin NovoLOG Aspart Correctional Sugar Inj SQ SCH ×4 (09:27→21:06)
[2018-06-28] MEDS: prednisoLONE Acetate 1% Opth Susp 5 ML Bottle RIGHT EYE SCH ×2 (09:45→21:07)
[2018-06-28] MEDS: Brimonidine 0.2% Opth Drops 5 ML Bottle LEFT EYE SCH ×2 (09:45→21:08)
[2018-06-28] MEDS: Dorzolamide 2% Opth Drops 10 ML Bottle LEFT EYE SCH ×2 (09:45→21:08)
[2018-06-28] MEDS: predniSONE 20 MG Tablet PO SCH ×2 (09:46→21:07)
[2018-06-28] MEDS: Senna/Docusate Sodium 8.6/50 MG Tablet PO SCH ×2 (09:46→21:08)
[2018-06-28] MEDS: clonazePAM 0.5 MG Tablet PO PRN (09:46)
[2018-06-28] MEDS: Loratadine 10 MG Tablet PO SCH (09:46)
[2018-06-28] MEDS: Verapamil SR 240 MG Tablet PO SCH (09:47)
--- NOTE | 2018-06-28 13:52 | XR ---
EXAM DATE: 06/28/2018 1:45 PM EST AGE/SEX: 87 years / Male INDICATIONS: . Short of breath. CLINICAL DATA: This is the patient's subsequent encounter. Patient reports that signs and symptoms h ave been present for 3 days and indicates a pain score of 0/10. MEDICAL/SURGICAL HISTORY: Chronic obstructive pulmonary disease. Pacemaker. COMPARISON: [facility]PO, CHEST 1V SINGLE AP, 06/26/2018. [facility]PO, CHEST 1V SINGLE AP, 06/23/2018. HPO, CT C HEST W/O CONTRAST, 06/19/2018. . FINDINGS: There is a pacing device in left chest. The heart size is enlarged. There is increased interstitial m arkings seen in the mid and lower right lung and the left lower lung. There are some more focal densi ty seen at the lateral right upper lung. There is relative sparing of the apices. There is minimal bl unting of the right costophrenic angle likely related to minimal effusion. CONCLUSION: Cardiomegaly. Chronic appearing interstitial disease seen bilaterally being more prominent on the right. Focal density at the lateral right upper lung. Some superimposed pneumonia may be present. Mild blunting of the right costophrenic angle likely related to mild effusion. Electronically signed by: Titus Chaudhry MD 06/28/2018 1:51 PM EST
--- NOTE | 2018-06-28 15:48 | P.DCO ---
- Physical Therapy Order: Evaluate and treat - Home Health Nursing Order: Medical education, Oxygen administration education, Nursing assessment with vital signs - Case Management Consult Case Management Consult-Home Health: Yes - Certification I have seen patient Juan Carlos Huff on 06/28/18. My clinical findings support the need for the requested home health care services because: Patient has SOB, Deconditioned with increased weakness I certify that my clinical findings support that this patient is homebound because: Unsafe to leave home unassisted
--- NOTE | 2018-06-28 15:52 | P.PNIM ---
Subjective Interval history: Patient is sitting upright today. He does not have any specific complaints this morning other than occasional hemoptysis. Physical Exam Vital signs: Vital Signs 06/27/18 19:30 06/27/18 20:00 06/28/18 00:00 Temperature 97.4 F L 98.4 F Pulse Rate 71 72 Respiratory Rate 18 18 Blood Pressure 188/81 H 140/63 Pulse Oximetry 93 L 94 L 96 06/28/18 07:58 06/28/18 08:00 06/28/18 12:00 Temperature 95.6 F L 96.6 F L Pulse Rate 70 77 70 Respiratory Rate 16 22 22 Blood Pressure 134/62 139/63 Pulse Oximetry 96 93 L 94 L Intake & Output 06/27/18 06/28/18 06/28/18 18:59 06:59 18:59 Intake Total 1420 / 1420 480 / 480 Output Total 1200 / 1200 1500 / 1500 Balance 220 / 220 -1020 / -1020 Intake: IV 100 / 100 0 / 0 Rocephin Inj 1,000 MG In NS Inj 100 / 100 100 ML @ 200 mls/hr IV.SIG Q24H [facility] Rx#:[id number] Oral 1320 / 1320 480 / 480 Output: Urine 1200 / 1200 1500 / 1500 Narrative: General patient complains of hemoptysis. He says he feels much better over the past 1 week. HEENT extraocular movements are intact, nasal cannula in place Cardiovascular S1-S2 audible Respiratory coarseness on the right Abdomen soft, nontender, nondistended, normal bowel sounds Extremities no edema 2+ distal pulses in bilateral upper and lower extremities Neuro patient moves all 4 extremities, sensation is intact bilaterally Results - Labs CBC & Chem 7: 06/28/18 05:50 06/28/18 05:50 Laboratory Results - last 24 hr 06/27/18 06/27/18 06/28/18 16:59 21:51 05:50 CBC w Diff Auto diff final WBC 11.4 H RBC 3.86 L Hgb 13.6 Hct 41.0 MCV 106.2 H MCH 35.3 H MCHC 33.2 RDW 12.1 Plt Count 277 D MPV 7.3 Neut % (Auto) 88.5 H Lymph % (Auto) 2.7 L [place] % (Auto) 4.7 Eos % (Auto) 0.8 Baso % (Auto) 3.3 H Neut # (Auto) 10.1 H Lymph # (Auto) 0.3 L [place] # (Auto) 0.5 Eos # (Auto) 0.1 Baso # (Auto) 0.4 H WBC Differential . Differential Comment . Sodium Potassium Chloride Carbon Dioxide Anion Gap BUN Creatinine Estimated GFR POC Glucose 238 H 156 H Random Glucose Calcium Magnesium 06/28/18 06/28/18 05:50 11:56 CBC w Diff WBC RBC Hgb Hct MCV MCH MCHC RDW Plt Count MPV Neut % (Auto) Lymph % (Auto) [place] % (Auto) Eos % (Auto) Baso % (Auto) Neut # (Auto) Lymph # (Auto) [place] # (Auto) Eos # (Auto) Baso # (Auto) WBC Differential Differential Comment Sodium 135 L Potassium 5.1 Chloride 100 Carbon Dioxide 30.4 Anion Gap 5 BUN 38 H Creatinine 1.10 Estimated GFR 63 L POC Glucose 190 H Random Glucose 177 H Calcium 8.5 Magnesium 2.2 Microbiology 06/26/18 11:36 Bronchial Washings - Bronchial Acid Fast Bacilli Smear - Final No acid fast bacilli seen 06/26/18 11:32 Bronchial Brushings - Right Lower Lobe Acid Fast Bacilli Smear - Final No acid fast bacilli seen 06/26/18 11:36 Bronchial Washings - Bronchial Fungal Smear - Final No fungal elements seen 06/26/18 11:32 Bronchial Brushings - Right Lower Lobe Fungal Smear - Final No fungal elements seen 06/26/18 11:36 Bronchial - Bronchial Gram Stain - Final 06/26/18 11:36 Bronchial - Bronchial Bronchial Culture - Preliminary gram negative rods 06/26/18 11:32 Bronchial Brushings - Right Lower Lobe Bronchial [place] Culture - Final No growth in 48 hours - Imaging Impressions Chest X-Ray 06/28/18 00:00 CONCLUSION: Cardiomegaly. Chronic appearing interstitial disease seen bilaterally being more prominent on the right. Focal density at the lateral right upper lung. Some superimposed pneumonia may be present. Mild blunting of the right costophrenic angle likely related to mild effusion. Assessment and Plan - Plan This patient is an 87-year-old male with a diagnosis of COPD, atrial fibrillation, BPH, dyslipidemia, hypertension, vertigo, and history of intracranial hemorrhage. Patient was initially brought into the emergency department with complaints of shortness of breath as well as a cough for 4 days prior to admission. 1. Acute hypoxic respiratory failure secondary to COPD exacerbation with community-acquired pneumonia 2. Hemoptysis Imaging of the chest shows bibasilar consolidation as well as an infiltrate in the right upper lobe. Questionable abscess in the right upper lobe. I discussed the case yesterday with the operations chief. I will consult infectious disease for recommendations regarding longer term antibiotics given the questionable abscess. Hemoptysis still present, could be from the brushings during the bronchoscopy. Hemoglobin is stable. Patient is currently on IV antibiotics as well as supplemental oxygen, a walk test will be done and the patient will likely need to be discharged on supplemental oxygen. Keep O2 saturations above 92%. Continue DuoNeb treatments Continue p.o. steroids. Pulmonary following, will continue to follow the recommendations. 3. USAMA on CKD possibly prerenal Serum creatinine was downtrending to 1.3 a few days ago. 1.1 as of today. Avoid nephrotoxic agents. 4. Hyperglycemia Likely secondary to steroids. Continue to monitor Accu-Cheks, continue sliding scale 5. Alcohol abuse No signs of withdrawal. Continue to monitor for signs of withdrawal. SCDs for DVT prophylaxis, patient is having hemoptysis.
[2018-06-28] MEDS: Latanoprost 0.005% Opth Drops 2.5 ML Bottle LEFT EYE SCH (21:07)
[2018-06-29] MEDS: Loratadine 10 MG Tablet PO SCH (08:11)
[2018-06-29] MEDS: Senna/Docusate Sodium 8.6/50 MG Tablet PO SCH ×2 (08:11→20:07)
[2018-06-29] MEDS: Insulin NovoLOG Aspart Correctional Sugar Inj SQ SCH ×5 (08:12→21:06)
[2018-06-29] MEDS: predniSONE 20 MG Tablet PO SCH ×2 (08:12→20:07)
[2018-06-29] MEDS: Verapamil SR 240 MG Tablet PO SCH (08:12)
[2018-06-29] MEDS: Dorzolamide 2% Opth Drops 10 ML Bottle LEFT EYE SCH ×2 (08:13→20:01)
[2018-06-29] MEDS: Brimonidine 0.2% Opth Drops 5 ML Bottle LEFT EYE SCH ×2 (08:13→20:01)
[2018-06-29] MEDS: prednisoLONE Acetate 1% Opth Susp 5 ML Bottle RIGHT EYE SCH ×2 (08:13→20:02)
[2018-06-29] MEDS: amLODIPine 5 MG Tablet PO SCH (13:35)
--- NOTE | 2018-06-29 13:51 | P.CONID ---
History of Present Illness Service: Infectious Disease Consult date: 06/29/18 Requesting Physician: Lai Enriquez Reason for Consult: evaluate evaluate patient with pneumonia, possible abscess Primary Care Provider: Raffy Cooley MD Chief Complaint: Shortness of breath History of Present Illness: Patient seen and examined. Records reviewed. Patient is an 87-year-old male, with known COPD, presented to the hospital complaining of 3-4-day history of worsening shortness of breath wheezing and nonproductive cough. Patient stated about 3 weeks prior to onset of symptoms he was playing 3 rounds of golf per week. Since he started getting sick he was really short of breath that he could not play any kind of golf and any kind of physical activity. He has a nebulizer treatment and he started using it more often but he was not improving. Has not had any fever chills or sweats. Denies any chest pain. On the day he presented to the hospital, patient started bringing up some dark maroon color blood in the sputum. Patient was admitted and since admission he has not been febrile. His WBC is normal. Legionella and pneumococcal antigen were negative. His chest x-ray showing extensive infiltrate on the right lung. He was started on Rocephin. His hemoptysis persisted, and he subsequently underwent bronchoscopy on June 26. Patient states that he continues to have shortness of breath. Has not really noted any improvement. Denies any chest pain. He is still having hemoptysis and the blood looks more bright red compared to before. Chest x-ray has not really shown any significant change in the right lung infiltrate. He is on nasal O2. He denies any nausea or vomiting. He is not having diarrhea or any urinary complaints. The issue of abscess is brought up and infectious disease consultation has been requested to make recommendation regarding his antibiotics. Review of Systems Constitutional: Reports anorexia, Reports lack of energy, Denies chills, Denies fever(s), Denies night sweats Eyes: Denies discharge, Denies dry eyes Ears, Nose, Mouth, and Throat: Denies difficulty swallowing, Denies facial pain , Denies headache(s), Denies mouth lesions, Denies nasal discharge, Denies pain with swallowing, Denies sore throat Cardiovascular: Reports shortness of breath, Denies chest pain Respiratory: Reports chest congestion, Reports cough, Reports coughing up blood , Reports shortness of breath, Reports wheezing Gastrointestinal: Reports abdominal pain, Denies loose stools, Denies nausea, Denies pain with swallowing, Denies vomiting Genitourinary: Denies difficulty urinating, Denies painful urination Skin/Breast: Denies rash, Denies sores PMFSH - History History Provided By: Patient - Medical History Medical History: Medical History (Last Reviewed 06/29/18 @ 14:01 by Monique Chance MD) Pacemaker (Acute) Atrial fibrillation BPH (benign prostatic hyperplasia) COPD (chronic obstructive pulmonary disease) High cholesterol Hypertension Intracranial hemorrhage Vertigo - Family History Family History: Family History (Last Reviewed 06/29/18 @ 14:01 by Monique Chance MD) Other No pertinent family history - Tobacco History Second Hand Smoke Exposure: No Smoking Status: Former smoker - Alcohol History How Often Do You Have a Drink Containing Alcohol: 4 or more times a week - Substance Use History Substance History: No History of Abuse - Substance Use Type Alcohol Status: Active Route Used: By Mouth Frequency: 2 mixed drinks/day - Travel History Recent Travel in the [place] Within the Last 8 Weeks: No Recent Travel Out of the Country Within the Last 8 Weeks: No - Immunization History Tetanus Immunization: >5 Years Hx Influenza Vaccine This Season: Yes Medications and Allergies Active Medications: Active Medications Acetaminophen (Tylenol) 650 mg PO Q4H PRN PRN Reason: Temp > 100.4 Albuterol (Duoneb Neb (Prn)) 1 ampul NEB Q2HR NEB PRN PRN Reason: SHORTNESS OF BREATH/WHEEZING Last Admin: 06/29/18 11:52 Dose: 1 ampul Amlodipine Besylate (Norvasc) 5 mg PO DAILY [facility] Last Admin: 06/29/18 13:35 Dose: 5 mg Aspirin (Aspirin) 325 mg PO DAILY [facility] Last Admin: 06/22/18 09:32 Dose: 325 mg Bisacodyl (Dulcolax Supp) 10 mg RECTAL DAILY PRN PRN Reason: SEVERE CONSITIPATION Brimonidine Tartrate (Alphagan 0.2% Opth Drops) 1 drops LEFT EYE BID [facility] Last Admin: 06/29/18 08:13 Dose: 1 drops Clonazepam (Klonopin) 0.5 mg PO Q8H PRN PRN Reason: ANXIETY Last Admin: 06/28/18 09:46 Dose: 0.5 mg Clonidine HCl (Catapres) 0.2 mg PO HS [facility] Last Admin: 06/28/18 21:07 Dose: 0.2 mg Dextrose (D50w Vial) 50 ml IV.PUSH UNSCH PRN PRN Reason: PER HYPOGLYCEMIA PROTOCOL Dorzolamide HCl (Trusopt 2% Opth Drops) 1 drop LEFT EYE BID [facility] Last Admin: 06/29/18 08:13 Dose: 1 drop Fluticasone Propionate (Flonase Nasal [place]) 2 spray EACH NARE DAILY PRN PRN Reason: ALLERGIES Glucagon (Glucagon Inj) 1 mg OTHER PRN PRN PRN Reason: for Hypoglycemia Protocol Heparin Sodium (Porcine) (Heparin Inj) 5,000 units SQ Q12HR [facility] Last Admin: 06/22/18 09:32 Dose: 5,000 units Sodium Chloride (Ns Inj) 500 mls @ 30 mls/hr IV.SIG .Q10H [facility] Last Admin: 06/26/18 12:17 Dose: Not Given Cefepime HCl 2,000 mg/ Sodium (Chloride) 100 mls @ 200 mls/hr IV.SIG Q12H [facility] Insulin Aspart (Novolog Insulin [place] Sugar Inj) 0 unit SQ ACHS [facility]; Protocol Last Admin: 06/29/18 11:48 Dose: 1 unit Lactulose (Lactulose Liq) 30 ml PO DAILY PRN PRN Reason: SEVERE CONSITIPATION Last Admin: 06/23/18 10:43 Dose: 30 ml Latanoprost (Xalatan 0.005% Opth Drops) 1 drop LEFT EYE [facility] Last Admin: 06/28/18 21:07 Dose: 1 drop Loratadine (Claritin) 10 mg PO DAILY [facility] Last Admin: 06/29/18 08:11 Dose: 10 mg Metoprolol Succinate (Toprol Xl) 50 mg PO BID [facility] Last Admin: 06/29/18 08:11 Dose: 50 mg Ondansetron HCl (Zofran Inj) 4 mg IV.PUSH Q6H PRN PRN Reason: NAUSEA OR VOMITING Pantoprazole Sodium (Protonix) 40 mg PO HS [facility] Last Admin: 06/28/18 21:06 Dose: 40 mg Prednisolone Acetate (Pred Forte 1% Opth Susp) 1 drop RIGHT EYE BID [facility] Last Admin: 06/29/18 08:13 Dose: 1 drop Prednisone (Deltasone) 20 mg PO BID [facility] Last Admin: 06/29/18 08:12 Dose: 20 mg Senna/Docusate Sodium (Chanelle-Colace) 1 tab PO BID [facility] Last Admin: 06/29/18 08:11 Dose: 1 tab Sennosides (Senokot) 17.2 mg PO Q12H PRN PRN Reason: Moderate Constipation Sodium Chloride (Ns Flush) 2 ml IV.FLUSH BID [facility] Last Admin: 06/29/18 08:13 Dose: 2 ml Tamsulosin HCl (Flomax) 0.4 mg PO DAILY [facility] Last Admin: 06/29/18 08:11 Dose: 0.4 mg Thiamine HCl (Vitamin B1) 100 mg PO DAILY [facility] Last Admin: 06/29/18 08:11 Dose: 100 mg Verapamil HCl (Isoptin Sr) 240 mg PO DAILY [facility] Last Admin: 06/29/18 08:12 Dose: 240 mg Allergies Allergy/AdvReac Type Severity Reaction Status Date / Time No Known Allergies Allergy Verified 06/19/18 09:04 Home Medications Medication Instructions Recorded Confirmed Type acetaminophen [Tylenol] 500 mg PO BID 06/19/18 06/19/18 History alfuzosin 10 mg PO HS 06/19/18 06/19/18 History aspirin 325 mg PO DAILY 06/19/18 06/19/18 History brimonidine 1 drp LEFT EYE BID 06/19/18 06/19/18 History clonidine HCl 0.2 mg PO HS 06/19/18 06/19/18 History dorzolamide 1 drp LEFT EYE BID 06/19/18 06/19/18 History fexofenadine [Pamela Allergy] 180 mg PO DAILY 06/19/18 06/19/18 History fluticasone 2 spray INTRANASAL DAILY PRN 06/19/18 06/19/18 History ipratropium-albuterol 3 ml INHALATION Q8H 06/19/18 06/19/18 History latanoprost 1 drp LEFT EYE QPM 06/19/18 06/19/18 History losartan-hydrochlorothiazide 1 tab PO DAILY 06/19/18 06/19/18 History metoprolol succinate 50 mg PO BID 06/19/18 06/19/18 History omeprazole 40 mg PO HS 06/19/18 06/19/18 History tiotropium-olodaterol [Stiolto 2 puff INHALATION DAILY 06/19/18 06/19/18 History Respimat] verapamil 240 mg PO DAILY 06/19/18 06/19/18 History prednisolone acetate 1 drp OPHTHALMIC (EYE) BID 06/22/18 06/22/18 History Exam Vital signs: Vital Signs 06/28/18 16:00 06/28/18 20:00 06/28/18 20:15 Temperature 96.3 F L 96 F L Pulse Rate 92 H 74 Respiratory Rate 22 20 Blood Pressure 124/60 174/82 H Pulse Oximetry 94 L 95 93 L Pulse Oximetry [Resting on Room Air] Pulse Oximetry [Resting with Oxygen] 06/29/18 00:00 06/29/18 04:00 06/29/18 07:50 Temperature 96.6 F L 96.5 F L Pulse Rate 69 72 Respiratory Rate 20 20 Blood Pressure 161/76 H 160/83 H Pulse Oximetry 95 93 L Pulse Oximetry [Resting on Room Air] 87 L Pulse Oximetry [Resting with Oxygen] 91 L 06/29/18 08:00 06/29/18 11:55 06/29/18 12:00 Temperature 96.2 F L 99.1 F Pulse Rate 70 72 72 Respiratory Rate 20 22 20 Blood Pressure 191/84 H 165/73 H Pulse Oximetry 91 L 91 L Pulse Oximetry [Resting on Room Air] Pulse Oximetry [Resting with Oxygen] Intake & Output 06/28/18 06/29/18 06/29/18 18:59 06:59 18:59 Intake Total 640 / 640 580 / 580 100 / 100 Output Total 300 / 300 825 / 825 Balance 340 / 340 -245 / -245 100 / 100 Weight 87.7 kg Intake: IV 100 / 100 100 / 100 Rocephin Inj 1,000 MG In NS Inj 100 / 100 100 / 100 100 ML @ 200 mls/hr IV.SIG Q24H [facility] Rx#:[id number] Oral 640 / 640 480 / 480 Output: Urine 300 / 300 825 / 825 Other: # Voids 4 # Bowel Movements 0 Narrative: Physical examination GENERAL: Patient is a well-nourished, well-developed male, awake and alert, dyspneic at rest, he is on nasal O2 SKIN: Cool and dry. No generalized rash. Has some ecchymoses in anterior abdominal wall. HEAD: Atraumatic. Normocephalic. No temporal wasting, or tenderness. EYES: [place] conjunctiva. No petechia or hemorrhage. Pupils equal, round and reactive to light. Extraocular movements full and intact. No scleral icterus. No injection or drainage. EARS, NOSE AND THROAT: Nose without bleeding or purulent nasal discharge. No sinus tenderness. Mucous membranes pink and moist. No oral lesions noted. No exudate. No oral thrush. NECK: Trachea midline. Supple and not tender, no meningeal signs CARDIOVASCULAR: Regular rate and rhythm. No murmurs, rubs or gallops heard RESPIRATORY: Decreased breath sounds bianca. No rales, wheezing or rhonchi ABDOMEN: Soft, non-tender, nondistended. Bowel sounds present and normoactive. No guarding. No rebound. No organomegaly. EXTREMITIES: No clubbing, cyanosis, or edema. No joint effusion, has good ROM. No calf tenderness. Well perfused and warm. NEUROLOGICAL: Awake and alert. Cranial nerves grossly intact. Motor grossly within normal limits. PSYCHIATRIC: Normal affect, calm and cooperative. LINE: No evidence of infection Results - Labs CBC & Chem 7: 06/28/18 05:50 06/28/18 05:50 Labs: Laboratory Results - last 24 hr 06/28/18 06/28/18 06/29/18 18:16 20:56 07:37 POC Glucose 278 H 172 H 120 H 06/29/18 11:13 POC Glucose 158 H - Imaging Impressions Chest X-Ray 06/28/18 00:00 CONCLUSION: Cardiomegaly. Chronic appearing interstitial disease seen bilaterally being more prominent on the right. Focal density at the lateral right upper lung. Some superimposed pneumonia may be present. Mild blunting of the right costophrenic angle likely related to mild effusion. Assessment and Plan - Plan Impression Pneumonia, R - S/P bronch, C/S GNR - ?abscess Hemoptysis Recommendation Change Abx to Cefepime - while GNR pending CT chest to further evaluate if developing an abscess Follow C/S Monitor progress I will determine course of Abxd once work-up completed I will follow along with you Thank you for this consultation
--- NOTE | 2018-06-29 15:33 | CT ---
EXAM DATE: 06/29/2018 3:14 PM EST AGE/SEX: 87 years / Male INDICATIONS: Short of breath. Evaluate for pneumonia. CLINICAL DATA: This is the patient's initial encounter. Patient reports that signs and symptoms have been present for 1 week and indicates a pain score of 2/10. MEDICAL/SURGICAL HISTORY: Chronic obstructive pulmonary disease. Hypertension. Pacemaker. RADIATION DOSE: 13.55 CTDI (mGy) COMPARISON: [facility], CT CHEST W/O CONTRAST, 06/19/2018. . TECHNIQUE: Multiple contiguous axial images were obtained through the chest without contrast. Image s were obtained in suspended respiration using multiple row detector helical technique. Using automa janet exposure control and adjustment of the mA and/or kV according to patient size, radiation dose was kept as low as reasonably achievable to obtain optimal diagnostic quality images. DICOM format imag e data is available electronically for review and comparison. FINDINGS: There is increased increased confluent opacity is seen in the right upper lobe and right middle lobe indicating increased pulmonary consolidation. Posterior right lower lobe consolidation has decreased. Left lung is unchanged. Prominent pulmonary emphysema again seen. Mediastinum unchanged. Heart is enlarged. Small right pleural effusion slightly increased in size. Di ffuse aortic calcification. Upper abdomen is unremarkable. CONCLUSION: 1. Increased right upper lobe and right middle lobe pulmonary consolidation. Posterior right lower l obe consolidation has decreased. 2. Slight increase in small right pleural effusion. Electronically signed by: Monty Hernandez MD 06/29/2018 3:31 PM EST
--- NOTE | 2018-06-29 16:51 | P.PNIM ---
Subjective Interval history: Patient says he feels similar to how he did yesterday. He still has a cough with bloody sputum. Physical Exam Vital signs: Vital Signs 06/28/18 20:00 06/28/18 20:15 06/29/18 00:00 Temperature 96 F L 96.6 F L Pulse Rate 74 69 Respiratory Rate 20 20 Blood Pressure 174/82 H 161/76 H Pulse Oximetry 95 93 L 95 Pulse Oximetry [Resting on Room Air] Pulse Oximetry [Resting with Oxygen] 06/29/18 04:00 06/29/18 07:50 06/29/18 08:00 Temperature 96.5 F L 96.2 F L Pulse Rate 72 70 Respiratory Rate 20 20 Blood Pressure 160/83 H 191/84 H Pulse Oximetry 93 L 91 L Pulse Oximetry [Resting on Room Air] 87 L Pulse Oximetry [Resting with Oxygen] 91 L 06/29/18 11:55 06/29/18 12:00 Temperature 99.1 F Pulse Rate 72 72 Respiratory Rate 22 20 Blood Pressure 165/73 H Pulse Oximetry 91 L Pulse Oximetry [Resting on Room Air] Pulse Oximetry [Resting with Oxygen] Intake & Output 06/28/18 06/29/18 06/29/18 18:59 06:59 18:59 Intake Total 640 / 640 580 / 580 100 / 100 Output Total 300 / 300 825 / 825 Balance 340 / 340 -245 / -245 100 / 100 Weight 87.7 kg Intake: IV 100 / 100 100 / 100 Rocephin Inj 1,000 MG In NS Inj 100 / 100 100 / 100 100 ML @ 200 mls/hr IV.SIG Q24H [facility] Rx#:[id number] Oral 640 / 640 480 / 480 Output: Urine 300 / 300 825 / 825 Other: # Voids 4 # Bowel Movements 0 Narrative: General patient still complaining of a cough. He still has hemoptysis. HEENT extraocular movements are intact, nasal cannula in place Cardiovascular S1-S2 audible Respiratory coarseness on the right Abdomen soft, nontender, nondistended, normal bowel sounds Extremities no edema 2+ distal pulses in bilateral upper and lower extremities Neuro patient moves all 4 extremities, sensation is intact bilaterally Results - Labs CBC & Chem 7: 06/28/18 05:50 06/28/18 05:50 Laboratory Results - last 24 hr 06/28/18 06/28/18 06/29/18 18:16 20:56 07:37 POC Glucose 278 H 172 H 120 H 06/29/18 06/29/18 11:13 16:03 POC Glucose 158 H 138 H - Imaging Impressions Chest CT 06/29/18 00:00 CONCLUSION: 1. Increased right upper lobe and right middle lobe pulmonary consolidation. Posterior right lower lobe consolidation has decreased. 2. Slight increase in small right pleural effusion. Assessment and Plan - Plan This patient is an 87-year-old male with a diagnosis of COPD, atrial fibrillation, BPH, dyslipidemia, hypertension, vertigo, and history of intracranial hemorrhage. Patient was initially brought into the emergency department with complaints of shortness of breath as well as a cough for 4 days prior to admission. 1. Acute hypoxic respiratory failure secondary to COPD exacerbation with community-acquired pneumonia 2. Hemoptysis The patient is still on supplemental oxygen and has hemoptysis. CT scan of the chest shows increased consolidation in the right upper and right middle lobes. Infectious disease now following. IV antibiotics switched to cefepime. I appreciate the recognitions from infectious disease. Continue supplemental oxygen. I will discussed the case with the pulmonary team today. Keep O2 saturations above 92%. Continue DuoNeb treatments Continue p.o. steroids. Pulmonary following, will continue to follow the recommendations. Hemoglobin is stable. 3. USAMA on CKD possibly prerenal Serum creatinine was downtrending to 1.3 a few days ago. 1.1 as of yesterday. Avoid nephrotoxic agents. 4. Hyperglycemia Likely secondary to steroids. Continue to monitor Accu-Cheks, continue sliding scale 5. Alcohol abuse No signs of withdrawal. Continue to monitor for signs of withdrawal. SCDs for DVT prophylaxis, patient is having hemoptysis.
--- NOTE | 2018-06-29 17:41 | P.PN ---
Subjective Interval history: He is still having hemoptysis. Has some leg edema. CT chest was done and showed increased consolidation in the Right lung Physical Exam Vital signs: Vital Signs 06/28/18 20:00 06/28/18 20:15 06/29/18 00:00 Temperature 96 F L 96.6 F L Pulse Rate 74 69 Respiratory Rate 20 20 Blood Pressure 174/82 H 161/76 H Pulse Oximetry 95 93 L 95 Pulse Oximetry [Resting on Room Air] Pulse Oximetry [Resting with Oxygen] 06/29/18 04:00 06/29/18 07:50 06/29/18 08:00 Temperature 96.5 F L 96.2 F L Pulse Rate 72 70 Respiratory Rate 20 20 Blood Pressure 160/83 H 191/84 H Pulse Oximetry 93 L 91 L Pulse Oximetry [Resting on Room Air] 87 L Pulse Oximetry [Resting with Oxygen] 91 L 06/29/18 11:55 06/29/18 12:00 06/29/18 16:00 Temperature 99.1 F 97.8 F Pulse Rate 72 72 Respiratory Rate 22 20 20 Blood Pressure 165/73 H 158/70 H Pulse Oximetry 91 L 90 L Pulse Oximetry [Resting on Room Air] Pulse Oximetry [Resting with Oxygen] Intake & Output 06/28/18 06/29/18 06/29/18 18:59 06:59 18:59 Intake Total 640 / 640 580 / 580 200 / 200 Output Total 300 / 300 825 / 825 Balance 340 / 340 -245 / -245 200 / 200 Weight 87.7 kg Intake: IV 100 / 100 200 / 200 Maxipime Inj 2,000 MG In NS Inj 100 / 100 100 ML @ 200 mls/hr IV.SIG Q12H SHARI Rx#:[id number] Rocephin Inj 1,000 MG In NS Inj 100 / 100 100 / 100 100 ML @ 200 mls/hr IV.SIG Q24H SHARI Rx#:[id number] Oral 640 / 640 480 / 480 Output: Urine 300 / 300 825 / 825 Other: # Voids 4 # Bowel Movements 0 Narrative: General Elderly W/M alert and dyspneic HEENT extraocular movements are intact, nasal cannula in place Cardiovascular S1-S2 audible Chest with basal crackles and mild wheezing Abdomen soft, nontender, nondistended, normal bowel sounds Extremities 2 + edema 1+ distal pulses in bilateral upper and lower extremities Neuro patient moves all 4 extremities,with no focal deficits Results - Labs CBC & Chem 7: 06/28/18 05:50 06/28/18 05:50 Laboratory Results - last 24 hr 06/28/18 06/28/18 06/29/18 18:16 20:56 07:37 POC Glucose 278 H 172 H 120 H 06/29/18 06/29/18 11:13 16:03 POC Glucose 158 H 138 H - Imaging Impressions Chest CT 06/29/18 00:00 CONCLUSION: 1. Increased right upper lobe and right middle lobe pulmonary consolidation. Posterior right lower lobe consolidation has decreased. 2. Slight increase in small right pleural effusion. Assessment and Plan - Assessment (1) Hypoxia Code(s): R09.02 - Hypoxemia Status: Acute (2) Pneumonia Code(s): J18.9 - Pneumonia, unspecified organism Status: Acute (3) Hypokalemia Code(s): E87.6 - Hypokalemia Status: Acute (4) COPD exacerbation Code(s): J44.1 - Chronic obstructive pulmonary disease with (acute) exacerbation Status: Acute (5) Pacemaker Code(s): Z95.0 - Presence of cardiac pacemaker Status: Acute (6) History of cardiac pacemaker Code(s): Z95.0 - Presence of cardiac pacemaker Status: Acute (7) Hemoptysis Code(s): R04.2 - Hemoptysis Status: Acute - Plan 1. Cont antibiotics per ID, Cefipime 2 G IV 2. O2 3 L N/C 3. Duoneb nebs qid. 4. Symbicort 160/4.5 mcg , 2 puffs BID 5. Labs in am 6. Prednisone 20 mg BID and taper 7. Add Lasix 20 mg IV today and AM 8. Add Mucomyst 20 % , 2 CC qid with nebs (2) Pneumonia Qualifiers: Pneumonia type: due to unspecified organism Laterality: right Lung location : middle lobe of lung Qualified Code(s): J18.1 - Lobar pneumonia, unspecified organism
[2018-06-29] MEDS: clonazePAM 0.5 MG Tablet PO PRN (19:56)
[2018-06-29] MEDS: Latanoprost 0.005% Opth Drops 2.5 ML Bottle LEFT EYE SCH (20:15)
[2018-06-30 07:11] LABS: Baso % (Auto) 0.1 % (0.0-2.0); Eos # (Auto) 0.1 th/mm3 (0.0-0.4); Eos % (Auto) 0.9 % (0.0-4.0); Hematocrit 37.3 % (39.0-51.0); Hemoglobin 13.3 gm/dL (13.0-17.0); Lymph # (Auto) 0.2 th/mm3 (1.0-4.8); Mean Corpuscular HGB Conc 35.8 % (32.0-36.0); Mean Corpuscular Hemoglobin 37.1 pg (27.0-34.0); Mean Corpuscular Volume 103.9 fL (80.0-100.0); Mean Platelet Volume 7.6 fL (7.0-11.0); Mono # (Auto) 0.6 th/mm3 (0.0-0.9); Mono % (Auto) 4.9 % (0.0-8.0); Neut # (Auto) 11.2 th/mm3 (1.8-7.7); Neut % (Auto) 92.1 % (16.0-70.0); Platelet Count 202 th/mm3 (150-450); Red Blood Count 3.59 mil/mm3 (4.50-5.90); Red Cell Distribution Width 12.2 % (11.6-17.2); White Blood Count 12.1 th/mm3 (4.0-11.0)
[2018-06-30 07:20] LABS: Potassium 4.3 meq/L (3.5-5.1)
[2018-06-30 07:22] LABS: Calcium 8.1 mg/dL (8.5-10.1)
[2018-06-30 07:23] LABS: Carbon Dioxide 33.3 meq/L (21.0-32.0); Magnesium 1.9 mg/dL (1.5-2.5)
--- NOTE | 2018-06-30 08:58 | P.PNIM ---
Subjective Interval history: Patient sitting upright in bed. He says his cough has improved somewhat since last night. Physical Exam Vital signs: Vital Signs 06/29/18 11:55 06/29/18 12:00 06/29/18 16:00 Temperature 99.1 F 97.8 F Pulse Rate 72 72 Respiratory Rate 22 20 20 Blood Pressure 165/73 H 158/70 H Pulse Oximetry 91 L 90 L 06/29/18 20:00 06/29/18 21:00 06/30/18 00:00 Temperature 96.9 F L 96 F L Pulse Rate 70 70 70 Respiratory Rate 20 18 20 Blood Pressure 154/67 H 139/67 Pulse Oximetry 91 L 92 L 92 L 06/30/18 03:12 06/30/18 08:00 Temperature 97.6 F Pulse Rate 74 69 Respiratory Rate 16 20 Blood Pressure 166/73 H Pulse Oximetry 93 L Intake & Output 06/29/18 06/30/18 06/30/18 18:59 06:59 18:59 Intake Total 760 / 760 300 / 300 Output Total 900 / 900 1999 / 1999 Balance -140 / -140 -1700 / -1700 Weight 86.2 kg Intake: IV 200 / 200 100 / 100 Maxipime Inj 2,000 MG In NS Inj 100 / 100 100 / 100 100 ML @ 200 mls/hr IV.SIG Q12H SHARI Rx#:[id number] Rocephin Inj 1,000 MG In NS Inj 100 / 100 100 ML @ 200 mls/hr IV.SIG Q24H SHARI Rx#:[id number] Oral 560 / 560 200 / 200 Output: Urine 900 / 900 1999 / 1999 Other: # Voids 8 Date of Last Bowel Movement 06/27/18 Narrative: HEENT extraocular movements are intact, clear oropharyngeal mucosa Cardiovascular S1-S2 audible, RRR, no murmurs rubs or gallops Respiratory clear to auscultation bilaterally Abdomen soft, nontender, nondistended, normal bowel sounds Extremities 2+ pitting bilateral lower extremities up to the shins. Neuro cranial nerves II through XII intact Results - Labs CBC & Chem 7: 06/30/18 06:25 06/30/18 06:25 Laboratory Results - last 24 hr 06/29/18 06/29/18 06/29/18 11:13 16:03 20:17 CBC w Diff WBC RBC Hgb Hct MCV MCH MCHC RDW Plt Count MPV Neut % (Auto) Lymph % (Auto) [place] % (Auto) Eos % (Auto) Baso % (Auto) Neut # (Auto) Lymph # (Auto) [place] # (Auto) Eos # (Auto) Baso # (Auto) WBC Differential Differential Comment Sodium Potassium Chloride Carbon Dioxide Anion Gap BUN Creatinine Estimated GFR POC Glucose 158 H 138 H 227 H Random Glucose Calcium Magnesium 06/30/18 06/30/18 06/30/18 06:25 06:25 07:51 CBC w Diff Auto diff final WBC 12.1 H RBC 3.59 L Hgb 13.3 Hct 37.3 L MCV 103.9 H MCH 37.1 H MCHC 35.8 RDW 12.2 Plt Count 202 MPV 7.6 Neut % (Auto) 92.1 H Lymph % (Auto) 2.0 L [place] % (Auto) 4.9 Eos % (Auto) 0.9 Baso % (Auto) 0.1 Neut # (Auto) 11.2 H Lymph # (Auto) 0.2 L [place] # (Auto) 0.6 Eos # (Auto) 0.1 Baso # (Auto) 0.0 WBC Differential . Differential Comment . Sodium 134 L Potassium 4.3 Chloride 94 L Carbon Dioxide 33.3 H Anion Gap 7 BUN 30 H Creatinine 1.00 Estimated GFR 71 L POC Glucose 155 H Random Glucose 181 H Calcium 8.1 L Magnesium 1.9 Microbiology 06/26/18 11:36 Bronchial - Bronchial Gram Stain - Final 06/26/18 11:36 Bronchial - Bronchial Bronchial Culture - Final Achromobacter xylosox/denitri - Imaging Impressions Chest CT 06/29/18 00:00 CONCLUSION: 1. Increased right upper lobe and right middle lobe pulmonary consolidation. Posterior right lower lobe consolidation has decreased. 2. Slight increase in small right pleural effusion. Assessment and Plan - Plan This patient is an 87-year-old male with a diagnosis of COPD, atrial fibrillation, BPH, dyslipidemia, hypertension, vertigo, and history of intracranial hemorrhage. Patient was initially brought into the emergency department with complaints of shortness of breath as well as a cough for 4 days prior to admission. 1. Acute hypoxic respiratory failure secondary to COPD exacerbation with community-acquired pneumonia 2. Hemoptysis The patient is still on supplemental oxygen and has hemoptysis. CT scan of the chest shows increased consolidation in the right upper and right middle lobes. Infectious disease now following. Continue IV antibiotics. I appreciate the recognitions from infectious disease. Continue supplemental oxygen. Patient was given a dose of lasix last night as he has 2+ pitting edema of his lower exts. Will give another dose of lasix today. Keep O2 saturations above 92%. Continue DuoNeb treatments Continue p.o. steroids. Pulmonary following, will continue to follow the recommendations. Hemoglobin is stable. 3. USAMA on CKD possibly prerenal USAMA improved. 4. Hyperglycemia Likely secondary to steroids. Continue to monitor Accu-Cheks, continue sliding scale 5. Alcohol abuse No signs of withdrawal. Continue to monitor for signs of withdrawal. SCDs for DVT prophylaxis, patient is having hemoptysis.
[2018-06-30] MEDS: Insulin NovoLOG Aspart Correctional Sugar Inj SQ SCH ×4 (09:28→20:10)
[2018-06-30] MEDS: prednisoLONE Acetate 1% Opth Susp 5 ML Bottle RIGHT EYE SCH ×2 (09:29→20:09)
[2018-06-30] MEDS: Brimonidine 0.2% Opth Drops 5 ML Bottle LEFT EYE SCH ×2 (09:29→20:09)
[2018-06-30] MEDS: Dorzolamide 2% Opth Drops 10 ML Bottle LEFT EYE SCH ×2 (09:29→20:10)
[2018-06-30] MEDS: amLODIPine 5 MG Tablet PO SCH (09:30)
[2018-06-30] MEDS: predniSONE 20 MG Tablet PO SCH (09:30)
[2018-06-30] MEDS: Verapamil SR 240 MG Tablet PO SCH (09:31)
[2018-06-30] MEDS: Loratadine 10 MG Tablet PO SCH (10:41)
[2018-06-30] MEDS: Senna/Docusate Sodium 8.6/50 MG Tablet PO SCH ×2 (10:41→20:08)
--- NOTE | 2018-06-30 11:34 | P.PNID ---
Subjective Remarks: Patient is an 87-year-old male, with known COPD, presented to the hospital complaining of 3-4-day history of worsening shortness of breath wheezing and nonproductive cough. Patient stated about 3 weeks prior to onset of symptoms he was playing 3 rounds of golf per week. Since he started getting sick he was really short of breath that he could not play any kind of golf and any kind of physical activity. He has a nebulizer treatment and he started using it more often but he was not improving. Has not had any fever chills or sweats. Denies any chest pain. On the day he presented to the hospital, patient started bringing up some dark maroon color blood in the sputum. Patient was admitted and since admission he has not been febrile. His WBC is normal. Legionella and pneumococcal antigen were negative. His chest x-ray showing extensive infiltrate on the right lung. He was started on Rocephin. His hemoptysis persisted, and he subsequently underwent bronchoscopy on June 26. Patient states that he continues to have shortness of breath. Has not really noted any improvement. Denies any chest pain. He is still having hemoptysis and the blood looks more bright red compared to before. Chest x-ray has not really shown any significant change in the right lung infiltrate. He is on nasal O2. He denies any nausea or vomiting. He is not having diarrhea or any urinary complaints. The issue of abscess is brought up and infectious disease consultation has been requested to make recommendation regarding his antibiotics. Notes reviewed Afebrile Coughing less Still with hemoptysis but not as frequent CT no abscess Bronch with Achromobacter WBC slightly higher No CP NO rash or itching NO diarrhea Antibiotics: Cefepime Levaquin Lines: PIV Past Medical History: Pacemaker (Acute) Atrial fibrillation BPH (benign prostatic hyperplasia) COPD (chronic obstructive pulmonary disease) High cholesterol Hypertension Intracranial hemorrhage Vertigo Allergies/Adverse Reactions: Allergies No Known Allergies Allergy (Verified 06/19/18 09:04) Objective Vital Signs 06/29/18 11:55 06/29/18 12:00 06/29/18 16:00 Temperature 99.1 F 97.8 F Pulse Rate 72 72 Respiratory Rate 22 20 20 Blood Pressure 165/73 H 158/70 H Pulse Oximetry 91 L 90 L 06/29/18 20:00 06/29/18 21:00 06/30/18 00:00 Temperature 96.9 F L 96 F L Pulse Rate 70 70 70 Respiratory Rate 20 18 20 Blood Pressure 154/67 H 139/67 Pulse Oximetry 91 L 92 L 92 L 06/30/18 03:12 06/30/18 08:00 06/30/18 11:16 Temperature 97.6 F 97.6 F Pulse Rate 74 69 71 Respiratory Rate 16 20 20 Blood Pressure 166/73 H 156/69 H Pulse Oximetry 93 L 94 L Intake & Output 06/29/18 06/30/18 06/30/18 18:59 06:59 18:59 Intake Total 760 / 760 300 / 300 Output Total 900 / 900 2000 / 2000 Balance -140 / -140 -1700 / -1700 Weight 86.2 kg Intake: IV 200 / 200 100 / 100 Maxipime Inj 2,000 MG In NS Inj 100 / 100 100 / 100 100 ML @ 200 mls/hr IV.SIG Q12H SHARI Rx#:[id number] Rocephin Inj 1,000 MG In NS Inj 100 / 100 100 ML @ 200 mls/hr IV.SIG Q24H SHARI Rx#:[id number] Oral 560 / 560 200 / 200 Output: Urine 900 / 900 2000 / 2000 Other: # Voids 8 Date of Last Bowel Movement 06/27/18 06/26/18 11:36 Bronchial - Bronchial Gram Stain - Final 06/26/18 11:36 Bronchial - Bronchial Bronchial Culture - Final Achromobacter xylosox/denitri 06/26/18 11:36 Bronchial Washings - Bronchial Acid Fast Bacilli Smear - Final No acid fast bacilli seen 06/26/18 11:36 Bronchial Washings - Bronchial Mycobacterial Culture - Pending 06/26/18 11:32 Bronchial Brushings - Right Lower Lobe Acid Fast Bacilli Smear - Final No acid fast bacilli seen 06/26/18 11:32 Bronchial Brushings - Right Lower Lobe Mycobacterial Culture - Pending 06/26/18 11:36 Bronchial Washings - Bronchial Fungal Smear - Final No fungal elements seen 06/26/18 11:36 Bronchial Washings - Bronchial Fungal Culture - Pending 06/26/18 11:32 Bronchial Brushings - Right Lower Lobe Fungal Smear - Final No fungal elements seen 06/26/18 11:32 Bronchial Brushings - Right Lower Lobe Fungal Culture - Pending 06/26/18 11:32 Bronchial Brushings - Right Lower Lobe Bronchial [place] Culture - Final No growth in 48 hours Lab - Hematology Results 06/30/18 06:25 CBC w Diff Auto diff final WBC 12.1 H RBC 3.59 L Hgb 13.3 Hct 37.3 L MCV 103.9 H MCH 37.1 H MCHC 35.8 RDW 12.2 Plt Count 202 MPV 7.6 Neut % (Auto) 92.1 H Lymph % (Auto) 2.[address] [place] % (Auto) 4.9 Eos % (Auto) 0.9 Baso % (Auto) 0.1 Neut # (Auto) 11.2 H Lymph # (Auto) 0.[address] [place] # (Auto) 0.6 Eos # (Auto) 0.1 Baso # (Auto) 0.0 WBC Differential . Differential Comment . Lab - Chemistry Results 06/28/18 06/28/18 06/28/18 11:56 18:16 20:56 Sodium Potassium Chloride Carbon Dioxide Anion Gap BUN Creatinine Estimated GFR POC Glucose 190 H 278 H 172 H Random Glucose Calcium Magnesium 06/29/18 06/29/18 06/29/18 07:37 11:13 16:03 Sodium Potassium Chloride Carbon Dioxide Anion Gap BUN Creatinine Estimated GFR POC Glucose 120 H 158 H 138 H Random Glucose Calcium Magnesium 06/29/18 06/30/18 06/30/18 20:17 06:25 07:51 Sodium 134 L Potassium 4.3 Chloride 94 L Carbon Dioxide 33.3 H Anion Gap 7 BUN 30 H Creatinine 1.00 Estimated GFR 71 L POC Glucose 227 H 155 H Random Glucose 181 H Calcium 8.1 L Magnesium 1.9 Imaging: ITS Impressions Gallbladder Ultrasound 06/22/18 00:00 CONCLUSION: 1. Nonspecific gallbladder wall thickening with slight pericholecystic fluid without gallstones. The appearance is nonspecific. Pulmonary Perfusion Imaging 06/22/18 00:00 CONCLUSION: Low probability for pulmonary embolus. Chest X-Ray 06/28/18 00:00 CONCLUSION: Cardiomegaly. Chronic appearing interstitial disease seen bilaterally being more prominent on the right. Focal density at the lateral right upper lung. Some superimposed pneumonia may be present. Mild blunting of the right costophrenic angle likely related to mild effusion. Chest CT 06/29/18 00:00 CONCLUSION: 1. Increased right upper lobe and right middle lobe pulmonary consolidation. Posterior right lower lobe consolidation has decreased. 2. Slight increase in small right pleural effusion. Physical Exam: GENERAL: awake and alert, comfortable at rest, up in chair, he is on nasal O2 SKIN: Cool and dry. No generalized rash. Has some ecchymoses in anterior abdominal wall. HEAD: Atraumatic. Normocephalic. No temporal wasting, or tenderness. EYES: [place] conjunctiva. No petechia or hemorrhage. Pupils equal, round and reactive to light. Extraocular movements full and intact. No scleral icterus. No injection or drainage. EARS, NOSE AND THROAT: Nose without bleeding or purulent nasal discharge. No sinus tenderness. Mucous membranes pink and moist. No oral lesions noted. No exudate. No oral thrush. NECK: Trachea midline. Supple and not tender, no meningeal signs CARDIOVASCULAR: Regular rate and rhythm. No murmurs, rubs or gallops heard RESPIRATORY: Decreased breath sounds bianca. No rales, wheezing or rhonchi ABDOMEN: Soft, non-tender, nondistended. Bowel sounds present and normoactive. No guarding. No rebound. No organomegaly. EXTREMITIES: No clubbing, cyanosis, or edema. No joint effusion, has good ROM. No calf tenderness. Well perfused and warm. NEUROLOGICAL: Awake and alert. Cranial nerves grossly intact. Motor grossly within normal limits. PSYCHIATRIC: Normal affect, calm and cooperative. LINE: No evidence of infection Assessment and Plan - Plan Impression Pneumonia, R - S/P bronch, C/S Achromobacter - no abscess on CT Hemoptysis Recommendation Agree with Levaquin Change Cefepime to Zosyn If stable should be able to D/C and give 14 days Levaquin Monitor progress
[2018-06-30] MEDS: Piperacil/Tazo 3.375 GM Premix 50 ML IV.SIG SCH ×2 (12:18→18:18)
--- NOTE | 2018-06-30 18:25 | P.PN ---
Subjective Interval history: he is feeling better. No fever. hemoptysis is less On O2 3 l . Will get home O2 . was on Lasix and diuresing well. Bronch culture shows Achromobacter sensitive to Levaquin Physical Exam Vital signs: Vital Signs 06/29/18 20:00 06/29/18 21:00 06/30/18 00:00 Temperature 96.9 F L 96 F L Pulse Rate 70 70 70 Respiratory Rate 20 18 20 Blood Pressure 154/67 H 139/67 Pulse Oximetry 91 L 92 L 92 L 06/30/18 03:12 06/30/18 08:00 06/30/18 11:16 Temperature 97.6 F 97.6 F Pulse Rate 74 69 71 Respiratory Rate 16 20 20 Blood Pressure 166/73 H 156/69 H Pulse Oximetry 93 L 94 L 06/30/18 15:42 06/30/18 15:46 Temperature 97.0 F L Pulse Rate 70 70 Respiratory Rate 20 20 Blood Pressure 125/58 L Pulse Oximetry 94 L Intake & Output 06/29/18 06/30/18 06/30/18 18:59 06:59 18:59 Intake Total 760 / 760 300 / 300 1000 / 1000 Output Total 900 / 900 1999 / 1999 2650 / 2650 Balance -140 / -140 -1700 / -1700 -1650 / -1650 Weight 86.2 kg Intake: IV 200 / 200 100 / 100 200 / 200 Maxipime Inj 2,000 MG In NS Inj 100 / 100 100 / 100 100 ML @ 200 mls/hr IV.SIG Q12H SHARI Rx#:[id number] Levaquin 750 mg Premix Inj 150 150 / 150 ML @ 100 mls/hr IV.SIG Q24H SAHRI Rx#:[id number] Zosyn 3.375 GM Premix 50 ML @ 50 / 50 100 mls/hr IV.SIG Q8H SHARI Rx#: [id number] Rocephin Inj 1,000 MG In NS Inj 100 / 100 100 ML @ 200 mls/hr IV.SIG Q24H SHARI Rx#:[id number] Oral 560 / 560 200 / 200 800 / 800 Output: Urine 900 / 900 1999 / 1999 2650 / 2650 Other: # Voids 8 Date of Last Bowel Movement 06/27/18 06/30/18 # Bowel Movements 1 Narrative: General: Alert Elderly W/M NAD. HEENT extraocular movements are intact, clear oropharyngeal mucosa Cardiovascular S1-S2 audible, RRR, no murmurs rubs or gallops Respiratory ,with Exp Wheeze bilaterally Abdomen soft, nontender, nondistended, normal bowel sounds Extremities 2+ pitting bilateral lower extremities up to the shins. Neuro cranial nerves II through XII intact Results - Labs CBC & Chem 7: 06/30/18 06:25 06/30/18 06:25 Laboratory Results - last 24 hr 06/29/18 06/30/18 06/30/18 20:17 06:25 06:25 CBC w Diff Auto diff final WBC 12.1 H RBC 3.59 L Hgb 13.3 Hct 37.3 L MCV 103.9 H MCH 37.1 H MCHC 35.8 RDW 12.2 Plt Count 202 MPV 7.6 Neut % (Auto) 92.1 H Lymph % (Auto) 2.0 L [place] % (Auto) 4.9 Eos % (Auto) 0.9 Baso % (Auto) 0.1 Neut # (Auto) 11.2 H Lymph # (Auto) 0.2 L [place] # (Auto) 0.6 Eos # (Auto) 0.1 Baso # (Auto) 0.0 WBC Differential . Differential Comment . Sodium 134 L Potassium 4.3 Chloride 94 L Carbon Dioxide 33.3 H Anion Gap 7 BUN 30 H Creatinine 1.00 Estimated GFR 71 L POC Glucose 227 H Random Glucose 181 H Calcium 8.1 L Magnesium 1.9 06/30/18 06/30/18 06/30/18 07:51 11:42 16:49 CBC w Diff WBC RBC Hgb Hct MCV MCH MCHC RDW Plt Count MPV Neut % (Auto) Lymph % (Auto) [place] % (Auto) Eos % (Auto) Baso % (Auto) Neut # (Auto) Lymph # (Auto) [place] # (Auto) Eos # (Auto) Baso # (Auto) WBC Differential Differential Comment Sodium Potassium Chloride Carbon Dioxide Anion Gap BUN Creatinine Estimated GFR POC Glucose 155 H 154 H 196 H Random Glucose Calcium Magnesium Microbiology 06/26/18 11:36 Bronchial - Bronchial Gram Stain - Final 06/26/18 11:36 Bronchial - Bronchial Bronchial Culture - Final Achromobacter xylosox/denitri Assessment and Plan - Assessment (1) Hypoxia Code(s): R09.02 - Hypoxemia Status: Acute (2) Pneumonia Code(s): J18.9 - Pneumonia, unspecified organism Status: Acute (3) Hypokalemia Code(s): E87.6 - Hypokalemia Status: Acute (4) COPD exacerbation Code(s): J44.1 - Chronic obstructive pulmonary disease with (acute) exacerbation Status: Acute (5) Pacemaker Code(s): Z95.0 - Presence of cardiac pacemaker Status: Acute (6) History of cardiac pacemaker Code(s): Z95.0 - Presence of cardiac pacemaker Status: Acute (7) Hemoptysis Code(s): R04.2 - Hemoptysis Status: Acute (8) Leg edema Code(s): R60.0 - Localized edema Status: Acute - Plan 1. Cont antibiotics per ID, Levaquin / Zosyn. 2. O2 3 L N/C 3. Duoneb nebs qid. 4. Symbicort 160/4.5 mcg , 2 puffs BID 5. Home O2 3 L 6. Prednisone 30 mg daily and taper 7. Cont Lasix 20 mg daily 8. Mucomyst 20 % , 2 CC qid with nebs 9. Home over weekend if stable.Will F/U as OP in 10 days (2) Pneumonia Qualifiers: Pneumonia type: due to unspecified organism Laterality: right Lung location : middle lobe of lung Qualified Code(s): J18.1 - Lobar pneumonia, unspecified organism
[2018-06-30] MEDS: clonazePAM 0.5 MG Tablet PO PRN (20:08)
[2018-06-30] MEDS: Latanoprost 0.005% Opth Drops 2.5 ML Bottle LEFT EYE SCH (20:09)
[2018-07-01] MEDS: Piperacil/Tazo 3.375 GM Premix 50 ML IV.SIG SCH (02:07)
[2018-07-01 07:38] VITALS: O2SAT 90
[2018-07-01] MEDS: Insulin NovoLOG Aspart Correctional Sugar Inj SQ SCH (08:00)
[2018-07-01] MEDS: Senna/Docusate Sodium 8.6/50 MG Tablet PO SCH (08:46)
[2018-07-01] MEDS: Verapamil SR 240 MG Tablet PO SCH (08:47)
[2018-07-01] MEDS: Loratadine 10 MG Tablet PO SCH (08:47)
[2018-07-01] MEDS: amLODIPine 5 MG Tablet PO SCH (08:47)
[2018-07-01] MEDS: prednisoLONE Acetate 1% Opth Susp 5 ML Bottle RIGHT EYE SCH (08:49)
[2018-07-01] MEDS: Brimonidine 0.2% Opth Drops 5 ML Bottle LEFT EYE SCH (08:49)
[2018-07-01] MEDS: Dorzolamide 2% Opth Drops 10 ML Bottle LEFT EYE SCH (08:50)
--- NOTE | 2018-07-01 08:56 | P.DCO ---
- Physical Therapy Order: Evaluate and treat - Home Health Nursing Order: Medical education, Oxygen administration education, Nursing assessment with vital signs - Case Management Consult Case Management Consult-Home Health: Yes - Certification I have seen patient Juan Carlos Huff on 07/01/18. My clinical findings support the need for the requested home health care services because: Patient has SOB, Deconditioned with increased weakness I certify that my clinical findings support that this patient is homebound because: Post-op weakness, Unsafe to leave home unassisted
[2018-07-01] MEDS ORDERED: predniSONE 10 MG Tablet PO SCH (09:00)
[2018-07-01 09:31] VITALS: BP 161/70; TEMP 98.1
--- NOTE | 2018-07-01 09:40 | P.DS ---
Date of admission: 06/19/18 11:05 Primary care physician: Raffy Cooley MD Brief History from admission: This is a 87-year-old male with history of COPD, atrial fibrillation, BPH, hyperlipidemia, hypertension, vertigo and remote intracranial hemorrhage. Patient presents to the emergency department complaining of shortness of breath associated with wheezing and nonproductive cough for 3-4 days. Patient was found to have a right upper and right middle lobe pneumonia subsequently admitted for acute hypoxic respiratory failure secondary to right upper middle lobe pneumonia. DS: Medications - Discharge Medications Prescriptions: amlodipine [Norvasc] 5 mg PO DAILY #30 tab furosemide [Lasix] 20 mg PO DAILY #14 tab levofloxacin [Levaquin] 750 mg PO DAILY #14 tab prednisone 10 mg PO DAILY #12 tab tiotropium-olodaterol [Stiolto Respimat] 2 puff INHALATION DAILY #1 inhaler DS: Summary Hospital Course: This patient is an 87-year-old male with a diagnosis COPD, atrial fibrillation, BPH, this lipidemia, hypertension, and history of intracranial hemorrhage. The patient was brought into our emergency department initially with complaints of shortness of breath as well as a cough that was ongoing for almost 1 week prior to admission. Chest imaging on admission showed a right sided infiltrate and the patient was subsequently admitted for acute hypoxic respiratory failure secondary to right upper and middle lobe pneumonia. 1. Acute hypoxic respiratory failure secondary to right upper and middle lobe pneumonia. 2. Acute COPD exacerbation secondary to #1 3. Hemoptysis The patient presents with the symptoms initially mentioned above. The patient was found to be tachycardic, no elevation in his WBC count initially. Imaging of the chest showed a right upper and middle lobe infiltrate. The patient was started on IV antibiotics and was kept on supplemental oxygen. He was also started on steroids and breathing treatments [id number] initially. He was evaluated by the foundry helper who recommended a bronchoscopy. Infectious disease also evaluated the patient. The patient underwent bronchoscopy and cultures grew achromobacter which was sensitive to Levaquin. The patient has received antibiotics throughout the hospitalization. He will be discharged home today with 14 days of Levaquin. The patient is currently on supplemental oxygen which he will be continued on after discharge. The patient has a history of atrial fibrillation however he also has a history of intracranial hemorrhage as per documentation. Currently has hemoptysis and aspirin will be stopped currently. He can follow-up with his primary care doctor in the next 1-2 weeks. Once the hemoptysis resolves patient can be restarted on aspirin. His hemoglobin has been stable over the past week. Patient will be discharged with a tapering dose of prednisone. He was advised to continue using his inhalers as well. Scripts were given to the patient for his medications and inhaler. Patient also has some lower extremity swelling and was given a few doses of IV Lasix over the past couple of days. He will be discharged on p.o. Lasix for the next 2 weeks. He can follow-up with his primary care doctor and if needed Lasix can be continued depending on the patient's status at that time. 4. Acute kidney injury The patient presented with acute kidney injury likely secondary to his infection and dehydration. Acute kidney injury resolved after the initiation of treatment. 5. Alcohol abuse The patient was advised to avoid alcohol. There were no signs of withdrawal during the auscultation. 6. Hypertension Continue current home medications. Losartan/hydrochlorthiazide will be stopped. I recommend following up with the patient renal panel during his next clinic visit and his antihypertensive medications can be adjusted. 7. Atrial fibrillation Patient has a diagnosis of atrial fibrillation. As per documentation is a history of intracranial hemorrhage, currently has hemoptysis. The patient was taking aspirin however this will be held on discharge given his current hemoptysis. Hemoglobin is currently stable. He should be reassessed by his primary care doctor in the next 1-2 weeks if the hemoptysis has resolved aspirin can be reconsidered. Patient will be discharged home today. - Time Spent with Patient Total time spent providing and/or coordinating discharge services: Greater than 30 minutes - Quality: VTE Deep Vein Thrombosis/Pulmonary Embolism Present on Admission: No Exam Vital signs: Vital Signs 06/30/18 11:16 06/30/18 15:42 06/30/18 15:46 Temperature 97.6 F 97.0 F L Pulse Rate 71 70 70 Respiratory Rate 20 20 20 Blood Pressure 156/69 H 125/58 L Pulse Oximetry 94 L 94 L 06/30/18 20:00 06/30/18 21:00 06/30/18 23:56 Temperature 97.0 F L 96.8 F L Pulse Rate 70 72 70 Respiratory Rate 18 20 18 Blood Pressure 141/63 H 139/68 Pulse Oximetry 92 L 95 94 L 07/01/18 03:40 07/01/18 07:37 07/01/18 07:39 Temperature Pulse Rate 70 68 Respiratory Rate 16 30 H Blood Pressure Pulse Oximetry 90 L Intake & Output 06/30/18 07/01/18 07/01/18 18:59 06:59 18:59 Intake Total 1050 / 1050 50 / 50 Output Total 2650 / 2650 800 / 800 Balance -1600 / -1600 -750 / -750 Weight 86 kg Intake: IV 250 / 250 50 / 50 Levaquin 750 mg Premix Inj 150 150 / 150 ML @ 100 mls/hr IV.SIG Q24H SHARI Rx#:[id number] Zosyn 3.375 GM Premix 50 ML @ 100 / 100 50 / 50 100 mls/hr IV.SIG Q8H SHARI Rx#: [id number] Oral 800 / 800 Output: Urine 2650 / 2650 800 / 800 Other: # Voids 3 Date of Last Bowel Movement 06/30/18 # Bowel Movements 1 Narrative: General patient in no acute distress currently on supplemental oxygen. HEENT extraocular movements are intact, clear oropharyngeal mucosa, no JVD Cardiovascular S1-S2 audible, RRR, no murmurs rubs or gallops Respiratory rhonchi auscultated on the right. Abdomen soft, nontender, nondistended, normal bowel sounds Extremities 1+ pitting edema of bilateral lower extremities up to the shins. Neuro cranial nerves II through XII intact Results Procedures completed during hospitalization: Bronchoscopy Labs on day of discharge: Labs from last 24 hours 07/01/18 06/30/18 06/30/18 07:42 19:44 16:49 POC Glucose 90 275 H 196 H 06/30/18 11:42 POC Glucose 154 H - Impressions ITS Impressions Gallbladder Ultrasound 06/22/18 00:00 CONCLUSION: 1. Nonspecific gallbladder wall thickening with slight pericholecystic fluid without gallstones. The appearance is nonspecific. Pulmonary Perfusion Imaging 06/22/18 00:00 CONCLUSION: Low probability for pulmonary embolus. Chest X-Ray 06/28/18 00:00 CONCLUSION: Cardiomegaly. Chronic appearing interstitial disease seen bilaterally being more prominent on the right. Focal density at the lateral right upper lung. Some superimposed pneumonia may be present. Mild blunting of the right costophrenic angle likely related to mild effusion. Chest CT 06/29/18 00:00 CONCLUSION: 1. Increased right upper lobe and right middle lobe pulmonary consolidation. Posterior right lower lobe consolidation has decreased. 2. Slight increase in small right pleural effusion. Discharge Plan - Discharge Disposition Patient Disposition: W/Home Health Service - Discharge Condition Condition: Stable - Discharge Order Discharge Orders: Discharge Order (Routine); Ordered 07/01/18 Ordered By: Lai Enriquez - Physicians Team Primary Care Provider: Raffy Cooley Attending Provider: Lai Enriquez Other Providers: Titus Lobo MD ; Monique Chance MD
[2018-07-01 10:04] VITALS: PULSE 70; RESP 28
== END 2018-07-01 11:45 | disposition home health service (06) | DRG 193 ==
LOC: PHED 08:58 → PHEDA 08:58 → PHICU 11:41 → PH3 06-24 21:04
PROVIDERS: ADMIT Hospitalist; ATTEND Hospitalist
CPT/HCPCS: 36600; 71010; 71020; 71045; 71046; 71250; 76705; 76937; 78582; 80048; 80053; 81001; 82550; 82805; 82948; 82962; 83036; 83605; 83735; 84484; 85025; 85610; 85730; 87015; 87040; 87070; 87071; 87077; 87102; 87116; 87186; 87205; 87206; 87275; 87276; 87449; 87804; 88112; 88305; 90765; 90775; 93005; 94618; 94620; 94640; 94651; 94664; 94665; 94667; 96365; 96375; 97110; 97116; 97161; 99291; A9519; A9540; A9567; C1094; J0171; J0456; J0692; J0696; J1644; J1815; J1940; J1956; J2001; J2543; J2704; J2920; J2930; J3010; J7030; J7050; J7120; J7506; J7512